=== PATIENT | male | born 1945 | race Caucasian/White ===

== ENCOUNTER 2017-01-01 11:44 | Day surgery (SDC) | payer MEDICARE, BC ==
[2016-12-31 14:51] VITALS: BMI 31.8
[2017-01-01] MEDS ORDERED: Propofol 200 MG/20 ML VIAL ONE (14:12)
[2017-01-01] MEDS ORDERED: Lidocaine 1% PF 5 ML VIAL ONE (14:12)
[2017-01-01] MEDS ORDERED: PHENYLEPHRINE-NS 100 MCG/ML 10 ML SYRINGE ONE (14:12)
--- NOTE | 2017-01-01 15:39 | OP ---
PREOPERATIVE DIAGNOSES: 1. Cirrhosis, rule out varices. 2. Chronic diarrhea. 3. History of colon polyps. PROCEDURE IN DETAIL: After informed consent was obtained, the patient was placed in the left latera l decubitus position. Anesthesia was administered per the Anesthesia Department. Forward-viewing e ndoscope was inserted into the esophagus under direct visualization with ease and passed to the seco nd portion of the duodenum where the second portion of the duodenum was normal. Random biopsies wer e taken to rule out celiac or other causes of diarrhea. The small bowel was normal. The duodenal b ulb was normal. The pylorus, antrum, body, fundus, and cardia were normal except for some atrophic gastritis. Retroflexion in the stomach was normal. No varices were seen in either stomach or esoph velma. ASSESSMENT: 1. Atrophic gastritis. 2. Otherwise normal esophagogastroduodenoscopy - no varices; status post biopsies of the second por tion of the duodenum to rule out sprue. RECOMMENDATIONS: 1. Await histopathology. 2. Proceed with colonoscopy. DESCRIPTION OF THE PROCEDURE: After informed consent was obtained, the patient placed in the left l ateral decubitus position. Anesthesia was administered per the Anesthesia Department. Forward-view ing endoscope was inserted into the rectum and passed to the cecum with ease. The cecum, ileocecal valve, and appendiceal orifice were normal. The terminal ileum was normal. The prep was good. The ascending was normal. The transverse was normal. Descending and sigmoid were normal. Four small polyps were removed from the transverse and sigmoid colon and these were all removed with cold snare . Random biopsies were taken from the left and right colon to rule out microscopic colitis. Left-s ided diverticulosis was noted as well. ASSESSMENT: 1. Four small colon polyps - status post cold snare polypectomy. 2. Left-sided diverticulosis coli. 3. Otherwise normal colonoscopy. RECOMMENDATIONS: 1. Await histopathology. 2. Follow up in my office in 2 weeks.
== END 2017-01-03 15:40 | disposition home or self-care (01) ==
LOC: SDC 11:44
PROVIDERS: ATTEND Internal Medicine Gastroenterology
PROC: 0DBL8ZX Excision of Transverse Colon, Via Natural or Artificial Opening Endoscopic, Diagnostic (ICD-10-PCS; principal; 2017-01-01)
PROC: 0DBN8ZX Excision of Sigmoid Colon, Via Natural or Artificial Opening Endoscopic, Diagnostic (ICD-10-PCS; 2017-01-01)
PROC: 0DJ08ZZ Inspection of Upper Intestinal Tract, Via Natural or Artificial Opening Endoscopic (ICD-10-PCS; 2017-01-01)
DX: D12.3 Benign neoplasm of transverse colon (principal); K63.5 Polyp of colon; K57.30 Diverticulosis of large intestine without perforation or abscess without bleeding; K29.40 Chronic atrophic gastritis without bleeding; K74.60 Unspecified cirrhosis of liver; I11.0 Hypertensive heart disease with heart failure; I50.32 Chronic diastolic (congestive) heart failure; I47.2 Ventricular tachycardia; I25.10 Atherosclerotic heart disease of native coronary artery without angina pectoris; E11.9 Type 2 diabetes mellitus without complications; E78.5 Hyperlipidemia, unspecified; Z88.1 Allergy status to other antibiotic agents; Z79.899 Other long term (current) drug therapy; Z79.82 Long term (current) use of aspirin; Z98.1 Arthrodesis status; Z98.890 Other specified postprocedural states; Z95.5 Presence of coronary angioplasty implant and graft; Z87.891 Personal history of nicotine dependence
CPT/HCPCS: 36416; 88305; J2001; J2704

== ENCOUNTER 2017-03-15 09:02 | Emergency (ER) | payer MEDICARE, BC ==
[2017-03-15] MEDS ORDERED: Morphine 4 MG/ML VIAL ONE (09:27)
[2017-03-15 09:43] LABS: #Eosinphils 0.4 thou/uL (0.0-0.7); #Lymphocytes 1.2 thou/uL (1.20-3.40); #Monocytes 0.6 thou/uL (0.11-0.59); #Neutrophils 4.9 thou/uL (1.40-6.50); %Basophils 0.3 % (0.0-1.0); %Eosinophils 5.5 % (0.0-10.0); %Lymphocytes 16.7 % (21.0-51.0); %Monocytes 7.8 % (0.0-10.0); Hematocrit 48.5 % (42.0-52.0); Mean Platelet Volume 7.5 fL (7.4-10.4); Red Blood Cell (RBC) Count 4.85 mill/uL (4.70-6.10)
[2017-03-15 09:46] LABS: PTT 29.5 SEC (22.9-36.1); Prothrombin Time 14.1 SEC (12.0-14.7)
[2017-03-15 10:03] LABS: ALT (SGPT) 63 U/L (8-55); AST (SGOT) 63 U/L (5-34); Alkaline Phosphatase 98 U/L (40-150); Anion Gap 14 mmol/L (10-20); BUN (Urea Nitrogen) 24 mg/dL (8.4-25.7); Bilirubin, Total 0.8 mg/dL (0.2-1.2); Calc. Creatinine Clearance 0 mL/min (70-130); Calcium 9.3 mg/dL (7.8-10.44); Carbon Dioxide 22 mmol/L (23-31); Chloride 104 mmol/L (98-107); Estimated GFR-MDRD 62; Globulin 3.4 g/dL (2.4-3.5); Lipase 48 U/L (8-78)
--- NOTE | 2017-03-15 11:57 | CT ---
HEAD CT WIHTOUT CONTRAST: DATE: 03/15/17. COMPARISON: 09/19/16. HISTORY: Fell out of bed, hit head on nightstand, trauma, pain. TECHNIQUE: Serial axial CT imaging obtained at 5 mm intervals from the vertex through the skull base without con trast. FINDINGS: The imaged paranasal sinuses and mastoid air cells are well aerated. There is atherosclerotic calcif ication of the cavernous carotid arteries. There is no displaced calvarial fracture, intracranial hemorrhage, midline shift, or mass effect. Th ere is atherosclerotic calcification of the distal vertebral artery. IMPRESSION: No intracranial hemorrhage or displaced calvarial fracture. POS: [facility]
--- NOTE | 2017-03-15 12:36 | CT ---
CERVICAL SPINE CT WITHOUT CONTRAST: DATE: 03/15/17. COMPARISON: 09/19/16. HISTORY: Fell out of bed, right-sided pain, trauma. TECHNIQUE: Serial axial CT imaging at 2.5 mm intervals obtained from the skull base through the lung apices with out contrast. Coronal and sagittal reformatted imaging obtained. FINDINGS: The C1 ring is intact. Moderate degenerative change present at atlantoaxial interspace. Craniocervical junction and cervico thoracic junction are intact and unchanged. There is no significant anterolisthesis or retrolisthesis seen within the cervical spine. Anterior d iskectomy and fusion hardware is present at C5-6/C6-7. There is extensive atherosclerotic calcification f the distal CCA extending into the proximal ICA and ECA bilaterally. Incompletely imaged transvenous pacing leads present. There is atherosclerotic calcification of the imaged great vessels at the level of the thoracic inlet. There is multilevel facet hypertrophic change on the left, most significant at C3-4 and C4-5 and on t he right, most prominent at C4-5, C5-6, and C6-7. There is a disk bulge with central canal stenosis at C3-4, with a probable superimposed central disk herniation, stable. Prominent facet and uncovertebral osteophyte formation on the left at C4-5 cause s neural foraminal stenosis. Posterior osteophyte and bilateral uncovertebral osteophyte formation n oted at C5-6 and C6-7. No displaced fracture or evidence of dislocation is seen. The occipital cond yles, dens, and C1-2 articulation appear within normal limits. IMPRESSION: Significant multilevel postoperative and degenerative change seen within the cervical spine, not sign ificantly changed when compared to the prior exam. No acute osseous abnormality is seen. POS: [facility]
--- NOTE | 2017-03-15 13:24 | CT ---
CT THORAX WITH IV CONTRAST CT ABDOMEN AND PELVIS WITH IV CONTRAST CT THORACIC AND LUMBAR SPINE: DATE: 03/15/17. HISTORY: Back and right shoulder pain and right rib pain after falling out of bed. COMPARISON: 09/19/16. FINDINGS: CT THORAX: A dual-lead left subclavian AICD device remains in place. Prominent atherosclerotic vascular calcifi cations are seen in the coronary arteries as well as involving the thoracic aorta. Postsurgical bradley ges related to CABG are noted. There are no findings to suggest an aortic injury. Mediastinal structures otherwise have a normal CT appearance. There is dependent bibasilar atelectasis with mild emphysematous changes seen within the right upper lobe. There is no pneumothorax or pleural effusion identified. CT ABDOMEN AND PELVIS: Again noted is lobulated contour of the liver suggesting cirrhosis. There are stable subcentimeter low-density foci seen within the left kidney which is too small to fur ther characterize. There is a lobulated appearance of the left kidney, some of which is likely relat ed to cortical scarring. The spleen, pancreas, bilateral adrenal glands, and urinary bladder demonstrate a normal CT appearanc e. Again noted is an infrarenal abdominal aortic aneurysm measuring 5.1 cm in maximal AP dimensions. Th ere is atherosclerotic plaque with an area of contrast seen in this region which could be related to small penetrating atheromatous ulcer. Dense vascular calcifications are seen throughout the abdomina l aorta and involving the iliac arteries similar to prior exam. There are no findings to suggest an acute aortic injury. There is colonic diverticulosis. No free fluid or free intraperitoneal gas is seen in the abdomen or pelvis. There has been no interv al change from the prior exam. LIMITED CT SCAN OF THORACIC AND LUMBAR SPINE: There is partial visualization of postsurgical change relating to anterior cervical fusion of the C5- 6 and C6-7 levels. Multilevel degenerative changes are seen in the thoracic as well as the lumbar spine. Again noted ar e postsurgical changes of the lumbar spine related to posterior fusion with bipedicular screws and po sterior rods transfixing the L3-4 and L4-5 levels. There is a subtle lucency surrounding the right-s ided pedicular screw in L5 suggesting hardware loosening. Vertebral body heights are within normal limits. No fracture or subluxation is visualized. IMPRESSION: 1. No acute findings are seen in the chest, abdomen, or pelvis. 2. Nodular contour of the liver which may be attributable to cirrhosis. 3. Infrarenal abdominal aortic aneurysm similar in diameter compared to the prior exam with a questi on of associated penetrating atheromatous ulcer versus eccentric atherosclerotic plaque. 4. Colonic diverticulosis. 5. Postsurgical changes of the lower cervical spine as well as involving the lower lumbar spine. No fracture or subluxation is seen involving the thoracic or lumbar spine. 6. Postsurgical changes left sacroiliac joint also seen on prior study. 7. Colonic diverticulosis. 8. The remainder of the findings are as described above. POS: [facility]
[2017-03-15] MEDS ORDERED: ISOVUE-370 76%-LOCM 1 ML ONE (17:08)
== END 2017-03-15 12:10 | disposition home or self-care (01) ==
LOC: ERS 09:02
DX: S00.83XA Contusion of other part of head, initial encounter (principal); S20.211A Contusion of right front wall of thorax, initial encounter; I25.10 Atherosclerotic heart disease of native coronary artery without angina pectoris; I11.0 Hypertensive heart disease with heart failure; I50.9 Heart failure, unspecified; E11.9 Type 2 diabetes mellitus without complications; E78.5 Hyperlipidemia, unspecified; Z79.899 Other long term (current) drug therapy; Z79.4 Long term (current) use of insulin; Z79.82 Long term (current) use of aspirin; W06.XXXA Fall from bed, initial encounter
CPT/HCPCS: 36415; 70450; 71260; 72125; 74177; 80053; 83690; 85025; 85610; 85730; 86850; 86900; 86901; 96374; J2270

== ENCOUNTER 2017-07-04 16:58 | Inpatient (IN) | payer MEDICARE, BC ==
[~2017-07-04 16:58] MED LIST: ISOVUE-370 76%-LOCM 1 ML ONE
[2017-07-04 17:49] LABS: #Basophils 0.1 thou/uL (0.0-0.2); #Eosinphils 0.4 thou/uL (0.0-0.7); #Lymphocytes 1.3 thou/uL (1.20-3.40); #Monocytes 0.8 thou/uL (0.11-0.59); #Neutrophils 4.1 thou/uL (1.40-6.50); %Basophils 0.8 % (0.0-1.0); %Eosinophils 5.4 % (0.0-10.0); %Lymphocytes 19.3 % (21.0-51.0); %Neutrophils 62.4 % (42.0-75.0); Hemoglobin 15.3 g/dL (14.0-18.0); Mean Corpuscular HGB CONC 32.9 g/dL (32.0-36.0); Mean Corpuscular Hemoglobin 32.2 pg (27.0-31.0); Mean Corpuscular Volume 97.8 fl (80.0-94.0); Mean Platelet Volume 7.7 fL (7.4-10.4); Platelet Count 164 thou/uL (130-400); RBC Distribution Width 13.7 % (11.5-14.5); Red Blood Cell (RBC) Count 4.74 mill/uL (4.70-6.10); White Blood Cell (WBC) Count 6.5 thou/uL (4.8-10.8)
[2017-07-04] MEDS ORDERED: Morphine 4 MG/ML VIAL ONE (18:00)
[2017-07-04 18:14] LABS: ALT (SGPT) 56 U/L (8-55); AST (SGOT) 70 U/L (5-34); Albumin 3.4 g/dL (3.4-4.8); Alkaline Phosphatase 103 U/L (40-150); Anion Gap 14 mmol/L (10-20); BUN (Urea Nitrogen) 19 mg/dL (8.4-25.7); Bilirubin, Total 0.8 mg/dL (0.2-1.2); CK (CPK) 64 U/L (30-200); Calc. Creatinine Clearance 0 mL/min (70-130); Calcium 9.1 mg/dL (7.8-10.44); Carbon Dioxide 23 mmol/L (23-31); Chloride 104 mmol/L (98-107); Estimated GFR-MDRD 52; Globulin 3.5 g/dL (2.4-3.5); Glucose 248 mg/dL (80-115); Potassium 4.7 mmol/L (3.5-5.1); Protein, Total 6.9 g/dL (5.8-8.1); Sodium 136 mmol/L (136-145)
[2017-07-04 18:16] LABS: Bilirubin Small (Negative); Blood, Urine Negative (Negative); Clarity CLEAR (Clear); Glucose, Urine (Dipstick) 500 mg/dL (Negative); Leukocyte Negative (Negative); Nitrite Negative (Negative); Protein, Urine (Dipstick) Negative (Neg-Trace); Specific Gravity, Urine 1.023 (1.002-1.036); pH, Urine 5.5 (5.0-9.0)
[2017-07-04 18:17] LABS: CKMB 1.8 ng/mL (0-6.6); Troponin I 0.059 ng/mL (< 0.028)
--- NOTE | 2017-07-04 19:55 | CT ---
CT HEAD NONCONTRAST: 07/04/17 INDICATION: Posttraumatic head injury, pain. FINDINGS: Reference made to 03/15/17. There is no intracranial hemorrhage, mass effect, midline shift or ventriculomegaly. Stable ossificat ion projects at the inner table left frontal bone. There is minimal chronic microvascular ischemic di sease. No acute fluid level of the imaged paranasal sinuses. IMPRESSION: No acute intracranial hemorrhage or mass effect. POS: [facility]
--- NOTE | 2017-07-04 19:57 | CT ---
CERVICAL SPINE CT NONCONTRAST: 07/04/17 INDICATION: Posttraumatic neck injury, pain. FINDINGS: Reference made to 03/15/17 exam. There is evidence of multiple anterior fusion spanning C5 through C7. No obvious acute fracture or murphy bluxation. No acute facet malalignment or significant retropulsion of bone into the vertebral canal. The craniocervical junction is intact. IMPRESSION: No obvious acute fracture of the postoperative cervical spine. POS: [facility]
--- NOTE | 2017-07-04 20:08 | CT ---
CHEST AND ABDOMEN AND PELVIS CT WITH CONTRAST CT THORACIC SPINE WITH CONTRAST AND REFORMATTED IMAGING CT LUMBAR SPINE WITH CONTRAST AND REFORMATTED IMAGING 07/04/17 CLINICAL HISTORY: Fall with injury and weakness. FINDINGS: Reference made to 03/15/17 CT exam. There are scattered patchy opacities of the lungs bilaterally, predominance of which is subpleural, a nd is similar appearing. This could be on the basis of interstitial/fibrotic lung disease. There is n o pleural effusion or pneumothorax. Scattered vascular disease is present. There is no periaortic hem atoma. There is aneurysmal dilatation of the abdominal aorta, infrarenal, measuring approximately 5.4 cm in an oblique orientation, grossly stable to prior exam. There is a cirrhotic morphology of the l iver. No definite acute posttraumatic swelling of the solid abdominal organs. Spleen is borderline in size, stable appearing. No pneumoperitoneum or significant ascites. Bowel is incompletely evaluated without enteric contrast. Patulous fat containing bilateral inguinal rings are present. Multilevel me tallic fusion involves the mid to lower lumbar spine as well as the left hemipelvis. Prior sternotomy . Left sided cardiac pacing device is present. No evidence of acute compression fracture, subluxation of the thoracolumbar spine. IMPRESSION: No definite acute posttraumatic sequela. Additional details are described above. POS: [facility]
[2017-07-04 21:03] LABS: Troponin I 0.069 ng/mL (< 0.028)
[2017-07-04] MEDS ORDERED: Methocarbamol 500 MG TAB PO SCH (22:00)
[2017-07-04] MEDS ORDERED: Aspirin 325 MG TAB ONE (22:37)
[2017-07-04] MEDS ORDERED: Enoxaparin Sodium 100 MG/ML SYRINGE ONE (23:34)
[2017-07-05 00:16] LABS: Troponin I 0.052 ng/mL (< 0.028)
[2017-07-05] MEDS ORDERED: Ondansetron HCl/PF 4 MG/2 ML Vial IVP PRN (00:48)
[2017-07-05] MEDS ORDERED: Ondansetron ODT 4 MG TAB SL PRN (00:48)
[2017-07-05] MEDS ORDERED: Acetaminophen 325 MG TAB PO PRN (00:48)
[2017-07-05] MEDS ORDERED: traMADol HCl 50 MG TAB PO PRN (01:32)
[2017-07-05 01:56] VITALS: BMI 37.3
[2017-07-05 03:27] LABS: Troponin I 0.049 ng/mL (< 0.028)
[2017-07-05] MEDS: Levothyroxine Sodium 88 MCG TAB PO SCH (05:06)
[2017-07-05] MEDS ORDERED: Methocarbamol 500 MG TAB PO SCH (09:00)
[2017-07-05] MEDS ORDERED: ZANTAC PO SCH ×2 (09:00→10:15)
[2017-07-05] MEDS ORDERED: INSULIN DEGLUDEC 35 UNIT SC SCH ×2 (09:00→10:15)
--- NOTE | 2017-07-05 09:36 | HP ---
CHIEF COMPLAINT: Status post fall, shortness of breath. HISTORY OF PRESENT ILLNESS: A 72-year-old male with a known history of coronary artery disease with prior EF calculated at less than 30%, who presents after falling and hitting his head on a truck. Th ere does not appear to be any loss of consciousness and there was no bruising or laceration noted sta tus post fall. It appears that he was previously lying down, trying to work on the vehicle, stood up and then fell after standing up. The patient also endorses having had progressive shortness of breath, particularly with exertion over the last 2 weeks. The patient states that he has been having this progressive shortness of breath m ultiple times before, particularly more frequent in the last year. At the time of my evaluation, the patient is currently at rest and states he does not have any overt shortness of breath. Denies any headache, changes in vision or dizziness. The patient denies ever h aving a prior fall similar to the one described. Patient denies any dizziness when changing position s from supine to sitting versus sitting to standing at baseline. REVIEW OF SYSTEMS: GENERAL: As per HPI. CONSTITUTIONAL: No recent fevers or chills. No significa nt weight changes in the last month that he is aware of. HEENT: No regular dizziness, no new headac hes, no new vision changes as per above. CARDIOVASCULAR: No chest pain. No chest pressure or short ness of breath with exertion as above, but none at rest. The patient does endorse some lower extremi ty swelling that has also been progressive in the last 2 weeks and this has been on and off for the l ast year. RESPIRATORY: As above, shortness of breath with exertion. Denies any cough. No postnasa l drip. No ear pain. GASTROINTESTINAL: Denies any nausea, vomiting, abdominal pain, diarrhea or co nstipation. GENITOURINARY: No issues with dysuria, change in urinary frequency, quality or quantity . MUSCULOSKELETAL: No new myalgias or arthralgias. Remainder of the review of systems otherwise negative. PAST MEDICAL HISTORY: Significant for, 1. Coronary artery disease with prior stenting and an EF as noted above. The patient denies any CAB G. 2. History of congestive heart failure. 3. JORDAN with CPAP. 4. Hypertension. 5. Hyperlipidemia. 6. Atrial fibrillation. 7. Status post ablation. 8. Status post CABG x4 vessels. 9. Status post back surgery. HOME MEDICATIONS: Please see the EMR for full details. The patient denies any changes in his home m edication in the last 2 weeks. 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 No new over the counter medications, supplements or vitamins. ALLERGIES: Includes CIPROFLOXACIN, which causes anaphylaxis. FAMILY HISTORY: The patient denies any known family history of heart failure or primary lung disease or anybody else in his family that has required a cardiac bypass surgery. SOCIAL HISTORY: The patient denies any alcohol, tobacco or drug use. Patient lives at home with his . His advanced care planning was discussed and patient wishes to be FULL CODE at this point in time. He does not meet his as his medical decision maker if he is unable to make his own medica l decisions. PHYSICAL EXAMINATION: VITAL SIGNS: Temperature 98.4, pulse of 62, respirations 20, satting 96% on 2 liters nasal cannula, blood pressure 123/92. GENERAL: The patient is awake, alert, appropriate seated in the emergency room stretcher in no acute distress, conversant, oriented x3. HEENT: Equal ocular motions are intact. Normocephalic, atraumatic. Moist mucous membranes. CARDIOVASCULAR: S1 and S2. A 2/5 systolic heart murmur best heard over the left sternal border. Pu lses 2+ in bilateral upper extremities, 2-3+ pitting pedal edema. Soft heart tones noted. RESPIRATORY: No wheezes, rales or rhonchi. Marginal air movement. Grossly clear to auscultation. ABDOMEN: Distended, but soft, positive bowel sounds. Nontender to palpation. MUSCULOSKELETAL: Able to move all 4 extremities independently. SIGNIFICANT LABORATORY DATA AND IMAGING DATA: WBC 6.5, hemoglobin 15.3, hematocrit 46.4, and platele ts 162. D-dimer 1.29, sodium 136, potassium 4.7, chloride 104, bicarbonate 23, BUN 18, creatinine 1. 35, glucose 248, total bilirubin 0.8, AST 17, ALT 56, alkaline phosphatase 103, creatinine kinase 64, troponin 0.059 followed by 0.052. UA significant for 500 of glucose and small bilirubin. On 07/04/2017, CT of the brain without contrast. Impression: No acute intracranial hemorrhage or ma ss effect. On 07/04/2017, CT of the chest, abdomen, and pelvis. Impression: No definite acute posttraumatic se quela. Additional details are described above, notable for scattered patchy opacities of the lung bi laterally, scattered vascular disease is present. There is aneurysmal dilatation of the abdominal ao rta infrarenal measuring approximately 5.4 cm in an oblique orientation grossly stable to prior exami nation. There is a cirrhotic morphology of the liver. No definite acute posttraumatic swelling of t he solid abdominal organs. ASSESSMENT AND PLAN: A 72-year-old male presenting with a chief complaint of shortness of breath and a fall after standing up. 1. Fall after standing up. 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 Check orthos tatic vital signs. Closely monitor the patient's blood pressure. Obtain echocardiogram as the patie nt has known cardiovascular disease. Could also consider carotid ultrasound as well given the patien t's history and chronology of events and negative CT noncontrast of the brain, primary stroke etiolog y is significantly less likely. 2. Shortness of breath, dyspnea with exertion. The patient has a known history of congestive heart failure with ejection fraction of less than 30% and follows Cardiology on an outpatient basis. Suspe ct that the patient's constellations of clinical symptoms are consistent with congestive heart failur e. Closely monitor the patient's diuresis as the patient is at risk for developing orthostatic hypot ension due to his episode at home. I suspect that the elevated troponins are secondary to an acute c ongestive heart failure exacerbation. Cautious inpatient IV diuresis with close monitoring of electr olytes and renal function. Consult Cardiology. Repeat echocardiogram. Trend troponins x3. Recheck EKG. 3. Elevated D-dimer in the setting of dyspnea with exertion and shortness of breath. Patient is manoj ble to undergo a repeat CTA due to having received a CT with IV contrast in the emergency department. We will check a ventilation perfusion scan for the patient as well. 4. History of abdominal aortic aneurysm. Currently, appears to be stable. Close blood pressure mon itoring. 5. Elevated creatinine. Continue to monitor closely in the setting of diuresis. 6. Hyperglycemia. Continue on home regimen. Closely monitor secondary to potentials for acute kidn ey injury as there might be decreased exogenous anti-hyperglycemic medication clearance. 7. History of cirrhosis. It is also possible that patient is having increased extravascular fluid i ncluding abdominal distention that is secondary to his cirrhotic pathology. Diuresis as per above. 8. Elevated troponin as noted above. 9. Diet: Cardiac, diabetic, hepatic. 10. Activity: Out of bed as tolerated, with physical therapy, walking program, I would also recomme nd outpatient cardiac rehabilitation at discharge. 11. Deep venous thrombosis prophylaxis. Thank you for asking me to care for your patient. If any questions or concerns, contact me at [facility].
[2017-07-05] MEDS ORDERED: Insulin Regular 300 UNITS/3 ML VIAL SC PRN (09:42)
[2017-07-05] MEDS ORDERED: Dextrose 50% Abboject 50 ML SYRINGE IVP PRN (09:42)
[2017-07-05] MEDS ORDERED: Dextrose 5% in Water 1,000 ML IV PRN (09:42)
[2017-07-05] MEDS: Ferrous Sulfate 325 MG TAB PO SCH (09:52)
[2017-07-05] MEDS: Allopurinol 100 MG TAB PO SCH (09:53)
[2017-07-05] MEDS: Potassium Chloride 20 MEQ TAB PO SCH (09:53)
[2017-07-05] MEDS: Amiodarone 200 MG TAB PO SCH (09:53)
[2017-07-05] MEDS: Furosemide 40 MG TAB PO SCH ×2 (09:54→14:40)
[2017-07-05] MEDS: Gabapentin 300 MG CAP PO SCH ×3 (09:54→21:26)
[2017-07-05] MEDS: FLUoxetine HCl 20 MG CAP PO SCH ×2 (09:54→21:26)
[2017-07-05] MEDS: Loratadine 10 MG TAB PO SCH (09:55)
[2017-07-05] MEDS: Metoprolol Tartrate 25 MG TAB PO SCH ×2 (09:55→21:25)
--- NOTE | 2017-07-05 10:21 | RAD ---
CHEST PA AND LATERAL: HISTORY: A 72-year-old male with shortness of breath. Followup fall and weakness. COMPARISON: Chest CT scan 07/04/17. FINDINGS: Left ICD. Monitor leads overlie the chest. Cardiomegaly. Mild increased markings bilaterally consi stent with some chronic change. Postop midline sternotomy. IMPRESSION: Postop midline sternotomy and implantable cardioverter defibrillator. Minimal cardiomegaly and mild chronic changes. No confluent pneumonia, overt edema, or significant pleural effusion. POS: [facility]
--- NOTE | 2017-07-05 10:38 | NM ---
VENTILATION PERFUSION LUNG SCAN: HISTORY: Elevated D-dimer. Chest injury following a fall. Shortness of breath. FINDINGS: The patient inhaled approximately 13 mCi Xenon 133 gas. Ventilation was unremarkable. Perfusion lung scan. The patient was injected with 6.6 mCi Technetium 99m MAA intravenously. No candis dence for segmental or large areas of absolute perfusion defect. Tracer distribution is slightly pat coral. Pacemaker defect is seen over the left anterior chest. IMPRESSION: Findings consistent with a very low probability of acute PE. POS: [facility]
[2017-07-05] MEDS: Methocarbamol 500 MG TAB PO SCH ×2 (14:40→21:25)
[2017-07-05] MEDS ORDERED: Sodium Chloride 0.9% 10 ML ONE (20:27)
[2017-07-05] MEDS: Aspirin 81 mg Enteric Coated Tablet PO SCH (21:26)
[2017-07-05] MEDS: Atorvastatin Calcium 40 MG TAB PO SCH (21:26)
[2017-07-05] MEDS: INSULIN DEGLUDEC 35 UNIT SC SCH (21:28)
--- NOTE | 2017-07-05 22:11 | CON ---
DATE OF CONSULTATION: 07/05/2017 HISTORY: The patient is a pleasant 72-year-old white male with longstanding history of coronary artery disease. He has undergone previous bypass surgery as well as stent placement in the LAD distal to the WHYTE insertion. He has had atrial flutter ablation, paroxysmal atrial fibrillation. He has had gastrointestinal bleeding with anticoagulation. He underwent atrial fibrillation ablation in [place] and an attempt was made to place a Watchman, but apparently his left atrium or the left atrial appendage was too small for the Watchman and it was never delivered. Also, in 08/2015, he had nonsustained ventricular tachycardia, underwent electrophysiology study, and had inducible ventricular tachycardia. His ejection fraction at that time was 50%-55%. He also underwent cardiac catheterization during that admission and his grafts were patent. He had underwent placement of a dual chamber Medtronic ICD. He has continued to have problems with diastolic heart failure. He states he has been having problems with exertional shortness of breath as well as increased peripheral edema. Yesterday, he was helping a friend work under his truck and he was on the ground. He states that he crawled out from underneath the truck and tried to get up, but was unable to. After sitting on the ground for 20 minutes, he was able to get up and walk to his truck and then he fell, striking his face on the truck. He remembers falling, remembers hitting his head, and it does not sound as if he had true syncope. He therefore was brought to the emergency room. He denies any chest discomfort, but does have some epigastric discomfort at times that radiates around both sides of his abdomen. PAST MEDICAL HISTORY: Chronic diastolic heart failure; coronary artery disease ; diabetes; atrial fibrillation, status post ablation; obesity; history of ventricular tachycardia; hyperlipidemia; obstructive sleep apnea; hypertension; mild aortic stenosis. OPERATIONS: CABG, back surgery, ICD placement. MEDICATIONS: Allopurinol 100 q.a.m., amiodarone 100 daily, aspirin 81 daily, atorvastatin 40 at bedtime, iron 65 mg daily, Prozac 40 mg b.i.d., furosemide 40 b.i.d., gabapentin 600 t.i.d., insulin, levothyroxine 88 mcg daily, metoprolol 12.5 b.i.d., potassium 20 mEq q.a.m., Zantac 75 daily. ALLERGIES: CIPRO. SOCIAL HISTORY: He does not smoke or drink. REVIEW OF SYSTEMS: Ten-point review of systems is otherwise unremarkable. PHYSICAL EXAMINATION: VITAL SIGNS: Blood pressure 109/58, pulse 61. HEENT: PERRL. NECK: Supple. CHEST: Reveals crackles at both bases. CARDIAC: S1, S2 are normal without any S3 or S4. There is a 2/6 systolic murmur in the aortic area. Carotid upstrokes are normal without bruits. ABDOMEN: Obese. Normal bowel sounds. No tenderness. EXTREMITIES: Revealed 2+ pretibial edema to the thigh. NEUROLOGIC: Grossly intact. SKIN: Warm and dry. LABORATORY DATA: EKG reveals atrial pacing with diffuse T-wave inversion. Chest x-ray revealed minimal cardiomegaly with ICD in place. Chest, abdominal, and pelvis CT revealed no definite posttraumatic sequelae. Brain CT was unremarkable. He also underwent V/Q scan, which was consistent with low probability of pulmonary embolism. Hemoglobin 15.3, hematocrit 46.4, white count 6500, platelets 164,000. Troponin I is 0.069. Sodium 136, potassium 4.7 , chloride 104, carbon dioxide 23, BUN 19, creatinine 1.35, glucose 248, AST 78 , ALT 56. IMPRESSION: 1. Fall without loss of consciousness. This may have been related to orthostatic hypotension. His blood pressure had been somewhat low here. He is only on very low dose metoprolol. 2. Acute on chronic diastolic heart failure, last ejection fraction of 50%-55% . He has rales on examination as well as significant peripheral edema. He has elevated liver function test, which may be due to hepatic congestion. 3. Status post coronary artery bypass grafting x4 as well as stent placement in the LAD distal to the left internal mammary artery. 4. History of atrial flutter ablation. 5. History of atrial fibrillation ablation. 6. Unable to place Watchman. 7. Hypertension. 8. Diabetes. 9. Hyperlipidemia. 10. Obesity. 11. Obstructive sleep apnea. 12. Hypothyroidism. PLAN: Echocardiogram will be performed to reassess left ventricular function. His ICD will be interrogated to evaluate his volume status as well as if he had any type of arrhythmia that could have precipitated this fall. He does not appear to be diuresing well with the p.o. Lasix and I feel we should switch this to IV for better diuresis. Also, his blood pressure needed to be watched closely and consideration may need to be given to further reduction or discontinuation of his metoprolol. MTDD
[2017-07-06] MEDS: Methocarbamol 500 MG TAB PO SCH ×3 (06:23→21:44)
[2017-07-06] MEDS: Levothyroxine Sodium 88 MCG TAB PO SCH (06:24)
[2017-07-06] MEDS: INSULIN DEGLUDEC 35 UNIT SC SCH ×2 (08:43→21:53)
[2017-07-06] MEDS: Gabapentin 300 MG CAP PO SCH ×3 (08:44→21:43)
[2017-07-06] MEDS: Furosemide 40 MG TAB PO SCH (08:44)
[2017-07-06] MEDS: Allopurinol 100 MG TAB PO SCH (08:44)
[2017-07-06] MEDS: FLUoxetine HCl 20 MG CAP PO SCH ×2 (08:44→21:43)
[2017-07-06] MEDS: Amiodarone 200 MG TAB PO SCH (08:45)
[2017-07-06] MEDS: Metoprolol Tartrate 25 MG TAB PO SCH ×2 (08:45→21:43)
[2017-07-06] MEDS: Loratadine 10 MG TAB PO SCH (08:45)
[2017-07-06] MEDS: Ferrous Sulfate 325 MG TAB PO SCH (08:45)
[2017-07-06] MEDS: Potassium Chloride 20 MEQ TAB PO SCH (08:45)
[2017-07-06] MEDS: ZANTAC PO SCH (08:46)
--- NOTE | 2017-07-06 10:37 | PDOC.PN ---
- Subjective Encounter Start Date: 07/06/17 Encounter Start Time: 10:44 Subjective: No new complaints. -: No acute events overnight. - Objective MAR Reviewed: Yes Vital Signs & Weight: Vital Signs (12 hours) Temp Pulse Resp BP BP Pulse Ox 07/06/17 08:38 98.6 F 61 136/60 97 07/06/17 04:00 98.1 F 60 12 119/61 93 L 07/05/17 23:36 97.8 F 62 13 125/63 94 L Weight Weight 282 lb 1.6 oz I&O: 07/05/17 07/06/17 07/07/17 06:59 06:59 06:59 Intake Total 120 1000 Output Total 175 1775 Balance -55 -775 Result Diagrams: 07/04/17 17:36 07/04/17 17:36 Additional Labs: Accuchecks 07/06/17 07/05/17 07/05/17 06:19 21:10 16:54 POC Glucose 189 H 150 H 165 H 07/05/17 10:47 POC Glucose 115 H Phys Exam - Physical Examination Constitutional: NAD HEENT: PERRLA, moist MMs, sclera anicteric Neck: no JVD, supple, full ROM + bibasilar crackles. Otherwise clear breath sounds. Cardiovascular: RRR, no significant murmur, no rub Gastrointestinal: soft, non-tender, no distention, positive bowel sounds Musculoskeletal: edema present (b/l lower extremities. ) Neurological: non-focal, moves all 4 limbs Psychiatric: normal affect, A&O x 3 Skin: no rash, normal turgor Dx/Plan (1) Acute CHF Code(s): I50.9 - HEART FAILURE, UNSPECIFIED Status: Acute Qualifiers: Heart failure type: diastolic Comment: Has been switched to IV diuresis w Lasix. Will monitor I/O, weights and continue home medications. ECHO pending. Cardiology on board. Recs appreciated. (2) Elevated d-dimer Code(s): R79.89 - OTHER SPECIFIED ABNORMAL FINDINGS OF BLOOD CHEMISTRY Status : Acute Comment: Suspicion for PE but VQ scan w low probability for PE. (3) Elevated serum creatinine Code(s): R79.89 - OTHER SPECIFIED ABNORMAL FINDINGS OF BLOOD CHEMISTRY Status : Acute Comment: Monitor. Likely cardiorenal 2/2 Acute CHF. (4) Elevated troponin Code(s): R74.8 - ABNORMAL LEVELS OF OTHER SERUM ENZYMES Status: Acute Comment: Most likely type 2 NSTEMI from demand ischemia due to acute heart failure (5) Hypothyroidism Code(s): E03.9 - HYPOTHYROIDISM, UNSPECIFIED Status: Acute Qualifiers: Hypothyroidism type: unspecified Qualified Code(s): E03.9 - Hypothyroidism , unspecified Comment: Continue Levothyroxine. (6) Fall Code(s): W19.XXXA - UNSPECIFIED FALL, INITIAL ENCOUNTER Status: Acute Qualifiers: Encounter type: subsequent encounter Qualified Code(s): W19.XXXD - Unspecified fall, subsequent encounter Comment: Orthostatic hypotension versus arrhythmia. Device will be interrogated. Monitor on tele meanwhile. (7) CAD (coronary artery disease) Code(s): I25.10 - ATHSCL HEART DISEASE OF [place] CORONARY ARTERY W/O ANG PCTRS Status: Chronic Comment: EKG and troponins negative. Nuclear stress test shows no reversible ischemia. (8) DM2 (diabetes mellitus, type 2) Status: Chronic (9) HLD (hyperlipidemia) Code(s): E78.5 - HYPERLIPIDEMIA, UNSPECIFIED Status: Chronic (10) HTN (hypertension) Code(s): I10 - ESSENTIAL (PRIMARY) HYPERTENSION Status: Chronic (11) Paroxysmal atrial fibrillation Code(s): I48.0 - PAROXYSMAL ATRIAL FIBRILLATION Status: Chronic Comment: Rate controlled. Continue ASA, metoprolol, amiodarone. (12) Cirrhosis Code(s): K74.60 - UNSPECIFIED CIRRHOSIS OF LIVER Status: Acute Plan: Monitor - Plan cont current plan of care, out of bed/ambulate, DVT proph w/SCDs f/u cardiology recs -: Continue IV diuresis -: Monitor creatinine. * .
[2017-07-06] MEDS: Furosemide 40 MG/4 ML VIAL SLOW IVP SCH (13:17)
[2017-07-06] MEDS: Aspirin 81 mg Enteric Coated Tablet PO SCH (21:43)
[2017-07-06] MEDS: Atorvastatin Calcium 40 MG TAB PO SCH (21:43)
[2017-07-07] MEDS: Furosemide 40 MG/4 ML VIAL SLOW IVP SCH (05:45)
[2017-07-07] MEDS: Methocarbamol 500 MG TAB PO SCH ×3 (05:46→21:52)
[2017-07-07] MEDS: Levothyroxine Sodium 88 MCG TAB PO SCH (05:46)
[2017-07-07 05:48] LABS: #Eosinphils 0.5 thou/uL (0.0-0.7); #Lymphocytes 1.5 thou/uL (1.20-3.40); #Monocytes 0.7 thou/uL (0.11-0.59); #Neutrophils 2.9 thou/uL (1.40-6.50); %Basophils 0.5 % (0.0-1.0); %Eosinophils 8.5 % (0.0-10.0); %Lymphocytes 26.2 % (21.0-51.0); %Monocytes 12.7 % (0.0-10.0); %Neutrophils 52.2 % (42.0-75.0); Hemoglobin 15.1 g/dL (14.0-18.0); Mean Corpuscular HGB CONC 33.4 g/dL (32.0-36.0); Mean Corpuscular Hemoglobin 33.4 pg (27.0-31.0); Mean Corpuscular Volume 99.8 fl (80.0-94.0); Mean Platelet Volume 8.4 fL (7.4-10.4); Platelet Count 165 thou/uL (130-400); RBC Distribution Width 13.6 % (11.5-14.5); Red Blood Cell (RBC) Count 4.53 mill/uL (4.70-6.10); White Blood Cell (WBC) Count 5.6 thou/uL (4.8-10.8)
[2017-07-07 06:02] LABS: Anion Gap 15 mmol/L (10-20); BUN (Urea Nitrogen) 24 mg/dL (8.4-25.7); Calc. Creatinine Clearance 106 mL/min (70-130); Calcium 8.9 mg/dL (7.8-10.44); Carbon Dioxide 21 mmol/L (23-31); Chloride 105 mmol/L (98-107); Estimated GFR-MDRD 62; Glucose 115 mg/dL (80-115); Potassium 3.9 mmol/L (3.5-5.1); Sodium 137 mmol/L (136-145)
[2017-07-07] MEDS: FLUoxetine HCl 20 MG CAP PO SCH ×2 (11:14→21:51)
[2017-07-07] MEDS: Allopurinol 100 MG TAB PO SCH (11:14)
[2017-07-07] MEDS: Metoprolol Tartrate 25 MG TAB PO SCH (11:15)
[2017-07-07] MEDS: Gabapentin 300 MG CAP PO SCH ×3 (11:15→21:51)
[2017-07-07] MEDS: Amiodarone 200 MG TAB PO SCH (11:18)
[2017-07-07] MEDS: Loratadine 10 MG TAB PO SCH (11:19)
[2017-07-07] MEDS: Potassium Chloride 20 MEQ TAB PO SCH (11:20)
[2017-07-07] MEDS: Ferrous Sulfate 325 MG TAB PO SCH (11:20)
[2017-07-07] MEDS: ZANTAC PO SCH (11:21)
[2017-07-07] MEDS: INSULIN DEGLUDEC 35 UNIT SC SCH ×2 (11:26→21:50)
--- NOTE | 2017-07-07 12:21 | PDOC.PN ---
- Subjective Encounter Start Date: 07/07/17 Encounter Start Time: 12:26 Subjective: No complaints. Reports doing well. -: No acute events overngight. - Objective MAR Reviewed: Yes Vital Signs & Weight: Vital Signs (12 hours) Temp Pulse Resp BP Pulse Ox 07/07/17 08:20 97.6 F 60 16 131/64 92 L 07/07/17 05:42 97.8 F 60 13 114/55 L 94 L Weight Weight 280 lb 6.4 oz I&O: 07/06/17 07/07/17 07/08/17 06:59 06:59 06:59 Intake Total 1000 1680 500 Output Total 1775 2555 1400 Balance -479 -025 -116 Result Diagrams: 07/07/17 04:49 07/07/17 04:49 Additional Labs: Accuchecks 07/07/17 07/07/17 07/06/17 11:26 05:28 20:31 POC Glucose 123 H 127 H 187 H 07/06/17 16:36 POC Glucose 147 H Phys Exam - Physical Examination Constitutional: NAD HEENT: PERRLA, moist MMs, sclera anicteric Neck: no JVD, supple, full ROM Respiratory: no wheezing, no rales, no rhonchi, clear to auscultation bilateral Cardiovascular: RRR, no rub systolic murmur Gastrointestinal: soft, non-tender, no distention, positive bowel sounds Musculoskeletal: pulses present, edema present Neurological: non-focal, moves all 4 limbs Psychiatric: normal affect, A&O x 3 Skin: no rash, normal turgor Dx/Plan (1) Acute CHF Code(s): I50.9 - HEART FAILURE, UNSPECIFIED Status: Acute Qualifiers: Heart failure type: diastolic Comment: Improving. Currently on IV diuresis w Lasix. Will monitor I/O, weights and continue home medications. ECHO pending. Cardiology on board. Recs appreciated. (2) Elevated d-dimer Code(s): R79.89 - OTHER SPECIFIED ABNORMAL FINDINGS OF BLOOD CHEMISTRY Status : Acute Comment: Suspicion for PE but VQ scan w low probability for PE. (3) Elevated serum creatinine Code(s): R79.89 - OTHER SPECIFIED ABNORMAL FINDINGS OF BLOOD CHEMISTRY Status : Resolved Comment: Resolved. Likely cardiorenal 2/2 Acute CHF. (4) Elevated troponin Code(s): R74.8 - ABNORMAL LEVELS OF OTHER SERUM ENZYMES Status: Acute Comment: Chest pain free. Most likely type 2 NSTEMI from demand ischemia due to acute heart failure (5) Hypothyroidism Code(s): E03.9 - HYPOTHYROIDISM, UNSPECIFIED Status: Acute Qualifiers: Hypothyroidism type: unspecified Qualified Code(s): E03.9 - Hypothyroidism , unspecified Comment: Continue Levothyroxine. (6) Fall Code(s): W19.XXXA - UNSPECIFIED FALL, INITIAL ENCOUNTER Status: Acute Qualifiers: Encounter type: subsequent encounter Qualified Code(s): W19.XXXD - Unspecified fall, subsequent encounter Comment: Orthostatic hypotension versus arrhythmia. Device to be interrogated. Monitor on tele. (7) CAD (coronary artery disease) Code(s): I25.10 - ATHSCL HEART DISEASE OF [place] CORONARY ARTERY W/O ANG PCTRS Status: Chronic Comment: Chest pain free. Continue home medications. (8) DM2 (diabetes mellitus, type 2) Status: Chronic Qualifiers: Diabetes mellitus complication status: without complication Comment: At goal. Continue current regimen. (9) HLD (hyperlipidemia) Code(s): E78.5 - HYPERLIPIDEMIA, UNSPECIFIED Status: Chronic Qualifiers: Hyperlipidemia type: unspecified Qualified Code(s): E78.5 - Hyperlipidemia , unspecified Comment: Continue Statins (10) HTN (hypertension) Code(s): I10 - ESSENTIAL (PRIMARY) HYPERTENSION Status: Chronic (11) Paroxysmal atrial fibrillation Code(s): I48.0 - PAROXYSMAL ATRIAL FIBRILLATION Status: Chronic Comment: Rate controlled. Continue ASA, metoprolol, amiodarone. (12) Cirrhosis Code(s): K74.60 - UNSPECIFIED CIRRHOSIS OF LIVER Status: Acute Qualifiers: Hepatic cirrhosis type: unspecified hepatic cirrhosis Ascites presence: without ascites Qualified Code(s): K74.60 - Unspecified cirrhosis of liver - Plan cont current plan of care, DVT proph w/SCDs * . Review of Systems - Medications/Allergies Allergies/Adverse Reactions: Allergies Allergy/AdvReac Type Severity Reaction Status Date / Time ciprofloxacin [From Cipro] Allergy Severe Anaphylaxis Verified 07/05/17 01:21 ciprofloxacin HCl Allergy Unknown Verified 07/05/17 01:21 [From Cipro] Medications: Current Medications [facility] [place] [facility] Admin: 03/19/18 11:14 Dose: 100 mg Amiodarone HCl (Cordarone) 100 mg PO QAM [facility] Last Admin: 07/07/17 11:18 Dose: 100 mg Aspirin (Ecotrin) 81 mg PO QPM [facility] Last Admin: 07/06/17 21:43 Dose: 81 mg Atorvastatin Calcium (Lipitor) 40 mg PO HS [facility] Last Admin: 07/06/17 21:43 Dose: 40 mg Dextrose/Water (Dextrose 50%) 25 gm IVP PRN PRN PRN Reason: HYPOGLYCEMIA PROTOCOL Ferrous Sulfate (Feosol) 325 mg PO QAM-WM [facility] Last Admin: 07/07/17 11:20 Dose: 325 mg Fluoxetine HCl (Prozac) 40 mg PO BID [facility] Last Admin: 07/07/17 11:14 Dose: 40 mg Gabapentin (Neurontin) 600 mg PO TID [facility] Last Admin: 07/07/17 11:15 Dose: 600 mg Glucagon (Glucagon) 1 mg IM PRN PRN PRN Reason: HYPOGLYCEMIA PROTOCOL Dextrose/Water (D5w) 1,000 mls @ 0 mls/hr IV INF PRN; As Directed PRN Reason: HYPOGLYCEMIA PROTOCOL Insulin Human Regular (Humulin R) 0 units SC .MILD SLIDING PRN; Protocol PRN Reason: MILD SLIDING SCALE Levothyroxine Sodium (Synthroid) 88 mcg PO 0600 [facility] Last Admin: 07/07/17 05:46 Dose: 88 mcg Loratadine (Claritin) 10 mg PO DAILY [facility] Last Admin: 07/07/17 11:19 Dose: 10 mg Methocarbamol (Robaxin) 750 mg PO Q8HR [facility] Last Admin: 07/07/17 05:46 Dose: 750 mg (Insulin Degludec [ Tresiba Flextouch U- 200] 35 Units) 35 each SC BID [facility] Last Admin: 07/07/17 11:26 Dose: 35 each Zantac (Ranitidine) (75 Mg Tab) 1 each PO QAM [facility] Last Admin: 07/07/17 11:21 Dose: 1 each Potassium Chloride (K-Dur) 20 meq PO QAM-WM [facility] Last Admin: 07/07/17 11:20 Dose: 20 meq Tramadol HCl (Ultram) 50 mg PO Q4H PRN PRN Reason: Moderate Pain (4-6) Last Admin: 07/05/17 05:06 Dose: 50 mg
[2017-07-07] MEDS: Atorvastatin Calcium 40 MG TAB PO SCH (21:51)
[2017-07-07] MEDS: Aspirin 81 mg Enteric Coated Tablet PO SCH (21:51)
[2017-07-08] MEDS: Levothyroxine Sodium 88 MCG TAB PO SCH (05:26)
[2017-07-08] MEDS: Methocarbamol 500 MG TAB PO SCH ×3 (05:26→21:11)
[2017-07-08 05:35] LABS: #Basophils 0.1 thou/uL (0.0-0.2); #Eosinphils 0.5 thou/uL (0.0-0.7); #Lymphocytes 1.3 thou/uL (1.20-3.40); #Monocytes 0.7 thou/uL (0.11-0.59); #Neutrophils 3.2 thou/uL (1.40-6.50); %Basophils 1.3 % (0.0-1.0); %Eosinophils 9.2 % (0.0-10.0); %Lymphocytes 22.6 % (21.0-51.0); %Monocytes 12.4 % (0.0-10.0); %Neutrophils 54.5 % (42.0-75.0); Mean Corpuscular HGB CONC 33.4 g/dL (32.0-36.0); Mean Corpuscular Hemoglobin 32.6 pg (27.0-31.0); Mean Corpuscular Volume 97.6 fl (80.0-94.0); Mean Platelet Volume 7.2 fL (7.4-10.4); Platelet Count 167 thou/uL (130-400); RBC Distribution Width 13.4 % (11.5-14.5)
[2017-07-08 05:55] LABS: Anion Gap 13 mmol/L (10-20); BUN (Urea Nitrogen) 25 mg/dL (8.4-25.7); Calc. Creatinine Clearance 115 mL/min (70-130); Calcium 9.2 mg/dL (7.8-10.44); Carbon Dioxide 23 mmol/L (23-31); Chloride 104 mmol/L (98-107); Estimated GFR-MDRD 68; Glucose 96 mg/dL (80-115); Potassium 3.8 mmol/L (3.5-5.1); Sodium 136 mmol/L (136-145)
[2017-07-08] MEDS: Ferrous Sulfate 325 MG TAB PO SCH (09:55)
[2017-07-08] MEDS: Loratadine 10 MG TAB PO SCH (09:56)
[2017-07-08] MEDS: Gabapentin 300 MG CAP PO SCH ×3 (09:56→21:11)
[2017-07-08] MEDS: Amiodarone 200 MG TAB PO SCH (09:56)
[2017-07-08] MEDS: ZANTAC PO SCH (09:56)
[2017-07-08] MEDS: Potassium Chloride 20 MEQ TAB PO SCH (09:56)
[2017-07-08] MEDS: FLUoxetine HCl 20 MG CAP PO SCH ×2 (09:56→21:10)
[2017-07-08] MEDS: Allopurinol 100 MG TAB PO SCH (09:57)
[2017-07-08] MEDS: INSULIN DEGLUDEC 35 UNIT SC SCH ×2 (10:05→21:55)
--- NOTE | 2017-07-08 11:28 | PDOC.PN ---
- Subjective Encounter Start Date: 07/08/17 Encounter Start Time: 11:30 Subjective: No complaints today. Chest pain free, ambulating well. -: No acute events overnight. - Objective MAR Reviewed: Yes Vital Signs & Weight: Vital Signs (12 hours) Temp Pulse Resp BP Pulse Ox 07/08/17 08:10 98.0 F 60 16 120/58 L 94 L 07/08/17 03:15 97.9 F 62 16 114/62 93 L Weight Weight 281 lb 8 oz I&O: 07/07/17 07/08/17 07/09/17 06:59 06:59 06:59 Intake Total 1680 1420 Output Total 2555 2900 Balance -875 -1480 Result Diagrams: 07/08/17 05:05 07/08/17 05:05 Additional Labs: Accuchecks 07/08/17 07/08/17 07/07/17 11:05 05:37 20:15 POC Glucose 152 H 88 124 H 07/07/17 07/07/17 16:27 11:26 POC Glucose 150 H 123 H Phys Exam - Physical Examination Constitutional: NAD HEENT: PERRLA, moist MMs, sclera anicteric Neck: no JVD Respiratory: no wheezing, clear to auscultation bilateral Cardiovascular: RRR, no significant murmur, no rub Gastrointestinal: soft, non-tender, no distention, positive bowel sounds Musculoskeletal: pulses present, edema present (1+ b/l lower extremities. ) Neurological: non-focal, moves all 4 limbs Dx/Plan (1) Acute CHF Code(s): I50.9 - HEART FAILURE, UNSPECIFIED Status: Acute Qualifiers: Heart failure type: diastolic Comment: Improving. Currently on IV diuresis w Lasix. Will monitor I/O, weights and continue home medications. ECHO done, formal report pending. Cardiology on board. Recs appreciated. (2) Elevated serum creatinine Code(s): R79.89 - OTHER SPECIFIED ABNORMAL FINDINGS OF BLOOD CHEMISTRY Status : Resolved Comment: Resolved. Likely cardiorenal 2/2 Acute CHF. (3) Elevated troponin Code(s): R74.8 - ABNORMAL LEVELS OF OTHER SERUM ENZYMES Status: Acute Comment: Chest pain free. Most likely type 2 NSTEMI from demand ischemia due to acute heart failure (4) Hypothyroidism Code(s): E03.9 - HYPOTHYROIDISM, UNSPECIFIED Status: Acute Qualifiers: Hypothyroidism type: unspecified Qualified Code(s): E03.9 - Hypothyroidism , unspecified Comment: Continue Levothyroxine. (5) Fall Code(s): W19.XXXA - UNSPECIFIED FALL, INITIAL ENCOUNTER Status: Resolved Qualifiers: Encounter type: subsequent encounter Qualified Code(s): W19.XXXD - Unspecified fall, subsequent encounter Comment: Most likely 2/2 orthostatic hypotension. Resolved. Device interrogated. Monitor on tele. (6) CAD (coronary artery disease) Code(s): I25.10 - ATHSCL HEART DISEASE OF [place] CORONARY ARTERY W/O ANG PCTRS Status: Chronic Qualifiers: Coronary Disease-Associated Artery/Lesion type: bypass graft [place] vs. transplanted heart: [place] heart Associated angina: without angina Qualified Code(s): I25.810 - Atherosclerosis of coronary artery bypass graft(s) without angina pectoris Comment: Chest pain free. Continue home medications. (7) DM2 (diabetes mellitus, type 2) Status: Chronic Qualifiers: Diabetes mellitus complication status: without complication Comment: At goal. Continue current regimen. (8) HLD (hyperlipidemia) Code(s): E78.5 - HYPERLIPIDEMIA, UNSPECIFIED Status: Chronic Qualifiers: Hyperlipidemia type: unspecified Qualified Code(s): E78.5 - Hyperlipidemia , unspecified Comment: Continue Statins (9) HTN (hypertension) Code(s): I10 - ESSENTIAL (PRIMARY) HYPERTENSION Status: Chronic Qualifiers: Hypertension type: essential hypertension Qualified Code(s): I10 - Essential (primary) hypertension Comment: Controlled. Continue metoprolol (10) Paroxysmal atrial fibrillation Code(s): I48.0 - PAROXYSMAL ATRIAL FIBRILLATION Status: Chronic Comment: Rate controlled. Continue ASA, metoprolol, amiodarone. (11) Cirrhosis Code(s): K74.60 - UNSPECIFIED CIRRHOSIS OF LIVER Status: Acute Qualifiers: Hepatic cirrhosis type: unspecified hepatic cirrhosis Ascites presence: without ascites Qualified Code(s): K74.60 - Unspecified cirrhosis of liver (12) Elevated d-dimer Code(s): R79.89 - OTHER SPECIFIED ABNORMAL FINDINGS OF BLOOD CHEMISTRY Status : Acute Comment: Suspicion for PE but VQ scan w low probability for PE. - Plan cont current plan of care * . Review of Systems - Medications/Allergies Allergies/Adverse Reactions: Allergies Allergy/AdvReac Type Severity Reaction Status Date / Time ciprofloxacin [From Cipro] Allergy Severe Anaphylaxis Verified 07/05/17 01:21 ciprofloxacin HCl Allergy Unknown Verified 07/05/17 01:21 [From Cipro] Medications: Current Medications Allopurinol (Zyloprim) 100 mg PO QAM [facility] Last Admin: 07/08/17 09:57 Dose: 100 mg Amiodarone HCl (Cordarone) 100 mg PO QAM [facility] Last Admin: 07/08/17 09:56 Dose: 100 mg Aspirin (Ecotrin) 81 mg PO QPM [facility] Last Admin: 07/07/17 21:51 Dose: 81 mg Atorvastatin Calcium (Lipitor) 40 mg PO HS [facility] Last Admin: 07/07/17 21:51 Dose: 40 mg Dextrose/Water (Dextrose 50%) 25 gm IVP PRN PRN PRN Reason: HYPOGLYCEMIA PROTOCOL Ferrous Sulfate (Feosol) 325 mg PO QAM-WM [facility] Last Admin: 07/08/17 09:55 Dose: 325 mg Fluoxetine HCl (Prozac) 40 mg PO BID [facility] Last Admin: 07/08/17 09:56 Dose: 40 mg Gabapentin (Neurontin) 600 mg PO TID [facility] Last Admin: 07/08/17 09:56 Dose: 600 mg Glucagon (Glucagon) 1 mg IM PRN PRN PRN Reason: HYPOGLYCEMIA PROTOCOL Dextrose/Water (D5w) 1,000 mls @ 0 mls/hr IV INF PRN; As Directed PRN Reason: HYPOGLYCEMIA PROTOCOL Insulin Human Regular (Humulin R) 0 units SC .MILD SLIDING PRN; Protocol PRN Reason: MILD SLIDING SCALE Levothyroxine Sodium (Synthroid) 88 mcg PO 0600 [facility] Last Admin: 07/08/17 05:26 Dose: 88 mcg Loratadine (Claritin) 10 mg PO DAILY [facility] Last Admin: 07/08/17 09:56 Dose: 10 mg Methocarbamol (Robaxin) 750 mg PO Q8HR [facility] Last Admin: 07/08/17 05:26 Dose: 750 mg (Insulin Degludec [ Tresiba Flextouch U- 200] 35 Units) 35 each SC BID [facility] Last Admin: 07/08/17 10:05 Dose: 35 each Zantac (Ranitidine) (75 Mg Tab) 1 each PO QAM [facility] Last Admin: 07/08/17 09:56 Dose: 1 each Potassium Chloride (K-Dur) 20 meq PO QAM-WM [facility] Last Admin: 07/08/17 09:56 Dose: 20 meq Tramadol HCl (Ultram) 50 mg PO Q4H PRN PRN Reason: Moderate Pain (4-6) Last Admin: 07/05/17 05:06 Dose: 50 mg
[2017-07-08] MEDS ORDERED: Furosemide 40 MG/4 ML VIAL SLOW IVP SCH (11:30)
[2017-07-08] MEDS: Furosemide 40 MG/4 ML VIAL SLOW IVP SCH (15:31)
--- NOTE | 2017-07-08 19:32 | PRG ---
DATE OF SERVICE: 07/08/2017 SUBJECTIVE: Mr. Subramanian is feeling better. He is not short of breath. He still has some edema. No chest pain. OBJECTIVE: VITAL SIGNS: Blood pressure 120/56, pulse 60 is regular. LUNGS: Clear. CARDIAC: Normal S1 and normal S2. ABDOMEN: Soft, nontender. EXTREMITIES: Still mild to moderate edema. ASSESSMENT: 1. Congestive heart failure, diastolic. Ejection fraction is normal on echocardiogram. 2. Coronary artery disease graft patent at most recent catheterization. 3. Episode of near syncope, probably orthostatic hypotension. 4. Previous defibrillator implantation. PLAN: 1. Continue intravenous diuretics. 2. Probably go home tomorrow if he stable.
[2017-07-08] MEDS: Atorvastatin Calcium 40 MG TAB PO SCH (21:10)
[2017-07-08] MEDS: Aspirin 81 mg Enteric Coated Tablet PO SCH (21:10)
[2017-07-09 05:00] LABS: #Eosinphils 0.5 thou/uL (0.0-0.7); #Lymphocytes 1.1 thou/uL (1.20-3.40); #Monocytes 0.7 thou/uL (0.11-0.59); #Neutrophils 3.9 thou/uL (1.40-6.50); %Basophils 0.3 % (0.0-1.0); %Lymphocytes 17.8 % (21.0-51.0); %Monocytes 10.8 % (0.0-10.0); %Neutrophils 63.1 % (42.0-75.0); Hemoglobin 16.7 g/dL (14.0-18.0); Mean Corpuscular HGB CONC 32.7 g/dL (32.0-36.0); Mean Corpuscular Volume 98.1 fl (80.0-94.0); Mean Platelet Volume 7.3 fL (7.4-10.4); Platelet Count 182 thou/uL (130-400); RBC Distribution Width 13.5 % (11.5-14.5); White Blood Cell (WBC) Count 6.2 thou/uL (4.8-10.8)
[2017-07-09 05:15] LABS: Anion Gap 14 mmol/L (10-20); BUN (Urea Nitrogen) 22 mg/dL (8.4-25.7); Calc. Creatinine Clearance 103 mL/min (70-130); Calcium 9.5 mg/dL (7.8-10.44); Carbon Dioxide 27 mmol/L (23-31); Chloride 101 mmol/L (98-107); Estimated GFR-MDRD 60; Glucose 118 mg/dL (80-115); Potassium 3.8 mmol/L (3.5-5.1); Sodium 138 mmol/L (136-145)
[2017-07-09] MEDS: Levothyroxine Sodium 88 MCG TAB PO SCH (06:24)
[2017-07-09] MEDS: Furosemide 40 MG/4 ML VIAL SLOW IVP SCH (06:24)
[2017-07-09] MEDS: Methocarbamol 500 MG TAB PO SCH (06:24)
[2017-07-09] MEDS: ZANTAC PO SCH (09:22)
[2017-07-09] MEDS: INSULIN DEGLUDEC 35 UNIT SC SCH (09:22)
[2017-07-09] MEDS: FLUoxetine HCl 20 MG CAP PO SCH (09:23)
[2017-07-09] MEDS: Allopurinol 100 MG TAB PO SCH (09:24)
[2017-07-09] MEDS: Potassium Chloride 20 MEQ TAB PO SCH (09:24)
[2017-07-09] MEDS: Ferrous Sulfate 325 MG TAB PO SCH (09:24)
[2017-07-09] MEDS: Loratadine 10 MG TAB PO SCH (09:24)
[2017-07-09] MEDS: Amiodarone 200 MG TAB PO SCH (09:24)
[2017-07-09] MEDS: Gabapentin 300 MG CAP PO SCH (09:24)
--- NOTE | 2017-07-09 10:59 | HP ---
DATE OF SERVICE: 07/09/2017 SUBJECTIVE: Mr. Subramanian is doing well, awake and alert today. No chest pain and the edema is better as well. OBJECTIVE: VITAL SIGNS: Blood pressure 118/61 and pulse 70 and regular. LUNGS: Clear. CARDIAC: Normal S1 and S2. ABDOMEN: Soft and nontender. EXTREMITIES: Only mild edema. LABORATORY AND X-RAY FINDINGS: Hemoglobin is 16.7. The potassium 3.8, creatinine 1.2. The last TSH as seen in the computer is 3.89. I am going to go ahead and order a TSH prior to being discharged. ASSESSMENT: 1. Diastolic heart failure, improved. 2. Coronary artery disease, stable. 3. Recent fall, probably related to orthostatic hypotension. 4. Previous defibrillator, normal function, no arrhythmias. PLAN: 1. He is currently on furosemide 40 mg twice a day orally, dose to be increased if needed. 2. Atorvastatin 40 mg daily. 3. Aspirin 81 mg daily. 4. Amiodarone 100 mg a day.
[2017-07-09 12:49] VITALS: BP 133/75; TEMP 97.9
--- NOTE | 2017-07-09 15:24 | DIS ---
DATE OF ADMISSION: 07/04/2017 DATE OF DISCHARGE: 07/09/2017 DISCHARGE DIAGNOSES: 1. Acute on chronic congestive heart failure. 2. Elevated serum creatinine. 3. Elevated troponin due to type 2 [id number]-[id number] elevation myocardial infarction. 4. Hypothyroidism. 5. Status post fall. 6. Coronary artery disease. 7. Type 2 diabetes mellitus. 8. Hyperlipidemia. 9. Hypertension. 10. Paroxysmal atrial fibrillation. 11. Liver cirrhosis. 12. Elevated D-dimer HISTORY OF PRESENT ILLNESS/HOSPITAL COURSE: A 72-year-old with a history of CAD with EF less than 30 %, who presented to the emergency room after falling and hitting his head on the truck. There was no loss of consciousness and there was no bruising or laceration and no chest pain status post his fall . He was previously lying down, trying to work on the vehicle, stood up and then fell after he stood up from a lying position. He also complains of progressively shortness of breath, particularly with exertion over the last 2 weeks before he presented. He has been having these symptoms multiple time s before, particularly more frequently in the last year. At time of evaluation he was at rest and di d not have any shortness of breath. Denies any headache, changes in vision. He denies previous fall episodes, dizziness. Physical examination showed marked bilateral lower extremity edema. LABORATORY: Showed D-dimer of 1.29, creatinine of 1.35, glucose 248, and troponin 0.059, which trend ed down and elevated BNP. He had a CT scan of the brain without contrast which showed no acute patho logy. He also had imaging for ruling out PE which was negative as well. He was admitted for CHF exa cerbation and started on IV diuretics with good response. He had an echocardiogram done and it showe d an ejection fraction of 55-60% with EF for reversal noted suggestive of diastolic dysfunction. He also had aortic valve that was sclerotic, but no significant stenosis. He had trace aortic insuffici ency. He was also reviewed by Cardiology who continued him on the medications. DISCHARGE MEDICATIONS: Include allopurinol 100 mg daily, amiodarone 100 mg p.o. q.a.m., aspirin 81 m g daily, atorvastatin 40 mg at bedtime, iron sulfate 325 mg tablet, Prozac 40 mg b.i.d., furosemide 4 0 mg b.i.d., gabapentin 600 mg t.i.d., insulin degludec 35 units subcu b.i.d., levocetirizine 5 mg da rohan, levothyroxine 88 mcg daily, metoprolol 12.5 mg b.i.d., potassium chloride 20 mEq q.a.m., tramado l 50-100 mg, Zantac 75 mg q.a.m. PHYSICAL EXAMINATION: He was examined on the day of discharge. VITAL SIGNS: Temperature 97.6 degree Fahrenheit, pulse rate 71, respiratory rate 16, oxygen saturati on 96% on room air, blood pressure 118/61. GENERAL: Not in acute distress, sitting comfortably in bed. HEENT: PERRLA, EOMI. Moist mucous membranes. Sclerae are anicteric. NECK: No JVD. RESPIRATORY: Vesicular breath sounds bilaterally. No wheezes, rales or rhonchi. CARDIOVASCULAR: Regular rate and rhythm, S1 and S2 only with diastolic murmur. No rubs or gallops. GASTROINTESTINAL: Soft, nontender, nondistended, positive bowel sounds. MUSCULOSKELETAL: Pulses present. Minimal bilateral lower extremity edema. NEUROLOGIC: Nonfocal, moves all limbs. PSYCHIATRIC: Alert and well oriented to time, place and person. Normal mood and affect. LABORATORY: Hemoglobin 16.7, WBC 6.2, platelet count is 182. Sodium 138, potassium 3.8, chloride 10 1, bicarbonate 27, anion gap 14, BUN 22, creatinine 1.2, glucose 118, calcium 9.5. IMAGING: VQ scan as reported in HPI, negative for PE. Chest x-ray did show postop midline sternotom y, simple cardioverter defibrillator, minimal cardiomegaly and mild chronic changes, no confluent pn eumonia or overt edema or significant pleural effusion. Brain CT as reported in HPI. Abdomen/pelvis /chest CT showed no definite acute post-traumatic sequela. Cervical spine CT showed no obvious fract ure of the postoperative cervical spine. PROCEDURES: None. CONSULTS: Cardiology CONDITION AT DISCHARGE: Stable and improved. DIET: Diabetic, heart healthy, low sodium. ACTIVITY: To resume as tolerated. Care goals to follow up with his primary care physician within 1 week of discharge for discharge lab s and post-admission checkup. Discharge time 55 minutes including chart review and documentation.
== END 2017-07-09 14:43 | disposition home or self-care (01) | DRG 282 ==
LOC: ERS 16:58 → 2NO 22:25
PROVIDERS: ADMIT Internal Medicine; ATTEND Internal Medicine
DX: I11.0 Hypertensive heart disease with heart failure (principal); I21.A1 Myocardial infarction type 2; E11.65 Type 2 diabetes mellitus with hyperglycemia; K74.60 Unspecified cirrhosis of liver; I50.33 Acute on chronic diastolic (congestive) heart failure; Z95.1 Presence of aortocoronary bypass graft; G47.33 Obstructive sleep apnea (adult) (pediatric); I25.10 Atherosclerotic heart disease of native coronary artery without angina pectoris; Z91.81 History of falling; I95.1 Orthostatic hypotension; Z95.810 Presence of automatic (implantable) cardiac defibrillator; Z95.5 Presence of coronary angioplasty implant and graft; E78.5 Hyperlipidemia, unspecified; Z88.1 Allergy status to other antibiotic agents; E03.9 Hypothyroidism, unspecified; I48.0 Paroxysmal atrial fibrillation; Z79.82 Long term (current) use of aspirin; Z79.4 Long term (current) use of insulin; E66.9 Obesity, unspecified; Z68.36 Body mass index [BMI] 36.0-36.9, adult; I35.0 Nonrheumatic aortic (valve) stenosis; R79.89 Other specified abnormal findings of blood chemistry; W18.39XA Other fall on same level, initial encounter
CPT/HCPCS: 36415; 36416; 70450; 71046; 71260; 72125; 74177; 78582; 80048; 80053; 81003; 82553; 84443; 84484; 85025; 85379; 87086; 93005; 93306; 93798; 94640; 96372; 96374; A4216; A9540; A9558; J1650; J1940; J2270; J7620

== ENCOUNTER 2017-09-04 17:34 | Inpatient (IN) | payer MEDICARE, BC ==
[2017-09-04 18:02] LABS: Bilirubin Negative (Negative); Blood, Urine Negative (Negative); Clarity CLEAR (Clear); Glucose, Urine (Dipstick) Negative (Negative); Leukocyte Negative (Negative); Nitrite Negative (Negative); Protein, Urine (Dipstick) Negative (Neg-Trace); Specific Gravity, Urine 1.018 (1.002-1.036); pH, Urine 6.5 (5.0-9.0)
--- NOTE | 2017-09-04 18:11 | RAD ---
CHEST TWO VIEW: 09/04/17 HISTORY: Syncope. COMPARISON: Chest radiograph 07/05/17. FINDINGS: The lungs are clear. No pneumothorax or effusion. The cardiac silhouette and mediastinal contours are within normal limits. No acute osseous abnormality. Dense calcifications transverse aorta. IMPRESSION: No acute intrathoracic abnormality. Mild cardiomegaly. POS: [facility]
--- NOTE | 2017-09-04 18:15 | CT ---
CT BRAIN WITHOUT CONTRAST: 09/04/17 HISTORY: Syncope. COMPARISON: CT brain 07/04/17. FINDINGS: No acute territorial infarct or hemorrhage. No midline shift or mass effect. Ventricular size and ext ra-axial CSF spaces are normal. Left lacunar hypodensities, similar. Mild microvascular ischemic changes. IMPRESSION: No acute intracranial abnormality. POS: [facility]
[2017-09-04 18:42] LABS: #Eosinphils 0.1 thou/uL (0.0-0.7); #Lymphocytes 1.1 thou/uL (1.20-3.40); #Monocytes 0.9 thou/uL (0.11-0.59); #Neutrophils 6.9 thou/uL (1.40-6.50); %Basophils 0.3 % (0.0-1.0); %Eosinophils 1.4 % (0.0-10.0); %Lymphocytes 11.8 % (21.0-51.0); %Monocytes 9.9 % (0.0-10.0); %Neutrophils 76.5 % (42.0-75.0); Hemoglobin 14.5 g/dL (14.0-18.0); Mean Corpuscular HGB CONC 33.2 g/dL (32.0-36.0); Mean Corpuscular Hemoglobin 31.9 pg (27.0-31.0); Mean Corpuscular Volume 95.8 fl (80.0-94.0); Mean Platelet Volume 7.3 fL (7.4-10.4); Platelet Count 202 thou/uL (130-400); RBC Distribution Width 13.5 % (11.5-14.5); Red Blood Cell (RBC) Count 4.55 mill/uL (4.70-6.10)
[2017-09-04 19:10] LABS: CKMB 1.1 ng/mL (0-6.6); Troponin I 0.093 ng/mL (< 0.028)
[2017-09-04 19:11] LABS: ALT (SGPT) 37 U/L (8-55); AST (SGOT) 36 U/L (5-34); Albumin 2.9 g/dL (3.4-4.8); Alkaline Phosphatase 136 U/L (40-150); Anion Gap 11 mmol/L (10-20); BUN (Urea Nitrogen) 18 mg/dL (8.4-25.7); Bilirubin, Total 1.3 mg/dL (0.2-1.2); CK (CPK) 30 U/L (30-200); Calc. Creatinine Clearance 0 mL/min (70-130); Calcium 8.8 mg/dL (7.8-10.44); Carbon Dioxide 26 mmol/L (23-31); Chloride 102 mmol/L (98-107); Estimated GFR-MDRD 83; Globulin 3.5 g/dL (2.4-3.5); Glucose 135 mg/dL (80-115); Lipase 138 U/L (8-78); Potassium 4.3 mmol/L (3.5-5.1); Protein, Total 6.4 g/dL (5.8-8.1); Sodium 135 mmol/L (136-145)
--- NOTE | 2017-09-04 19:18 | ULT ---
ULTRASOUND CAROTID DOPPLER STANDARD 09/04/17 HISTORY: Syncope. COMPARISON: None. FINDINGS: Real time boggs scale and color spectral analysis of the extracranial carotid and vertebral arteries. Moderate atherosclerotic plaque both carotid bulbs. Antegrade flow both vertebral arteries. No elevat ed peak systolic velocity to suggest a hemodynamically significant stenosis. Right ICA/CCA ratio is 1 .66. Left ICA/CCA ratio is 1. IMPRESSION: No hemodynamically significant stenosis. POS: [facility]
[2017-09-04] MEDS ORDERED: Ondansetron ODT 4 MG TAB ONE (21:07)
[2017-09-04] MEDS ORDERED: Fentanyl 100 MCG/2 ML VIAL ONE (21:07)
[2017-09-04 22:06] LABS: Troponin I 0.112 ng/mL (< 0.028)
[2017-09-04] MEDS ORDERED: Aspirin 325 MG TAB ONE (22:14)
[2017-09-05] MEDS ORDERED: Ondansetron HCl/PF 4 MG/2 ML Vial IVP PRN ×2 (00:40→01:08)
[2017-09-05] MEDS ORDERED: Ondansetron ODT 4 MG TAB SL PRN (00:40)
[2017-09-05] MEDS ORDERED: HumaLOG 300 UNITS/3 ML VIAL SC PRN (01:08)
[2017-09-05] MEDS ORDERED: Dextrose 50% Abboject 50 ML SYRINGE SLOW IVP PRN (01:08)
[2017-09-05] MEDS ORDERED: Dextrose 5% in Water 1,000 ML IV PRN (01:08)
[2017-09-05] MEDS ORDERED: Ondansetron ODT 4 MG TAB PO PRN (01:08)
[2017-09-05] MEDS ORDERED: hydrALAZINE 20 MG/ML VIAL SLOW IVP PRN (01:08)
[2017-09-05] MEDS ORDERED: cloNIDine 0.1 MG TAB PO PRN (01:08)
[2017-09-05 01:11] VITALS: BMI 35.3
[2017-09-05 05:23] LABS: Hemoglobin A1c 6.5 % (4.0-6.0)
[2017-09-05 05:29] LABS: ALT (SGPT) 33 U/L (8-55); AST (SGOT) 34 U/L (5-34); Albumin 2.7 g/dL (3.4-4.8); Alkaline Phosphatase 119 U/L (40-150); Anion Gap 10 mmol/L (10-20); BUN (Urea Nitrogen) 18 mg/dL (8.4-25.7); Bilirubin, Total 1.1 mg/dL (0.2-1.2); Calc. Creatinine Clearance 142 mL/min (70-130); Calcium 8.6 mg/dL (7.8-10.44); Carbon Dioxide 24 mmol/L (23-31); Chloride 105 mmol/L (98-107); Estimated GFR-MDRD Greater than 90; Globulin 3.3 g/dL (2.4-3.5); Glucose 108 mg/dL (80-115); Lipase 69 U/L (8-78); Magnesium 1.9 mg/dL (1.6-2.6); Sodium 135 mmol/L (136-145)
[2017-09-05] MEDS: Acetaminophen 500 MG TAB PO PRN ×3 (06:06→20:22)
[2017-09-05 06:11] LABS: Hemoglobin 13.7 g/dL (14.0-18.0); Mean Corpuscular HGB CONC 33.6 g/dL (32.0-36.0); Mean Corpuscular Hemoglobin 32.3 pg (27.0-31.0); Mean Corpuscular Volume 96.1 fl (80.0-94.0); Mean Platelet Volume 7.5 fL (7.4-10.4); Platelet Count 179 thou/uL (130-400); RBC Distribution Width 13.5 % (11.5-14.5); Red Blood Cell (RBC) Count 4.24 mill/uL (4.70-6.10); White Blood Cell (WBC) Count 9.1 thou/uL (4.8-10.8)
[2017-09-05 06:12] LABS: Band 4 % (5-11); Lymphocytes 12 % (21-51); MDiff Complete? YES; Macrocytosis SLIGHT = 6-15 cells (100X) (0-5/hpf); Monocytes 6 % (0-10); Neutrophil 77 % (42-75); PLT Morphology Comment Appears Adequate
[2017-09-05] MEDS: Famotidine 20 MG TAB PO SCH ×2 (08:31→20:22)
[2017-09-05] MEDS ORDERED: INSULIN DEGLUDEC 35 UNIT SC SCH (09:00)
[2017-09-05] MEDS ORDERED: Levothyroxine Sodium 88 MCG TAB PO SCH (09:00)
[2017-09-05] MEDS ORDERED: Furosemide 40 MG TAB PO SCH ×2 (09:00→10:21)
[2017-09-05] MEDS ORDERED: Non-Formulary Item 1 EACH (Zantac 75 MG) PO SCH (09:00)
--- NOTE | 2017-09-05 09:02 | HP ---
DATE OF ADMISSION: 09/05/2017 PRIMARY CARE PROVIDER: Dr. Moncho Rivera. CHIEF COMPLAINT: General weakness. HISTORY OF PRESENT ILLNESS: This is a 72-year-old male who presents to [facility] Emergency Department complaining of increasing generalized weakness over the last several days prior to admission. The patient states he had an apparent syncopal episode at home approximately 72 hours prior to this evaluation; however, he does state he did not actually black out completely and lose consciousness. The patient states he had a general sense of confusion after using the restroom. The patient states he had some dizziness in his neck and head and felt a sensation of being out of his body. The patient states he had a similar episode occurred when he was fixing a gate on his property in the last several days. The patient denied any tamiko loss of consciousness, chest pain, unilateral weakness, visual disturbance or direct trauma. The patient has multitude of complaints from headaches, malaise , lack of energy, depressed mood, abdominal discomfort, episodes of emesis and nausea and neck pain. The patient denies any specific change to his chronic medication regimen, recent travel history, documented fever. Family members with similar symptoms or recent surgical intervention. The patient states he has been compliant with his chronic medication regimen, but did not take any other specific home remedies for symptoms. The patient states he normally ambulates with the use of a rolling walker, but most mornings does not feel enough energy to get out of bed and perform regular activities at his home. The patient does states that he was recently treated for bronchitis over the last 10-14 days with oral antibiotics; however, is unsure of the name of the specific medication. In the emergency room, the patient underwent general evaluation including therapy with aspirin 325 mg, Zofran and fentanyl 50 mcg x1 dose. The patient was transferred to the observation unit for evaluation. PAST MEDICAL HISTORY: 1. Obstructive sleep apnea on nocturnal CPAP. 2. Chronic back pain. 3. Coronary artery disease. 4. Diastolic dysfunction with ejection fraction of 55%-60%. 5. Chronic elevated troponin I. 6. Hypothyroidism. 7. History of falls. 8. Deconditioning. 9. Diabetes mellitus type 2. 10. Hyperlipidemia. 11. Hypertension. 12. Paroxysmal atrial fibrillation. 13. Hepatic cirrhosis. 14. Polypharmacy. 15. Depression. PAST SURGICAL HISTORY: 1. Status post coronary artery bypass grafting x4 vessels. 2. Status post cardiac ablation. 3. Status post back surgery. 4. Status post right inguinal hernia repair. 5. Status post colonoscopy. 6. Status post abdominal aortic aneurysm repair. CURRENT MEDICATIONS: 1. Allopurinol 100 mg p.o. daily. 2. Amiodarone 100 mg p.o. q.a.m. 3. Enteric-coated aspirin 81 mg p.o. daily. 4. Lipitor 40 mg p.o. at bedtime. 5. Bupropion XL 150 mg p.o. daily. 6. Vitamin D3 2000 units p.o. daily. 7. Vitamin B12 2000 mcg p.o. daily. 8. Ferrous sulfate 65 mg p.o. daily. 9. Prozac 40 mg p.o. b.i.d. 10. Lasix 40 mg p.o. b.i.d. 11. Gabapentin 300 mg p.o. t.i.d. 12. Tresiba FlexTouch 35 units subcutaneously q.a.m. and 30 units subcutaneously at bedtime. 13. Levothyroxine 100 mcg p.o. daily. 14. Methocarbamol 750 mg p.o. b.i.d. 15. Metoprolol tartrate 12.5 mg p.o. b.i.d. 16. Potassium chloride 20 mEq p.o. q.a.m. 17. Tramadol 50 mg p.o. q.4 hours p.r.n. 18. Zantac 75 mg p.o. q.a.m. ALLERGIES: CIPROFLOXACIN. FAMILY HISTORY: Positive for coronary artery disease and diabetes. SOCIAL HISTORY: Quit tobacco use in 1997. No alcohol or illicit drug use. Retired truck terminal manager. Resides in [place], [place], with his . Ambulates with use of a rolling walker. REVIEW OF SYSTEMS: The following complete review of systems was negative, unless otherwise mentioned in the HPI or below: Constitutional: Weight loss or gain, ability to conduct usual activities. Skin: Rash, itching. Eyes: Double vision, pain. ENT/Mouth: Nose bleeding, neck stiffness, pain, tenderness. Cardiovascular: Palpitations, dyspnea on exertion, orthopnea. Respiratory: Shortness of breath, wheezing, cough, hemoptysis, fever or night sweats. Gastrointestinal: Poor appetite, abdominal pain, heartburn, nausea, vomiting, constipation, or diarrhea. Genitourinary: Urgency, frequency, dysuria, nocturia. Musculoskeletal: Pain, swelling. Neurologic/Psychiatric: Anxiety, depression. Allergy/Immunologic: Skin rash, bleeding tendency. Otherwise negative except as stated per HPI. PHYSICAL EXAMINATION: VITAL SIGNS: On admission, blood pressure 115/57, pulse 66, respiratory rate 18 , temperature 98.5 degrees Fahrenheit, O2 saturation 94% on room air. GENERAL APPEARANCE: This is a 72-year-old male, alert and oriented x3 in mild distress. HEENT: Pupils are equal, round, and reactive to light and accommodation. Extraocular muscles are intact. No scleral icterus. Mild conjunctival injection. Nares patent. OP is clear. Teeth in good repair. NECK: Supple, no cervical adenopathy, no thyromegaly, no carotid bruits, no JVD appreciated. Cervical spine with limited active and passive range of motion in terminal degrees of flexion and rotation. No meningeal signs. CHEST: Lungs are clear to auscultation bilaterally. CARDIOVASCULAR: S1, S2 with 1-2/6 systolic ejection murmur in the right upper sternal border. ABDOMEN: Obese, soft, nontender and nondistended. Bowel sounds are positive in all four quadrants. There is no hepatosplenomegaly, no abdominal bruits, no rebound or guarding appreciated. EXTREMITIES: Warm and dry with fair turgor. Mild edema to the mid shins bilaterally. Pulses palpable distally at the dorsalis pedis, posterior tibial, and popliteal arteries bilaterally. Capillary refill less than 2 seconds. NEUROLOGIC: Cranial nerves II-XII are grossly intact. No focal or lateralizing signs appreciated. The patient not observed ambulatory during this exam. PERTINENT LABORATORY DATA AND X-RAY FINDINGS: Sodium 135, potassium 4.3, chloride 102, CO2 26, BUN 18, creatinine 0.90, estimated GFR of 83, glucose 135 , calcium 8.8, total bilirubin 1.3, AST 36, ALT 37, alkaline phosphatase 136, total CK of 30. Troponin I ranged between 0.093-0.112. BNP 954 previously noted 1254 on 07/14/2016. Lipase 138. CBC showed white blood cell count of 9.0 , hemoglobin 14.5, hematocrit 44, MCV 96, platelet count 202 with 77% neutrophils. Urinalysis negative. Portable chest x-ray dated 09/04/2017 showed no acute cardiopulmonary process. CT of the brain without contrast dated 09/04/2016 showed no acute intracranial process. Carotid Doppler study dated 09/04/2017 showed no hemodynamically significant stenosis. EKG dated by my interpretation shows sinus mechanism with heart rates in the 70s. PVCs noted. Left axis deviation. No acute ST-T wave changes noted. ASSESSMENT AND PLAN: 1. Near syncope. The patient will be placed in observation status. We will continue telemetry monitoring. Carotid Doppler study unremarkable. Recent 2D transthoracic echocardiogram on 07/04/2017 showed preserved ejection fraction of 55%-60%. Diastolic dysfunction noted. We will check orthostatic vital signs q.4 hours x2. Continue serial glucose monitoring. Suspect multifactorial including component of polypharmacy. 2. Generalized weakness, multifactorial. Suspect component of polypharmacy. PT evaluation for functional assessment. General fall risk precautions. 3. Elevated lipase. Questionable subacute pancreatitis. Repeat lipase in the a.m. 4. Elevated troponin I. Suspect chronic demand ischemia. No current evidence to suggest acute coronary syndrome. Continue serial monitoring. Resume aspirin 81 mg daily. 5. Diabetes mellitus type 2, insulin requiring. ADA diet. Serial Accu-Cheks before meals and at bedtime. Check A1c level in the a.m. Continue Tresiba FlexTouch 35 units subcutaneously q.a.m. and 30 units subcutaneously at bedtime. 6. Hypertension. Resume home antihypertensive regimen and monitor clinical response. 7. Hypothyroidism. Continue levothyroxine 100 mcg p.o. q.a.m. Check TSH level in the a.m. 8. Prophylaxis. Sequential compression devices while in bed. Pepcid 20 mg p.o. b.i.d. PT evaluation for functional assessment. 9. Code status is FULL. Surrogate medical decision maker is patient's spouse. MTDD
[2017-09-05] MEDS: Amiodarone 200 MG TAB PO SCH (10:39)
[2017-09-05] MEDS: Allopurinol 100 MG TAB PO SCH (10:52)
[2017-09-05] MEDS: Ferrous Sulfate 325 MG TAB PO SCH (10:52)
[2017-09-05] MEDS: Cyanocobalamin (Vitamin B-12) 1,000 MCG TAB PO SCH (10:52)
[2017-09-05] MEDS: Bupropion 150 MG XL TAB PO SCH (10:52)
[2017-09-05] MEDS: FLUoxetine HCl 20 MG CAP PO SCH ×2 (10:53→20:20)
[2017-09-05] MEDS: Gabapentin 300 MG CAP PO SCH ×3 (10:53→20:22)
[2017-09-05] MEDS: Potassium Chloride 20 MEQ TAB PO SCH (10:54)
--- NOTE | 2017-09-05 13:26 | PDOC.EVN ---
Event Note - Event Note Event Note: Pt seen and examined.Chart and labs, meds reviewed. He had near syncopal event.no actual syncope.had episode of bronchitis and started on ABx by PCP ,now diarrhea,poor po intake and nausea. Looks pale and tired. CTA B?L. RRR. NSR ,atrial paced on tele. +ve for mild orthostatic changes but hypotensive in general. will hold lasix this am. Even though BNP high,appears euvolemic. carotid doppler WNL AICD interrogated-2 episodes of Vtach.first 09/01 lasting 25 seconds and then 2 second on 09/02. will get cardiology consulted. may need EP consult again.H/o a-fib,s/p ablation last year 07/05 in [place] and was taken off of eliquis cont amiodarone for now. recent ECHO last month has improved from last year w EF of 55%. check stool studies
--- NOTE | 2017-09-05 19:09 | CON ---
DATE OF CONSULTATION: 09/05/2017 DATE OF ADMISSION: 09/04/2017 INDICATION FOR CONSULTATION: A 72-year-old patient with a history of coronary disease, status post b ypass surgery, history of atrial fibrillation and AICD implant with episodes of nonsustained ventricu lar tachycardia, one episode of ventricular tachycardia which required pace termination. This is a v frantz unfortunate 72-year-old gentleman who has been followed by Dr. Bright for quite some time. He de leon s a long history of coronary artery disease and bypass surgery. He has had stent placements to the l eft anterior descending artery after bypass surgery and the stent was placed distal to the WHYTE inser tion to the left anterior descending artery. He has had ablations for atrial fibrillation. He has h ad problems with GI bleeding and he had an attempt at placement of a Watchman device which was unsucc essful apparently due to small size of the left atrial appendage. He has had episodes of nonsustaine d ventricular tachycardia and underwent AICD implant. He has a recent cardiac catheterization. I wilian rob in 2015 showed his saphenous vein grafts were patent and ejection fraction was 50%-55%. At kasey t time, he underwent the AICD implant. He does also have history of diastolic dysfunction. For the last several days or week, he has not been feeling well. He has been more weak. He thought he had s ome bronchitis. He was given antibiotics by the primary care physician and since that time, he has n ot felt much better, but continued to have fatigue and weakness. He presented to the hospital and th en was admitted. In the interrogation of his AICD, it did show one episode on 09/01/2017 where he de leon d an episode of ventricular tachycardia which was pace terminated. He has also had several small epi sodes of nonsustained ventricular tachycardia which were self-limiting. PAST MEDICAL HISTORY: Some of the coronary artery disease, diastolic heart failure, history of atria l fibrillation, status post ablation, history of diabetes, obesity. He has had hyperlipidemia. He h as obstructive sleep apnea, hypertension, and mild aortic valve stenosis and history of ventricular t achycardia. He has had back surgery. He underwent bypass surgery, he has had stent placement after bypass surgery. He has had an AICD implant. MEDICATIONS: At this time include; allopurinol, amiodarone, aspirin, atorvastatin, Wellbutrin, vitam ins, Pepcid. He is on Feosol 325 mg a day. He is on Prozac, furosemide 40 mg b.i.d., Neurontin, pot assium, Tylenol as needed. He is on insulin, hydralazine p.r.n., Zofran. SOCIAL HISTORY: The patient resides with family. No alcohol or tobacco abuse at this time. ALLERGIES: He is allergic to CIPRO. FAMILY HISTORY: Noncontributory. REVIEW OF SYSTEMS: He mainly complained of being weak recently. He had some nausea, did not have an y significant vomiting. He has not any other complaints, except he says there is some dark urine. O therwise, the 12-point review of systems is unremarkable except what was noted in history of present illness. PHYSICAL EXAMINATION: GENERAL: Reveals an elderly gentleman who is in no acute distress at this time. He says that he is fatigued. He does not appear to be uncomfortable. He has no shortness of breath or dyspnea. He den ies any chest pain at the present time. VITAL SIGNS: Blood pressure 122/57, heart rate in the 60s and shows a sinus rhythm. He is afebrile, respiratory rate 16. HEENT: Shows the head to be normocephalic and atraumatic. Carotid pulses are present. I did not he ar any significant bruits. CHEST: Clear to auscultation without rales, rhonchi or wheezing. He does have decreased inspiratory effort. CARDIOVASCULAR: Reveals a regular rate and rhythm at this time. He has a normal S1, S2. I cannot h ear an S3 nor an S4. He has a well healed surgical incision underneath the left infraclavicular area after an AICD implant. He has well-healed midline surgical incision after median sternotomy for his bypass surgery. ABDOMEN: Shows morbid obesity with positive bowel sounds. No significant masses or tenderness are n oted. EXTREMITIES: Showed no clubbing. He does have some mild mottling of the lower extremities. I canno t palpate pedal pulses. NEUROLOGIC: The patient does appear to be fatigued, but I cannot elicit any gross focal motor defici ts. SKIN: Warm and dry except his lower extremities appear to be slightly cool. LABORATORY AND X-RAY FINDINGS: Shows hemoglobin 13.7, his creatinine is 0.83. Hemoglobin A1c was 6. 5, blood sugar was 117. Cardiac enzymes: Troponin I is indeterminate at 0.039, increased up to 0.11 2 and then back down to 0.2-0.11. BNP is elevated at 953. IMPRESSION: 1. Congestive heart failure exacerbation. He has history of diastolic dysfunction. We will reasses s his medications and adjust as needed. 2. History of coronary artery disease. This appears to be relatively stable at this time. 3. History of AICD implant with a nonsustained ventricular tachycardia. He has had one episode that was pace terminated. 4. History of paroxysmal atrial fibrillation. He remains in sinus rhythm at this time. 5. History of anemia which is very stable. 6. History of diabetes, will be dealt by the primary care service. 7. Hypertension. This is stable at this time. If there has not been a recent echocardiogram performed, we will obtain an echocardiogram for better evaluation. It appears that now he has had some improvement after he has been given some rehydration . He appears to have been over diuresed. He was not eating and drinking, but was taking his Lasix o n a daily or twice daily basis. We would be more than happy to continue to follow the patient with frantz tidwell throughout his hospital stay.
[2017-09-05] MEDS: Atorvastatin Calcium 40 MG TAB PO SCH (20:22)
[2017-09-05] MEDS: Aspirin 81 mg Enteric Coated Tablet PO SCH (20:22)
[2017-09-05] MEDS ORDERED: Non-Formulary Item 1 EACH (Insulin Degludec [Tresiba Flextouch U-100] 30 UNIT) SQ SCH (21:00)
[2017-09-06] MEDS: Levothyroxine Sodium 100 MCG TAB PO SCH (06:06)
[2017-09-06] MEDS: FLUoxetine HCl 20 MG CAP PO SCH ×2 (08:37→21:00)
[2017-09-06] MEDS: Furosemide 40 MG TAB PO SCH ×2 (08:37→14:07)
[2017-09-06] MEDS: Potassium Chloride 20 MEQ TAB PO SCH (08:38)
[2017-09-06] MEDS: Gabapentin 300 MG CAP PO SCH ×3 (08:38→21:00)
[2017-09-06] MEDS: Ferrous Sulfate 325 MG TAB PO SCH (08:38)
[2017-09-06] MEDS: Amiodarone 200 MG TAB PO SCH (08:38)
[2017-09-06] MEDS: Bupropion 150 MG XL TAB PO SCH (08:39)
[2017-09-06] MEDS: Famotidine 20 MG TAB PO SCH ×2 (08:39→20:59)
[2017-09-06] MEDS: Cyanocobalamin (Vitamin B-12) 1,000 MCG TAB PO SCH (08:39)
[2017-09-06] MEDS: Allopurinol 100 MG TAB PO SCH (08:39)
--- NOTE | 2017-09-06 09:28 | PDOC.CTH ---
<Isa Ness - Last Filed: 09/06/17 09:26> Cardiology Progress Note - Subjective The pt seen and examined. No overnight events. No cardiac complains. He stated he feels better today. He walked to bathroom this AM with a walker without any difficulties. - Objective Vital Signs Temp Pulse Resp BP BP BP BP 09/06/17 07:43 98.2 F 68 20 114/59 L 09/06/17 07:24 98.1 F 72 20 09/06/17 06:42 110/58 L 117/58 L 114/56 L 09/06/17 05:50 98.1 F 72 20 117/58 L 09/05/17 23:35 98.4 F 67 20 109/57 L Pulse Ox 09/06/17 07:43 94 L 09/06/17 07:24 09/06/17 06:42 09/06/17 05:50 92 L 09/05/17 23:35 92 L Weight 268 lb 4.8 oz 09/05/17 09/06/17 09/07/17 06:59 06:59 06:59 Intake Total 1100 Output Total 1990 Balance -890 - Physical Examination General/Neuro: alert & oriented x3 Neck: no JVD present Lungs: CTA (diminished at bases) Heart: RRR Abdomen: soft Extremities: other: (No edema) - Telemetry Telemetry Rhythm: SR - Labs Result Diagrams: 09/05/17 04:37 09/05/17 04:37 Troponin/CKMB CK-MB (CK-2) 1.1 ng/mL (0-6.6) 09/04/17 18:34 Troponin I 0.110 ng/mL (< 0.028) H 09/05/17 00:27 - Assessment/Plan 1. Acute on Chronic diastolic HF - Stable with Lasix PO 40mg BID; resume Bblocker from this AM. Not on BRANDEN at this moment for hypotensive possible due to dehydration 2. AICD placement with hx of V tach x2 with paced terminated on 09/01/17 - cont. to monitor on tele 3. Afib with hx of ablation - remains in SR with Amiodarone and ASA 81mg daily. Cont. to montior 4. CAD with Hx of PCI in 2016 - stable with ASA 81mg daily and Statin; resume Metoprolol 25mg 1/2 tab BID; Not on BRANDEN at this moment for hypotensive possible due to dehydration 5. DM type 2 - managed by PCP 6. Hyperlipidemia - on Statin 7. HTN - stable 8. JORDAN - managed by PCP 9. Anemia - on Iron supplement; 10. Hypothyroidism - Managed by PCP 11. Obese - MAR reviewed Review of Systems - Review of Systems Constitutional: reports: no symptoms reported EENTM: reports: no symptoms reported Respiratory: reports: no symptoms reported Cardiac (ROS): reports: no symptoms reported ABD/GI: reports: no symptoms reported <Steve Garcia - Last Filed: 09/06/17 09:54> Cardiology Progress Note - Objective Vital Signs Temp Pulse Resp BP BP BP BP 09/06/17 07:43 98.2 F 68 20 114/59 L 09/06/17 07:24 98.1 F 72 20 09/06/17 06:42 110/58 L 117/58 L 114/56 L 09/06/17 05:50 98.1 F 72 20 117/58 L 09/05/17 23:35 98.4 F 67 20 109/57 L Pulse Ox 09/06/17 07:43 94 L 09/06/17 07:24 09/06/17 06:42 09/06/17 05:50 92 L 09/05/17 23:35 92 L Weight 268 lb 4.8 oz 09/05/17 09/06/17 09/07/17 06:59 06:59 06:59 Intake Total 1100 Output Total 1989 Balance -890 - Labs Result Diagrams: 09/05/17 04:37 09/05/17 04:37 Troponin/CKMB CK-MB (CK-2) 1.1 ng/mL (0-6.6) 09/04/17 18:34 Troponin I 0.110 ng/mL (< 0.028) H 09/05/17 00:27 - Assessment/Plan Pt. seen and eval. by me. He feels better but is still weak. He fell yesterday from the sofa while getting up to get his walker. He says thathe is unsteady and lost his balance. I agree with the A/P by the DISHING MACHINE OPERATOR.
[2017-09-06] MEDS ORDERED: Metoprolol Tartrate 25 MG TAB PO SCH (10:00)
[2017-09-06] MEDS: HumaLOG 300 UNITS/3 ML VIAL SC PRN ×2 (11:49→17:30)
--- NOTE | 2017-09-06 14:05 | PDOC.PN ---
- Subjective Encounter Start Date: 09/06/17 Encounter Start Time: 08:00 Subjective: no chest pain or palp -: feels better, still weak - Objective MAR Reviewed: Yes Vital Signs & Weight: Vital Signs (12 hours) Temp Pulse Resp BP BP BP Pulse Ox 09/06/17 11:24 98.0 F 69 16 103/58 L 92 L 09/06/17 07:43 98.2 F 68 20 114/59 L 94 L 09/06/17 07:24 98.1 F 72 20 09/06/17 06:42 110/58 L 117/58 L 114/56 L 09/06/17 05:50 98.1 F 72 20 117/58 L 92 L Weight Weight 268 lb 4.8 oz I&O: 09/05/17 09/06/17 09/07/17 06:59 06:59 06:59 Intake Total 1100 Output Total 1989 Balance -890 Result Diagrams: 09/05/17 04:37 09/05/17 04:37 Additional Labs: Accuchecks 09/06/17 09/06/17 09/05/17 11:29 06:07 20:32 POC Glucose 175 H 118 H 202 H 09/05/17 16:38 POC Glucose 143 H Phys Exam - Physical Examination HEENT: PERRLA, moist MMs Neck: no JVD, supple Respiratory: no wheezing, no rales Cardiovascular: RRR, no significant murmur Gastrointestinal: soft, non-tender, positive bowel sounds Musculoskeletal: no edema, pulses present Neurological: non-focal, moves all 4 limbs Psychiatric: normal affect, A&O x 3 Dx/Plan (1) Ventricular tachycardia, non-sustained Code(s): I47.2 - VENTRICULAR TACHYCARDIA Status: Acute (2) Near syncope Status: Acute (3) JORDAN (obstructive sleep apnea) Code(s): G47.33 - OBSTRUCTIVE SLEEP APNEA (ADULT) (PEDIATRIC) Status: Chronic (4) Hypothyroidism Code(s): E03.9 - HYPOTHYROIDISM, UNSPECIFIED Status: Chronic Qualifiers: Hypothyroidism type: unspecified Qualified Code(s): E03.9 - Hypothyroidism , unspecified (5) H/O cirrhosis Code(s): Z87.19 - PERSONAL HISTORY OF OTHER DISEASES OF THE DIGESTIVE SYSTEM Status: Chronic (6) CAD (coronary artery disease) Code(s): I25.10 - ATHSCL HEART DISEASE OF [place] CORONARY ARTERY W/O ANG PCTRS Status: Chronic Qualifiers: Coronary Disease-Associated Artery/Lesion type: bypass graft [place] vs. transplanted heart: [place] heart Associated angina: without angina Qualified Code(s): I25.810 - Atherosclerosis of coronary artery bypass graft(s) without angina pectoris (7) DM2 (diabetes mellitus, type 2) Status: Chronic Qualifiers: Diabetes mellitus mcfp insulin use: without mcfp use Diabetes mellitus complication status: with unspecified complications Qualified Code(s) : E11.8 - Type 2 diabetes mellitus with unspecified complications (8) HLD (hyperlipidemia) Code(s): E78.5 - HYPERLIPIDEMIA, UNSPECIFIED Status: Chronic Qualifiers: Hyperlipidemia type: unspecified Comment: Continue Statins (9) HTN (hypertension) Code(s): I10 - ESSENTIAL (PRIMARY) HYPERTENSION Status: Chronic Qualifiers: Hypertension type: essential hypertension (10) Paroxysmal atrial fibrillation Code(s): I48.0 - PAROXYSMAL ATRIAL FIBRILLATION Status: Chronic (11) Physical deconditioning Code(s): R53.81 - OTHER MALAISE Status: Acute - Plan is on amiodarone, asp, lipitor -: lasix 40mg bid -: BP around 90/60 -: low alb 2.7 likely due to liver disease -: PT eval, ?rehab/swing bed is unsteady on feet * . Review of Systems - Medications/Allergies Allergies/Adverse Reactions: Allergies Allergy/AdvReac Type Severity Reaction Status Date / Time ciprofloxacin [From Cipro] Allergy Severe Anaphylaxis Verified 09/05/17 00:54 ciprofloxacin HCl Allergy Unknown Verified 09/05/17 00:54 [From Cipro] Medications: Current Medications Acetaminophen (Tylenol) 1,000 mg PO Q6H PRN PRN Reason: Headache/Fever or Mild Pain Last Admin: 09/05/17 20:22 Dose: 1,000 mg Allopurinol (Zyloprim) 100 mg PO QAM [facility] Last Admin: 09/06/17 08:39 Dose: 100 mg Amiodarone HCl (Cordarone) 100 mg PO QAM [facility] Last Admin: 09/06/17 08:38 Dose: 100 mg Aspirin (Ecotrin) 81 mg PO QPM [facility] Last Admin: 09/05/17 20:22 Dose: 81 mg Atorvastatin Calcium (Lipitor) 40 mg PO HS [facility] Last Admin: 05/18/18 20:22 Dose: 40 mg Bupropion HCl (Wellbutrin Xl) 150 mg PO DAILY [facility] Last Admin: 09/06/17 08:39 Dose: 150 mg Cholecalciferol (Vitamin D3) 2,000 units PO DAILY [facility] Last Admin: 09/06/17 08:39 Dose: 2,000 units Clonidine (Catapres) 0.1 mg PO Q4H PRN PRN Reason: Systolic BP > 180 Cyanocobalamin (Vitamin B-12) 2,000 mcg PO DAILY [facility] Last Admin: 09/06/17 08:39 Dose: 2,000 mcg Dextrose/Water (Dextrose 50%) 25 gm SLOW IVP PRN PRN PRN Reason: Hypoglycemia Famotidine (Pepcid) 20 mg PO BID [facility] Last Admin: 09/06/17 08:39 Dose: 20 mg Ferrous Sulfate (Feosol) 325 mg PO DAILY [facility] Last Admin: 09/06/17 08:38 Dose: 325 mg Fluoxetine HCl (Prozac) 40 mg PO BID [facility] Last Admin: 09/06/17 08:37 Dose: 40 mg Furosemide (Lasix) 40 mg PO 0900,1400 [facility] Last Admin: 09/06/17 08:37 Dose: 40 mg Gabapentin (Neurontin) 300 mg PO TID [facility] Last Admin: 09/06/17 08:38 Dose: 300 mg Glucagon (Glucagon) 1 mg IM PRN PRN PRN Reason: Hypoglycemia Hydralazine HCl (Apresoline) 10 mg SLOW IVP Q4H PRN PRN Reason: Systolic BP > 180 Dextrose/Water (D5w) 1,000 mls @ 0 mls/hr IV .Q0M PRN; As Directed PRN Reason: Hypoglycemia Insulin Human Lispro (Humalog) 0 units SC .MODERATE SLIDING SC PRN PRN Reason: Moderate Correctional Scale Last Admin: 09/06/17 11:49 Dose: 2 units Insulin Human Lispro (Humalog) 0 units SC .BEDTIME SLIDING SC PRN PRN Reason: Bedtime Correctional Scale Levothyroxine Sodium (Synthroid) 100 mcg PO 0600 [facility] Last Admin: 09/06/17 06:06 Dose: 100 mcg Metoprolol Tartrate (Lopressor) 12.5 mg PO BID [facility] Ondansetron HCl (Zofran Odt) 4 mg PO Q6H PRN PRN Reason: Nausea/Vomiting Ondansetron HCl (Zofran) 4 mg IVP Q6H PRN PRN Reason: Nausea/Vomiting Non-Formulary Item 1 Each (Zantac 75 Mg ) 0 each PO QAM [facility] Potassium Chloride (K-Dur) 20 meq PO QAM [facility] Last Admin: 09/06/17 08:38 Dose: 20 meq
[2017-09-06] MEDS: Acetaminophen 500 MG TAB PO PRN (15:25)
[2017-09-06] MEDS: Metoprolol Tartrate 25 MG TAB PO SCH (21:00)
[2017-09-06] MEDS: Aspirin 81 mg Enteric Coated Tablet PO SCH (21:00)
[2017-09-06] MEDS: Atorvastatin Calcium 40 MG TAB PO SCH (21:00)
[2017-09-07] MEDS: Levothyroxine Sodium 100 MCG TAB PO SCH (05:28)
[2017-09-07 08:21] LABS: Anion Gap 8 mmol/L (10-20); BUN (Urea Nitrogen) 15 mg/dL (8.4-25.7); Calc. Creatinine Clearance 142 mL/min (70-130); Calcium 8.4 mg/dL (7.8-10.44); Carbon Dioxide 25 mmol/L (23-31); Chloride 105 mmol/L (98-107); Estimated GFR-MDRD 90; Glucose 143 mg/dL (80-115); Potassium 4.2 mmol/L (3.5-5.1); Sodium 134 mmol/L (136-145)
[2017-09-07] MEDS: Bupropion 150 MG XL TAB PO SCH (09:07)
[2017-09-07] MEDS: Allopurinol 100 MG TAB PO SCH (09:07)
[2017-09-07] MEDS: Cyanocobalamin (Vitamin B-12) 1,000 MCG TAB PO SCH (09:08)
[2017-09-07] MEDS: FLUoxetine HCl 20 MG CAP PO SCH ×2 (09:08→21:39)
[2017-09-07] MEDS: Metoprolol Tartrate 25 MG TAB PO SCH ×2 (09:08→21:39)
[2017-09-07] MEDS: Furosemide 40 MG TAB PO SCH (09:09)
[2017-09-07] MEDS: Potassium Chloride 20 MEQ TAB PO SCH (09:09)
[2017-09-07] MEDS: Amiodarone 200 MG TAB PO SCH (09:09)
[2017-09-07] MEDS: Ferrous Sulfate 325 MG TAB PO SCH (09:09)
[2017-09-07] MEDS: Famotidine 20 MG TAB PO SCH ×2 (09:09→21:39)
[2017-09-07] MEDS: Gabapentin 300 MG CAP PO SCH ×3 (09:09→21:39)
--- NOTE | 2017-09-07 10:48 | PDOC.PN ---
- Subjective Encounter Start Date: 09/07/17 Encounter Start Time: 09:00 Subjective: c/o feeling weak, no sob or chest pain -: has 1 loose stool this am - Objective MAR Reviewed: Yes Vital Signs & Weight: Vital Signs (12 hours) Temp Pulse Resp BP Pulse Ox 09/07/17 04:00 99.3 F 66 18 120/79 93 L Weight Weight 271 lb 6.4 oz I&O: 09/06/17 09/07/17 09/08/17 06:59 06:59 06:59 Intake Total 1100 680 Output Total 1989 800 Balance -890 -120 Result Diagrams: 09/05/17 04:37 09/07/17 07:38 Additional Labs: Accuchecks 09/06/17 09/06/17 09/06/17 20:15 16:49 11:29 POC Glucose 186 H 190 H 175 H Phys Exam - Physical Examination HEENT: PERRLA, moist MMs Neck: no JVD, supple Respiratory: no wheezing, no rales Cardiovascular: RRR, no significant murmur Gastrointestinal: soft, non-tender, positive bowel sounds Musculoskeletal: no edema, pulses present Neurological: non-focal, moves all 4 limbs Psychiatric: A&O x 3 Dx/Plan (1) Ventricular tachycardia, non-sustained Code(s): I47.2 - VENTRICULAR TACHYCARDIA Status: Acute (2) Near syncope Status: Resolved (3) JORDAN (obstructive sleep apnea) Code(s): G47.33 - OBSTRUCTIVE SLEEP APNEA (ADULT) (PEDIATRIC) Status: Chronic (4) Hypothyroidism Code(s): E03.9 - HYPOTHYROIDISM, UNSPECIFIED Status: Chronic Qualifiers: Hypothyroidism type: unspecified Qualified Code(s): E03.9 - Hypothyroidism , unspecified (5) H/O cirrhosis Code(s): Z87.19 - PERSONAL HISTORY OF OTHER DISEASES OF THE DIGESTIVE SYSTEM Status: Chronic (6) CAD (coronary artery disease) Code(s): I25.10 - ATHSCL HEART DISEASE OF [place] CORONARY ARTERY W/O ANG PCTRS Status: Chronic Qualifiers: Coronary Disease-Associated Artery/Lesion type: bypass graft [place] vs. transplanted heart: [place] heart Associated angina: without angina Qualified Code(s): I25.810 - Atherosclerosis of coronary artery bypass graft(s) without angina pectoris (7) DM2 (diabetes mellitus, type 2) Status: Chronic Qualifiers: Diabetes mellitus alf insulin use: without superintendent container terminal use Diabetes mellitus complication status: with unspecified complications Qualified Code(s) : E11.8 - Type 2 diabetes mellitus with unspecified complications (8) HLD (hyperlipidemia) Code(s): E78.5 - HYPERLIPIDEMIA, UNSPECIFIED Status: Chronic Qualifiers: Hyperlipidemia type: unspecified Comment: Continue Statins (9) HTN (hypertension) Code(s): I10 - ESSENTIAL (PRIMARY) HYPERTENSION Status: Chronic Qualifiers: Hypertension type: essential hypertension (10) Paroxysmal atrial fibrillation Code(s): I48.0 - PAROXYSMAL ATRIAL FIBRILLATION Status: Chronic (11) Physical deconditioning Code(s): R53.81 - OTHER MALAISE Status: Acute - Plan d/w , no further w/u for nonsustained vtach -: is deconditioned, needs rehab/swing bed -: PT/OT to amb as tolerated -: on amiodarone, asp, lipitor. -: change lasix to daily * . Review of Systems - Medications/Allergies Allergies/Adverse Reactions: Allergies Allergy/AdvReac Type Severity Reaction Status Date / Time ciprofloxacin [From Cipro] Allergy Severe Anaphylaxis Verified 09/05/17 00:54 ciprofloxacin HCl Allergy Unknown Verified 09/05/17 00:54 [From Cipro] Medications: Current Medications Acetaminophen (Tylenol) 1,000 mg PO Q6H PRN PRN Reason: Headache/Fever or Mild Pain Last Admin: 09/06/17 15:25 Dose: 1,000 mg Allopurinol (Zyloprim) 100 mg PO QAM [facility] Last Admin: 09/07/17 09:07 Dose: 100 mg Amiodarone HCl (Cordarone) 100 mg PO QAM [facility] Last Admin: 09/07/17 09:09 Dose: 100 mg Aspirin (Ecotrin) 81 mg PO QPM [facility] Last Admin: 09/06/17 21:00 Dose: 81 mg Atorvastatin Calcium (Lipitor) 40 mg PO HS [facility] Last Admin: 09/06/17 21:00 Dose: 40 mg Bupropion HCl (Wellbutrin Xl) 150 mg PO DAILY [facility] Last Admin: 09/07/17 09:07 Dose: 150 mg Cholecalciferol (Vitamin D3) 2,000 units PO DAILY [facility] Last Admin: 09/07/17 09:08 Dose: 2,000 units Clonidine (Catapres) 0.1 mg PO Q4H PRN PRN Reason: Systolic BP > 180 Cyanocobalamin (Vitamin B-12) 2,000 mcg PO DAILY [facility] Last Admin: 09/07/17 09:08 Dose: 2,000 mcg Dextrose/Water (Dextrose 50%) 25 gm SLOW IVP PRN PRN PRN Reason: Hypoglycemia Famotidine (Pepcid) 20 mg PO BID [facility] Last Admin: 09/07/17 09:09 Dose: 20 mg Ferrous Sulfate (Feosol) 325 mg PO DAILY [facility] Last Admin: 09/07/17 09:09 Dose: 325 mg Fluoxetine HCl (Prozac) 40 mg PO BID [facility] Last Admin: 09/07/17 09:08 Dose: 40 mg Furosemide (Lasix) 40 mg PO 0900,1400 [facility] Last Admin: 09/07/17 09:09 Dose: 40 mg Gabapentin (Neurontin) 300 mg PO TID [facility] Last Admin: 09/07/17 09:09 Dose: 300 mg Glucagon (Glucagon) 1 mg IM PRN PRN PRN Reason: Hypoglycemia Hydralazine HCl (Apresoline) 10 mg SLOW IVP Q4H PRN PRN Reason: Systolic BP > 180 Dextrose/Water (D5w) 1,000 mls @ 0 mls/hr IV .Q0M PRN; As Directed PRN Reason: Hypoglycemia Insulin Human Lispro (Humalog) 0 units SC .MODERATE SLIDING SC PRN PRN Reason: Moderate Correctional Scale Last Admin: 09/06/17 17:30 Dose: 2 units Insulin Human Lispro (Humalog) 0 units SC .BEDTIME SLIDING SC PRN PRN Reason: Bedtime Correctional Scale Levothyroxine Sodium (Synthroid) 100 mcg PO 0600 [facility] Last Admin: 09/06/17 06:06 Dose: 100 mcg Metoprolol Tartrate (Lopressor) 12.5 mg PO BID [facility] Last Admin: 09/07/17 09:08 Dose: 12.5 mg Ondansetron HCl (Zofran Odt) 4 mg PO Q6H PRN PRN Reason: Nausea/Vomiting Ondansetron HCl (Zofran) 4 mg IVP Q6H PRN PRN Reason: Nausea/Vomiting Non-Formulary Item 1 Each (Zantac 75 Mg ) 0 each PO QAM [facility] Potassium Chloride (K-Dur) 20 meq PO QAM [facility] Last Admin: 09/07/17 09:09 Dose: 20 meq
--- NOTE | 2017-09-07 13:21 | PDOC.CTH ---
<Isa Ness - Last Filed: 09/07/17 13:19> Cardiology Progress Note - Subjective The pt seen and examined. No overnight events. No cardiac complaints. He complains of weakness today. Hx of fall on 09/05/17 due to lost his balance when he got up from sofa to get his walker. - Objective Vital Signs Temp Pulse Resp BP Pulse Ox 09/07/17 07:55 99.0 F 66 15 97 09/07/17 04:00 99.3 F 66 18 120/79 93 L Weight 271 lb 6.4 oz 09/06/17 09/07/17 09/08/17 06:59 06:59 06:59 Intake Total 1100 680 Output Total 1989 800 Balance -890 -120 - Physical Examination General/Neuro: alert & oriented x3 Neck: no JVD present Lungs: CTA Heart: RRR Abdomen: soft Extremities: other: (No edema) - Telemetry Telemetry Rhythm: SR 63 - Labs Result Diagrams: 09/05/17 04:37 09/07/17 07:38 Troponin/CKMB CK-MB (CK-2) 1.1 ng/mL (0-6.6) 09/04/17 18:34 Troponin I 0.110 ng/mL (< 0.028) H 09/05/17 00:27 - Assessment/Plan 1. Acute on Chronic diastolic HF - Stable with Lasix PO 40mg dialy and Bblocker. Not on BRANDEN at this moment for hypotensive. His orthstatic BP is stable. 2. AICD placement with hx of V tach x2 with paced terminated on 09/01/17 - cont. to monitor on tele 3. Afib with hx of ablation - remains in SR with Amiodarone and ASA 81mg daily. Cont. to montior 4. CAD with Hx of PCI in 2016 - stable with ASA 81mg daily, Statin, and Metoprolol 25mg 1/2 tab BID; Not on BRANDEN at this moment for hypotensive possible due to dehydration 5. DM type 2 - managed by PCP 6. Hyperlipidemia - on Statin 7. HTN - stable 8. JORDAN - managed by PCP 9. Anemia - on Iron supplement; 10. Hypothyroidism - Managed by PCP 11. Obese - MAR reviewed Review of Systems - Review of Systems Constitutional: reports: see HPI EENTM: reports: no symptoms reported Respiratory: reports: no symptoms reported Cardiac (ROS): reports: no symptoms reported ABD/GI: reports: no symptoms reported : reports: no symptoms reported Musculoskeletal: reports: no symptoms reported <Steve Garcia - Last Filed: 09/07/17 21:55> Cardiology Progress Note - Objective Vital Signs Temp Pulse Pulse Resp BP BP BP 09/07/17 19:15 98.5 F 67 16 117/56 L 09/07/17 15:44 98.9 F 65 17 128/61 09/07/17 14:46 67 130/58 L 09/07/17 12:15 98.0 F 64 18 130/68 BP BP Pulse Ox 09/07/17 19:15 94 L 09/07/17 15:44 104/56 L 132/59 L 94 L 09/07/17 14:46 09/07/17 12:15 93 L Weight 271 lb 6.4 oz 09/06/17 09/07/17 09/08/17 06:59 06:59 06:59 Intake Total 1100 680 480 Output Total 1990 800 450 Balance -890 -120 30 - Labs Result Diagrams: 09/05/17 04:37 09/07/17 07:38 Troponin/CKMB CK-MB (CK-2) 1.1 ng/mL (0-6.6) 09/04/17 18:34 Troponin I 0.110 ng/mL (< 0.028) H 09/05/17 00:27 - Assessment/Plan Pt. seen and eval. by me. I agree with the A/P by the PRENATAL NURSE. We have discussed the plan.
[2017-09-07] MEDS: Acetaminophen 500 MG TAB PO PRN ×2 (15:52→21:40)
[2017-09-07] MEDS: Aspirin 81 mg Enteric Coated Tablet PO SCH (21:39)
[2017-09-07] MEDS: Atorvastatin Calcium 40 MG TAB PO SCH (21:39)
[2017-09-08] MEDS: Levothyroxine Sodium 100 MCG TAB PO SCH (05:45)
[2017-09-08 05:54] LABS: Anion Gap 10 mmol/L (10-20); BUN (Urea Nitrogen) 15 mg/dL (8.4-25.7); Calc. Creatinine Clearance 139 mL/min (70-130); Calcium 8.5 mg/dL (7.8-10.44); Carbon Dioxide 25 mmol/L (23-31); Chloride 104 mmol/L (98-107); Estimated GFR-MDRD 88; Glucose 162 mg/dL (80-115); Sodium 135 mmol/L (136-145)
[2017-09-08] MEDS ORDERED: Furosemide 40 MG TAB PO SCH (07:30)
--- NOTE | 2017-09-08 07:51 | PRG ---
DATE OF SERVICE: 09/08/2017 Mr. Subramanian feels weak and fatigued today. PHYSICAL EXAMINATION: VITAL SIGNS: His blood pressure supine was 100 systolic, it dropped when he stood up. LUNGS: Clear. CARDIAC: Normal S1 and S2. ABDOMEN: Soft, nontender. EXTREMITIES: No edema. ASSESSMENT: 1. History of diastolic congestive heart failure with normal ejection fraction. Echocardiogram show ed normal left ventricular function on this occasion with diastolic dysfunction. 2. Orthostatic hypotension. PLAN: 1. Stop furosemide for now. 2. Stop metoprolol. 3. Continue amiodarone, maintaining sinus rhythm. 4. Hopefully the patient can be released home soon. If necessary, the patient could be moved to a n on-monitored bed.
[2017-09-08] MEDS: Amiodarone 200 MG TAB PO SCH (09:19)
[2017-09-08] MEDS: Allopurinol 100 MG TAB PO SCH (09:19)
[2017-09-08] MEDS: Bupropion 150 MG XL TAB PO SCH (09:20)
[2017-09-08] MEDS: Cyanocobalamin (Vitamin B-12) 1,000 MCG TAB PO SCH (09:21)
[2017-09-08] MEDS: FLUoxetine HCl 20 MG CAP PO SCH ×2 (09:22→21:06)
[2017-09-08] MEDS: Famotidine 20 MG TAB PO SCH ×2 (09:22→21:06)
[2017-09-08] MEDS: Ferrous Sulfate 325 MG TAB PO SCH (09:22)
[2017-09-08] MEDS: Gabapentin 300 MG CAP PO SCH ×3 (09:23→21:06)
[2017-09-08] MEDS: Potassium Chloride 20 MEQ TAB PO SCH (09:23)
[2017-09-08] MEDS: Acetaminophen 500 MG TAB PO PRN ×2 (11:17→18:15)
[2017-09-08] MEDS: HumaLOG 300 UNITS/3 ML VIAL SC PRN (13:20)
--- NOTE | 2017-09-08 13:58 | PDOC.PN ---
- Subjective Encounter Start Date: 09/08/17 Encounter Start Time: 07:30 -: old records requested/rev Patient seen and examined for chf exacerbation. No new complaints. No overnight events - Objective MAR Reviewed: Yes Vital Signs & Weight: Vital Signs (12 hours) Temp Pulse Pulse Pulse Pulse Pulse Resp 09/08/17 11:15 98.6 F 70 18 09/08/17 08:08 65 68 72 67 09/08/17 07:31 98.9 F 67 17 09/08/17 05:45 97.9 F 66 17 BP BP BP BP BP BP BP 09/08/17 11:15 105/51 L 09/08/17 08:08 130/58 L 121/67 100/61 135/61 09/08/17 07:31 117/56 L 83/50 L 09/08/17 05:45 127/67 BP Pulse Ox Pulse Ox 09/08/17 11:15 93 L 09/08/17 08:08 92 L 09/08/17 07:31 105/53 L 93 L 09/08/17 05:45 96 Weight Weight 271 lb 3.2 oz I&O: 09/07/17 09/08/17 09/09/17 06:59 06:59 06:59 Intake Total 680 1000 Output Total 800 850 Balance -120 150 Result Diagrams: 09/05/17 04:37 09/08/17 04:34 Additional Labs: Accuchecks 09/08/17 09/08/17 09/07/17 11:53 06:27 21:34 POC Glucose 213 H 153 H 177 H 09/07/17 16:32 POC Glucose 154 H EKG Reviewed by me: Yes Phys Exam - Physical Examination Constitutional: NAD HEENT: PERRLA, moist MMs, sclera anicteric Neck: no JVD, supple Respiratory: no wheezing, no rales, no rhonchi Cardiovascular: RRR, no significant murmur, no rub Gastrointestinal: soft, non-tender, no distention, positive bowel sounds Musculoskeletal: no edema, pulses present Neurological: non-focal, normal sensation, moves all 4 limbs Psychiatric: normal affect, A&O x 3 Skin: no rash, normal turgor Dx/Plan (1) Acute on chronic diastolic (congestive) heart failure Code(s): I50.33 - ACUTE ON CHRONIC DIASTOLIC (CONGESTIVE) HEART FAILURE Status : Resolved (2) Physical deconditioning Code(s): R53.81 - OTHER MALAISE Status: Acute (3) Ventricular tachycardia, non-sustained Code(s): I47.2 - VENTRICULAR TACHYCARDIA Status: Acute (4) Anemia, iron deficiency Code(s): D50.9 - IRON DEFICIENCY ANEMIA, UNSPECIFIED Status: Chronic (5) CAD (coronary artery disease) Code(s): I25.10 - ATHSCL HEART DISEASE OF [place] CORONARY ARTERY W/O ANG PCTRS Status: Chronic Qualifiers: Coronary Disease-Associated Artery/Lesion type: bypass graft [place] vs. transplanted heart: [place] heart Associated angina: without angina Qualified Code(s): I25.810 - Atherosclerosis of coronary artery bypass graft(s) without angina pectoris (6) DM2 (diabetes mellitus, type 2) Status: Chronic Qualifiers: Diabetes mellitus skilled nursing insulin use: without buttermilk drier operator use Diabetes mellitus complication status: with unspecified complications Qualified Code(s) : E11.8 - Type 2 diabetes mellitus with unspecified complications (7) H/O cirrhosis Code(s): Z87.19 - PERSONAL HISTORY OF OTHER DISEASES OF THE DIGESTIVE SYSTEM Status: Chronic (8) HLD (hyperlipidemia) Code(s): E78.5 - HYPERLIPIDEMIA, UNSPECIFIED Status: Chronic Qualifiers: Hyperlipidemia type: unspecified Comment: Continue Statins (9) HTN (hypertension) Code(s): I10 - ESSENTIAL (PRIMARY) HYPERTENSION Status: Chronic Qualifiers: Hypertension type: essential hypertension (10) Hypothyroidism Code(s): E03.9 - HYPOTHYROIDISM, UNSPECIFIED Status: Chronic Qualifiers: Hypothyroidism type: unspecified Qualified Code(s): E03.9 - Hypothyroidism , unspecified (11) JORDAN (obstructive sleep apnea) Code(s): G47.33 - OBSTRUCTIVE SLEEP APNEA (ADULT) (PEDIATRIC) Status: Chronic (12) Paroxysmal atrial fibrillation Code(s): I48.0 - PAROXYSMAL ATRIAL FIBRILLATION Status: Chronic (13) Near syncope Status: Resolved (14) Orthostatic hypotension Code(s): I95.1 - ORTHOSTATIC HYPOTENSION Status: Acute - Plan cont current plan of care * agree with dc lasix and metoprolol * today will observe on tele floor * expecting discharge tomorrow * medication reviewed as below * symptomatic treatment. Review of Systems - Review of Systems Constitutional: weakness. negative: fever, chills, sweats, malaise, other ENT: negative: Ear Pain, Ear Discharge, Nose Pain, Nose Discharge, Nose Congestion, Mouth Pain, Mouth Swelling, Throat Pain, Throat Swelling, Other Respiratory: negative: Cough, Dry, Shortness of Breath, Hemoptysis, SOB with Excertion, Pleuritic Pain, Sputum, Wheezing Cardiovascular: light headedness. negative: chest pain, palpitations, orthopnea , paroxysmal nocturnal dyspnea, edema, other Gastrointestinal: negative: Nausea, Vomiting, Abdominal Pain, Diarrhea, Constipation, Melena, Hematochezia, Other Genitourinary: negative: Dysuria, Frequency, Incontinence, Hematuria, Retention , Other Musculoskeletal: negative: Neck Pain, Shoulder Pain, Arm Pain, Back Pain, Hand Pain, Leg Pain, Foot Pain, Other Skin: negative: Rash, Lesions, Homar, Bruising, Other - Medications/Allergies Allergies/Adverse Reactions: Allergies Allergy/AdvReac Type Severity Reaction Status Date / Time ciprofloxacin [From Cipro] Allergy Severe Anaphylaxis Verified 09/05/17 00:54 ciprofloxacin HCl Allergy Unknown Verified 09/05/17 00:54 [From Cipro] Medications: Current Medications Acetaminophen (Tylenol) 1,000 mg PO Q6H PRN PRN Reason: Headache/Fever or Mild Pain Last Admin: 09/08/17 11:17 Dose: 1,000 mg Allopurinol (Zyloprim) 100 mg PO QAM [facility] Last Admin: 09/08/17 09:19 Dose: 100 mg Amiodarone HCl (Cordarone) 100 mg PO QAM [facility] Last Admin: 09/08/17 09:19 Dose: 100 mg Aspirin (Ecotrin) 81 mg PO QPM [facility] Last Admin: 09/07/17 21:39 Dose: 81 mg Atorvastatin Calcium (Lipitor) 40 mg PO HS [facility] Last Admin: 09/07/17 21:39 Dose: 40 mg Bupropion HCl (Wellbutrin Xl) 150 mg PO DAILY [facility] Last Admin: 09/08/17 09:20 Dose: 150 mg Cholecalciferol (Vitamin D3) 2,000 units PO DAILY [facility] Last Admin: 09/08/17 09:21 Dose: 2,000 units Clonidine (Catapres) 0.1 mg PO Q4H PRN PRN Reason: Systolic BP > 180 Cyanocobalamin (Vitamin B-12) 2,000 mcg PO DAILY [facility] Last Admin: 09/08/17 09:21 Dose: 2,000 mcg Dextrose/Water (Dextrose 50%) 25 gm SLOW IVP PRN PRN PRN Reason: Hypoglycemia Famotidine (Pepcid) 20 mg PO BID [facility] Last Admin: 09/08/17 09:22 Dose: 20 mg Ferrous Sulfate (Feosol) 325 mg PO DAILY [facility] Last Admin: 09/08/17 09:22 Dose: 325 mg Fluoxetine HCl (Prozac) 40 mg PO BID [facility] Last Admin: 09/08/17 09:22 Dose: 40 mg Gabapentin (Neurontin) 300 mg PO TID [facility] Last Admin: 09/08/17 09:23 Dose: 300 mg Glucagon (Glucagon) 1 mg IM PRN PRN PRN Reason: Hypoglycemia Hydralazine HCl (Apresoline) 10 mg SLOW IVP Q4H PRN PRN Reason: Systolic BP > 180 Dextrose/Water (D5w) 1,000 mls @ 0 mls/hr IV .Q0M PRN; As Directed PRN Reason: Hypoglycemia Insulin Human Lispro (Humalog) 0 units SC .MODERATE SLIDING SC PRN PRN Reason: Moderate Correctional Scale Last Admin: 09/08/17 13:20 Dose: 4 units Insulin Human Lispro (Humalog) 0 units SC .BEDTIME SLIDING SC PRN PRN Reason: Bedtime Correctional Scale Levothyroxine Sodium (Synthroid) 100 mcg PO 0600 [facility] Last Admin: 09/08/17 05:45 Dose: 100 mcg Ondansetron HCl (Zofran Odt) 4 mg PO Q6H PRN PRN Reason: Nausea/Vomiting Ondansetron HCl (Zofran) 4 mg IVP Q6H PRN PRN Reason: Nausea/Vomiting Potassium Chloride (K-Dur) 20 meq PO QAM [facility] Last Admin: 09/08/17 09:23 Dose: 20 meq
[2017-09-08] MEDS: Atorvastatin Calcium 40 MG TAB PO SCH (21:06)
[2017-09-08] MEDS: Aspirin 81 mg Enteric Coated Tablet PO SCH (21:06)
[2017-09-09] MEDS: Levothyroxine Sodium 100 MCG TAB PO SCH (05:42)
[2017-09-09] MEDS: FLUoxetine HCl 20 MG CAP PO SCH ×2 (08:09→20:55)
[2017-09-09] MEDS: Potassium Chloride 20 MEQ TAB PO SCH (08:09)
[2017-09-09] MEDS: Cyanocobalamin (Vitamin B-12) 1,000 MCG TAB PO SCH (08:10)
[2017-09-09] MEDS: Amiodarone 200 MG TAB PO SCH (08:10)
[2017-09-09] MEDS: Bupropion 150 MG XL TAB PO SCH (08:10)
[2017-09-09] MEDS: Allopurinol 100 MG TAB PO SCH (08:10)
[2017-09-09] MEDS: Acetaminophen 500 MG TAB PO PRN ×3 (08:10→20:54)
[2017-09-09] MEDS: Ferrous Sulfate 325 MG TAB PO SCH (08:11)
[2017-09-09] MEDS: Gabapentin 300 MG CAP PO SCH ×3 (08:11→20:56)
[2017-09-09] MEDS: Famotidine 20 MG TAB PO SCH ×2 (08:11→20:55)
--- NOTE | 2017-09-09 10:07 | PDOC.PN ---
- Subjective Encounter Start Date: 09/09/17 Encounter Start Time: 07:00 Patient seen and examined for syncope, VT. He feels weak, he has difficulty performing routine activity. He wants to go to rehab. No overnight events - Objective MAR Reviewed: Yes Vital Signs & Weight: Vital Signs (12 hours) Temp Pulse Resp BP Pulse Ox 09/09/17 04:00 98.4 F 76 20 102/55 L 92 L Weight Weight 272 lb 3.2 oz I&O: 09/08/17 09/09/17 09/10/17 06:59 06:59 06:59 Intake Total 1000 910 Output Total 850 700 Balance 150 210 Result Diagrams: 09/05/17 04:37 09/08/17 04:34 Additional Labs: Accuchecks 09/09/17 09/08/17 09/08/17 06:06 20:31 17:02 POC Glucose 137 H 140 H 141 H 09/08/17 11:53 POC Glucose 213 H EKG Reviewed by me: Yes (nsr) Phys Exam - Physical Examination Constitutional: NAD HEENT: PERRLA, moist MMs, sclera anicteric Neck: no JVD, supple Respiratory: no wheezing, no rales, no rhonchi Cardiovascular: RRR, no significant murmur, no rub Gastrointestinal: soft, non-tender, no distention, positive bowel sounds Musculoskeletal: no edema, pulses present Neurological: non-focal, normal sensation, moves all 4 limbs Lymphatic: no nodes Psychiatric: normal affect, A&O x 3 Skin: no rash, normal turgor Dx/Plan (1) Acute on chronic diastolic (congestive) heart failure Code(s): I50.33 - ACUTE ON CHRONIC DIASTOLIC (CONGESTIVE) HEART FAILURE Status : Resolved (2) Physical deconditioning Code(s): R53.81 - OTHER MALAISE Status: Acute (3) Ventricular tachycardia, non-sustained Code(s): I47.2 - VENTRICULAR TACHYCARDIA Status: Acute (4) Anemia, iron deficiency Code(s): D50.9 - IRON DEFICIENCY ANEMIA, UNSPECIFIED Status: Chronic (5) CAD (coronary artery disease) Code(s): I25.10 - ATHSCL HEART DISEASE OF [place] CORONARY ARTERY W/O ANG PCTRS Status: Chronic Qualifiers: Coronary Disease-Associated Artery/Lesion type: bypass graft [place] vs. transplanted heart: [place] heart Associated angina: without angina Qualified Code(s): I25.810 - Atherosclerosis of coronary artery bypass graft(s) without angina pectoris (6) DM2 (diabetes mellitus, type 2) Status: Chronic Qualifiers: Diabetes mellitus [place] insulin use: without mcc use Diabetes mellitus complication status: with unspecified complications Qualified Code(s) : E11.8 - Type 2 diabetes mellitus with unspecified complications (7) H/O cirrhosis Code(s): Z87.19 - PERSONAL HISTORY OF OTHER DISEASES OF THE DIGESTIVE SYSTEM Status: Chronic (8) HLD (hyperlipidemia) Code(s): E78.5 - HYPERLIPIDEMIA, UNSPECIFIED Status: Chronic Qualifiers: Hyperlipidemia type: unspecified Comment: Continue Statins (9) HTN (hypertension) Code(s): I10 - ESSENTIAL (PRIMARY) HYPERTENSION Status: Chronic Qualifiers: Hypertension type: essential hypertension (10) Hypothyroidism Code(s): E03.9 - HYPOTHYROIDISM, UNSPECIFIED Status: Chronic Qualifiers: Hypothyroidism type: unspecified Qualified Code(s): E03.9 - Hypothyroidism , unspecified (11) JORDAN (obstructive sleep apnea) Code(s): G47.33 - OBSTRUCTIVE SLEEP APNEA (ADULT) (PEDIATRIC) Status: Chronic (12) Paroxysmal atrial fibrillation Code(s): I48.0 - PAROXYSMAL ATRIAL FIBRILLATION Status: Chronic (13) Near syncope Status: Resolved - Plan cont current plan of care, plan discussed w/ family, PT/OT, school social worker * will consult bottle caser for SNU placement * overall stable, Tele- NSR * BP is improved * I spoke with his who prefers [facility] on discharge * medication reviewed as below * symptomatic treatment. Review of Systems - Review of Systems Constitutional: weakness. negative: fever, chills, sweats, malaise, other Eyes: negative: Pain, Vision Change, Conjunctivae Inflammation, Eyelid Inflammation, Redness, Other ENT: negative: Ear Pain, Ear Discharge, Nose Pain, Nose Discharge, Nose Congestion, Mouth Pain, Mouth Swelling, Throat Pain, Throat Swelling, Other Respiratory: negative: Cough, Dry, Shortness of Breath, Hemoptysis, SOB with Excertion, Pleuritic Pain, Sputum, Wheezing Cardiovascular: negative: chest pain, palpitations, orthopnea, paroxysmal nocturnal dyspnea, edema, light headedness, other Gastrointestinal: negative: Nausea, Vomiting, Abdominal Pain, Diarrhea, Constipation, Melena, Hematochezia, Other Genitourinary: negative: Dysuria, Frequency, Incontinence, Hematuria, Retention , Other Musculoskeletal: negative: Neck Pain, Shoulder Pain, Arm Pain, Back Pain, Hand Pain, Leg Pain, Foot Pain, Other Skin: negative: Rash, Lesions, Homar, Bruising, Other - Medications/Allergies Allergies/Adverse Reactions: Allergies Allergy/AdvReac Type Severity Reaction Status Date / Time ciprofloxacin [From Cipro] Allergy Severe Anaphylaxis Verified 09/05/17 00:54 ciprofloxacin HCl Allergy Unknown Verified 09/05/17 00:54 [From Cipro] Medications: Current Medications Acetaminophen (Tylenol) 1,000 mg PO Q6H PRN PRN Reason: Headache/Fever or Mild Pain Last Admin: 09/09/17 08:10 Dose: 1,000 mg Allopurinol (Zyloprim) 100 mg PO QAM [facility] Last Admin: 09/09/17 08:10 Dose: 100 mg [facility]iodar[facility] ([facility]) [facility] Last Admin: 09/09/17 08:10 Dose: 100 mg Aspirin (Ecotrin) 81 mg PO QPM [facility] Last Admin: 09/08/17 21:06 Dose: 81 mg Atorvastatin Calcium (Lipitor) 40 mg PO HS [facility] Last Admin: 09/08/17 21:06 Dose: 40 mg Bupropion HCl (Wellbutrin Xl) 150 mg PO DAILY [facility] Last Admin: 09/09/17 08:10 Dose: 150 mg Cholecalciferol (Vitamin D3) 2,000 units PO DAILY [facility] Last Admin: 09/09/17 08:10 Dose: 2,000 units Clonidine (Catapres) 0.1 mg PO Q4H PRN PRN Reason: Systolic BP > 180 Cyanocobalamin (Vitamin B-12) 2,000 mcg PO DAILY [facility] Last Admin: 09/09/17 08:10 Dose: 2,000 mcg Dextrose/Water (Dextrose 50%) 25 gm SLOW IVP PRN PRN PRN Reason: Hypoglycemia Famotidine (Pepcid) 20 mg PO BID [facility] Last Admin: 09/09/17 08:11 Dose: 20 mg Ferrous Sulfate (Feosol) 325 mg PO DAILY [facility] Last Admin: 09/09/17 08:11 Dose: 325 mg Fluoxetine HCl (Prozac) 40 mg PO BID [facility] Last Admin: 09/09/17 08:09 Dose: 40 mg Gabapentin (Neurontin) 300 mg PO TID [facility] Last Admin: 09/09/17 08:11 Dose: 300 mg Glucagon (Glucagon) 1 mg IM PRN PRN PRN Reason: Hypoglycemia Hydralazine HCl (Apresoline) 10 mg SLOW IVP Q4H PRN PRN Reason: Systolic BP > 180 Dextrose/Water (D5w) 1,000 mls @ 0 mls/hr IV .Q0M PRN; As Directed PRN Reason: Hypoglycemia Insulin Human Lispro (Humalog) 0 units SC .MODERATE SLIDING SC PRN PRN Reason: Moderate Correctional Scale Last Admin: 09/08/17 13:20 Dose: 4 units Insulin Human Lispro (Humalog) 0 units SC .BEDTIME SLIDING SC PRN PRN Reason: Bedtime Correctional Scale Levothyroxine Sodium (Synthroid) 100 mcg PO 0600 [facility] Last Admin: 09/09/17 05:42 Dose: 100 mcg Ondansetron HCl (Zofran Odt) 4 mg PO Q6H PRN PRN Reason: Nausea/Vomiting Ondansetron HCl (Zofran) 4 mg IVP Q6H PRN PRN Reason: Nausea/Vomiting Potassium Chloride (K-Dur) 20 meq PO QAM [facility] Last Admin: 09/09/17 08:09 Dose: 20 meq
[2017-09-09] MEDS: HumaLOG 300 UNITS/3 ML VIAL SC PRN (11:46)
[2017-09-09] MEDS: Atorvastatin Calcium 40 MG TAB PO SCH (20:55)
[2017-09-09] MEDS: Aspirin 81 mg Enteric Coated Tablet PO SCH (20:55)
[2017-09-10] MEDS: Levothyroxine Sodium 100 MCG TAB PO SCH (05:49)
[2017-09-10 08:38] LABS: #Eosinphils 0.1 thou/uL (0.0-0.7); #Lymphocytes 0.7 thou/uL (1.20-3.40); #Neutrophils 9.5 thou/uL (1.40-6.50); %Basophils 0.3 % (0.0-1.0); %Eosinophils 0.5 % (0.0-10.0); %Lymphocytes 5.9 % (21.0-51.0); %Monocytes 9.1 % (0.0-10.0); %Neutrophils 84.3 % (42.0-75.0); Hemoglobin 13.8 g/dL (14.0-18.0); Mean Corpuscular HGB CONC 33.6 g/dL (32.0-36.0); Mean Corpuscular Hemoglobin 32.4 pg (27.0-31.0); Mean Corpuscular Volume 96.2 fl (80.0-94.0); Mean Platelet Volume 7.2 fL (7.4-10.4); Platelet Count 177 thou/uL (130-400); RBC Distribution Width 13.3 % (11.5-14.5); Red Blood Cell (RBC) Count 4.25 mill/uL (4.70-6.10); White Blood Cell (WBC) Count 11.3 thou/uL (4.8-10.8)
[2017-09-10 08:52] LABS: Anion Gap 12 mmol/L (10-20); BUN (Urea Nitrogen) 14 mg/dL (8.4-25.7); Calc. Creatinine Clearance 143 mL/min (70-130); Calcium 8.5 mg/dL (7.8-10.44); Carbon Dioxide 23 mmol/L (23-31); Chloride 103 mmol/L (98-107); Estimated GFR-MDRD 90; Glucose 165 mg/dL (80-115); Magnesium 1.9 mg/dL (1.6-2.6); Potassium 4.1 mmol/L (3.5-5.1); Sodium 134 mmol/L (136-145)
[2017-09-10] MEDS: Bupropion 150 MG XL TAB PO SCH (09:03)
[2017-09-10] MEDS: Cyanocobalamin (Vitamin B-12) 1,000 MCG TAB PO SCH (09:03)
[2017-09-10] MEDS: Allopurinol 100 MG TAB PO SCH (09:03)
[2017-09-10] MEDS: FLUoxetine HCl 20 MG CAP PO SCH ×2 (09:03→20:54)
[2017-09-10] MEDS: Amiodarone 200 MG TAB PO SCH (09:03)
[2017-09-10] MEDS: Potassium Chloride 20 MEQ TAB PO SCH (09:04)
[2017-09-10] MEDS: Gabapentin 300 MG CAP PO SCH ×3 (09:04→20:55)
[2017-09-10] MEDS: Famotidine 20 MG TAB PO SCH ×2 (09:04→20:54)
[2017-09-10] MEDS: Ferrous Sulfate 325 MG TAB PO SCH (09:05)
--- NOTE | 2017-09-10 10:02 | PDOC.PN ---
- Subjective Encounter Start Date: 09/10/17 Encounter Start Time: 08:20 Patient seen and examined for syncope. No new complaints. No overnight events - Objective MAR Reviewed: Yes Vital Signs & Weight: Vital Signs (12 hours) Temp Pulse Resp BP BP Pulse Ox 09/10/17 07:43 98.1 F 79 18 101/65 90 L 09/10/17 04:32 98.5 F 80 22 H 103/66 91 L 09/10/17 00:00 99.5 F 98 22 H 107/64 91 L Weight Weight 272 lb 3.2 oz I&O: 09/09/17 09/10/17 09/11/17 06:59 06:59 06:59 Intake Total 910 720 Output Total 700 600 Balance 210 120 Result Diagrams: 09/10/17 07:56 09/10/17 07:56 Additional Labs: Accuchecks 09/10/17 09/09/17 09/09/17 04:25 20:31 16:36 POC Glucose 165 H 167 H 180 H 09/09/17 11:44 POC Glucose 166 H Phys Exam - Physical Examination Constitutional: NAD HEENT: PERRLA, moist MMs, sclera anicteric Neck: no JVD, supple Respiratory: no wheezing, no rales, no rhonchi Cardiovascular: RRR, no significant murmur, no rub Gastrointestinal: soft, non-tender, no distention, positive bowel sounds Musculoskeletal: no edema, pulses present Neurological: non-focal, normal sensation, moves all 4 limbs Lymphatic: no nodes Psychiatric: normal affect, A&O x 3 Skin: no rash, normal turgor Dx/Plan (1) Acute on chronic diastolic (congestive) heart failure Code(s): I50.33 - ACUTE ON CHRONIC DIASTOLIC (CONGESTIVE) HEART FAILURE Status : Resolved (2) Physical deconditioning Code(s): R53.81 - OTHER MALAISE Status: Acute (3) Ventricular tachycardia, non-sustained Code(s): I47.2 - VENTRICULAR TACHYCARDIA Status: Acute (4) Anemia, iron deficiency Code(s): D50.9 - IRON DEFICIENCY ANEMIA, UNSPECIFIED Status: Chronic (5) CAD (coronary artery disease) Code(s): I25.10 - ATHSCL HEART DISEASE OF [place] CORONARY ARTERY W/O ANG PCTRS Status: Chronic Qualifiers: Coronary Disease-Associated Artery/Lesion type: bypass graft [place] vs. transplanted heart: [place] heart Associated angina: without angina Qualified Code(s): I25.810 - Atherosclerosis of coronary artery bypass graft(s) without angina pectoris (6) DM2 (diabetes mellitus, type 2) Status: Chronic Qualifiers: Diabetes mellitus usp insulin use: without usp use Diabetes mellitus complication status: with unspecified complications Qualified Code(s) : E11.8 - Type 2 diabetes mellitus with unspecified complications (7) H/O cirrhosis Code(s): Z87.19 - PERSONAL HISTORY OF OTHER DISEASES OF THE DIGESTIVE SYSTEM Status: Chronic (8) HLD (hyperlipidemia) Code(s): E78.5 - HYPERLIPIDEMIA, UNSPECIFIED Status: Chronic Qualifiers: Hyperlipidemia type: unspecified Comment: Continue Statins (9) HTN (hypertension) Code(s): I10 - ESSENTIAL (PRIMARY) HYPERTENSION Status: Chronic Qualifiers: Hypertension type: essential hypertension (10) Hypothyroidism Code(s): E03.9 - HYPOTHYROIDISM, UNSPECIFIED Status: Chronic Qualifiers: Hypothyroidism type: unspecified Qualified Code(s): E03.9 - Hypothyroidism , unspecified (11) JORDAN (obstructive sleep apnea) Code(s): G47.33 - OBSTRUCTIVE SLEEP APNEA (ADULT) (PEDIATRIC) Status: Chronic (12) Paroxysmal atrial fibrillation Code(s): I48.0 - PAROXYSMAL ATRIAL FIBRILLATION Status: Chronic (13) Near syncope Status: Resolved - Plan cont current plan of care, PT/OT, social service assistant * medication reviewed as below * symptomatic treatment * await placement * overall stable, now BP stable. Review of Systems - Review of Systems Eyes: negative: Pain, Vision Change, Conjunctivae Inflammation, Eyelid Inflammation, Redness, Other ENT: negative: Ear Pain, Ear Discharge, Nose Pain, Nose Discharge, Nose Congestion, Mouth Pain, Mouth Swelling, Throat Pain, Throat Swelling, Other Respiratory: negative: Cough, Dry, Shortness of Breath, Hemoptysis, SOB with Excertion, Pleuritic Pain, Sputum, Wheezing Cardiovascular: negative: chest pain, palpitations, orthopnea, paroxysmal nocturnal dyspnea, edema, light headedness, other Gastrointestinal: negative: Nausea, Vomiting, Abdominal Pain, Diarrhea, Constipation, Melena, Hematochezia, Other Genitourinary: negative: Dysuria, Frequency, Incontinence, Hematuria, Retention , Other Musculoskeletal: negative: Neck Pain, Shoulder Pain, Arm Pain, Back Pain, Hand Pain, Leg Pain, Foot Pain, Other Skin: negative: Rash, Lesions, Homar, Bruising, Other - Medications/Allergies Allergies/Adverse Reactions: Allergies Allergy/AdvReac Type Severity Reaction Status Date / Time ciprofloxacin [From Cipro] Allergy Severe Anaphylaxis Verified 09/05/17 00:54 ciprofloxacin HCl Allergy Unknown Verified 09/05/17 00:54 [From Cipro] Medications: Current Medications Acetaminophen (Tylenol) 1,000 mg PO Q6H PRN PRN Reason: Headache/Fever or Mild Pain Last Admin: 09/09/17 15:41 Dose: 1,000 mg Allopurinol (Zyloprim) 100 mg PO QAM [facility] Last Admin: 09/10/17 09:03 Dose: 100 mg Amiodarone HCl (Cordarone) 100 mg PO QAM [facility] Last Admin: 09/10/17 09:03 Dose: 100 mg Aspirin (Ecotrin) 81 mg PO QPM [facility] Last Admin: 09/09/17 20:55 Dose: 81 mg Atorvastatin Calcium (Lipitor) 40 mg PO HS [facility] Last Admin: 09/09/17 20:55 Dose: 40 mg Bupropion HCl (Wellbutrin Xl) 150 mg PO DAILY [facility] Last Admin: 09/10/17 09:03 Dose: 150 mg Cholecalciferol (Vitamin D3) 2,000 units PO DAILY [facility] Last Admin: 09/10/17 09:04 Dose: 2,000 units Clonidine (Catapres) 0.1 mg PO Q4H PRN PRN Reason: Systolic BP > 180 Cyanocobalamin (Vitamin B-12) 2,000 mcg PO DAILY [facility] Last Admin: 09/10/17 09:03 Dose: 2,000 mcg Dextrose/Water (Dextrose 50%) 25 gm SLOW IVP PRN PRN PRN Reason: Hypoglycemia Famotidine (Pepcid) 20 mg PO BID [facility] Last Admin: 09/10/17 09:04 Dose: 20 mg Ferrous Sulfate (Feosol) 325 mg PO DAILY [facility] Last Admin: 09/10/17 09:05 Dose: 325 mg Fluoxetine HCl (Prozac) 40 mg PO BID [facility] Last Admin: 09/10/17 09:03 Dose: 40 mg Gabapentin (Neurontin) 300 mg PO TID [facility] Last Admin: 09/10/17 09:04 Dose: 300 mg Glucagon (Glucagon) 1 mg IM PRN PRN PRN Reason: Hypoglycemia Hydralazine HCl (Apresoline) 10 mg SLOW IVP Q4H PRN PRN Reason: Systolic BP > 180 Dextrose/Water (D5w) 1,000 mls @ 0 mls/hr IV .Q0M PRN; As Directed PRN Reason: Hypoglycemia Insulin Human Lispro (Humalog) 0 units SC .MODERATE SLIDING SC PRN PRN Reason: Moderate Correctional Scale Last Admin: 09/09/17 11:46 Dose: 2 units Insulin Human Lispro (Humalog) 0 units SC .BEDTIME SLIDING SC PRN PRN Reason: Bedtime Correctional Scale Levothyroxine Sodium (Synthroid) 100 mcg PO 0600 [facility] Last Admin: 09/10/17 05:49 Dose: 100 mcg Ondansetron HCl (Zofran Odt) 4 mg PO Q6H PRN PRN Reason: Nausea/Vomiting Last Admin: 09/09/17 20:54 Dose: 4 mg Ondansetron HCl (Zofran) 4 mg IVP Q6H PRN PRN Reason: Nausea/Vomiting Potassium Chloride (K-Dur) 20 meq PO QAM [facility] Last Admin: 09/10/17 09:04 Dose: 20 meq
[2017-09-10] MEDS: HumaLOG 300 UNITS/3 ML VIAL SC PRN (12:22)
[2017-09-10] MEDS ORDERED: Sodium Chloride 0.9% 1,000 ML IV SCH (13:00)
[2017-09-10] MEDS ORDERED: Amoxicillin/Potassium Clav 875 MG TAB PO SCH ×2 (13:30→21:00)
[2017-09-10] MEDS: Aspirin 81 mg Enteric Coated Tablet PO SCH (20:54)
[2017-09-10] MEDS: Atorvastatin Calcium 40 MG TAB PO SCH (20:54)
[2017-09-10] MEDS: Amoxicillin/Potassium Clav 875 MG TAB PO SCH (20:54)
[2017-09-10] MEDS: Acetaminophen 500 MG TAB PO PRN (20:54)
--- NOTE | 2017-09-11 00:40 | PDOC.EVN ---
Event Note - Event Note Event Note: RN called. Patient met criteria for Sepsis. Also requiring 2 liter O2 Will get CXR, Blood culture. 1 dose Ceftriaxone.
[2017-09-11] MEDS ORDERED: cefTRIAXone\\ROCEPHIN 1 GM in Sodium Chloride 0.9% 100 ML IVPB SCH (01:00)
[2017-09-11] MEDS: Levothyroxine Sodium 100 MCG TAB PO SCH (05:43)
[2017-09-11 08:09] LABS: #Eosinphils 0.1 thou/uL (0.0-0.7); #Lymphocytes 0.6 thou/uL (1.20-3.40); #Monocytes 0.8 thou/uL (0.11-0.59); #Neutrophils 7.7 thou/uL (1.40-6.50); %Basophils 0.5 % (0.0-1.0); %Eosinophils 0.9 % (0.0-10.0); %Monocytes 8.8 % (0.0-10.0); %Neutrophils 83.9 % (42.0-75.0); Hemoglobin 13.1 g/dL (14.0-18.0); Mean Corpuscular HGB CONC 33.6 g/dL (32.0-36.0); Mean Corpuscular Hemoglobin 32.7 pg (27.0-31.0); Mean Corpuscular Volume 97.3 fl (80.0-94.0); Mean Platelet Volume 7.5 fL (7.4-10.4); Platelet Count 174 thou/uL (130-400); RBC Distribution Width 13.4 % (11.5-14.5); Red Blood Cell (RBC) Count 4.02 mill/uL (4.70-6.10); White Blood Cell (WBC) Count 9.1 thou/uL (4.8-10.8)
[2017-09-11 08:16] LABS: Lactic Acid 1.3 mmol/L (0.5-2.2)
[2017-09-11 08:20] LABS: Anion Gap 10 mmol/L (10-20); BUN (Urea Nitrogen) 14 mg/dL (8.4-25.7); Calc. Creatinine Clearance 146 mL/min (70-130); Calcium 8.3 mg/dL (7.8-10.44); Carbon Dioxide 24 mmol/L (23-31); Chloride 104 mmol/L (98-107); Estimated GFR-MDRD Greater than 90; Glucose 153 mg/dL (80-115); Potassium 3.9 mmol/L (3.5-5.1); Sodium 134 mmol/L (136-145)
--- NOTE | 2017-09-11 09:08 | RAD ---
AP VIEW CHEST: Date: 09/11/17 INDICATION: Chest pain. COMPARISON: Prior exam dated 09/04/17. FINDINGS: There is cardiomegaly and mild pulmonary vascular congestion. No pleural effusion or pneumothorax is evident. There is dual lead AICD overlying the chest wall. AICD is stable involving the lower cervica l spine. IMPRESSION: Cardiomegaly with mild pulmonary vascular congestion. POS: NESTOR[facility]
[2017-09-11] MEDS: Allopurinol 100 MG TAB PO SCH (10:05)
[2017-09-11] MEDS: Amiodarone 200 MG TAB PO SCH (10:06)
[2017-09-11] MEDS: Amoxicillin/Potassium Clav 875 MG TAB PO SCH (10:07)
[2017-09-11] MEDS: Bupropion 150 MG XL TAB PO SCH (10:07)
[2017-09-11] MEDS: Famotidine 20 MG TAB PO SCH (10:08)
[2017-09-11] MEDS: Cyanocobalamin (Vitamin B-12) 1,000 MCG TAB PO SCH (10:08)
[2017-09-11] MEDS: Gabapentin 300 MG CAP PO SCH ×2 (10:08→14:54)
[2017-09-11] MEDS: Ferrous Sulfate 325 MG TAB PO SCH (10:08)
[2017-09-11] MEDS: FLUoxetine HCl 20 MG CAP PO SCH (10:08)
[2017-09-11] MEDS: Potassium Chloride 20 MEQ TAB PO SCH (10:09)
[2017-09-11] MEDS: Acetaminophen 500 MG TAB PO PRN (10:14)
--- NOTE | 2017-09-11 10:20 | PDOC.PN ---
- Subjective Encounter Start Date: 09/11/17 Encounter Start Time: 08:50 pt does not feel good today, he is weak, has diffuse body pain, feels dizziness , had low BP yesterday and last night, has low grade fever, rocephin was added last night Patient seen and examined for dizziness. - Objective MAR Reviewed: Yes Vital Signs & Weight: Vital Signs (12 hours) Temp Pulse Resp BP Pulse Ox 09/11/17 07:23 98.2 F 82 16 102/61 94 L 09/11/17 04:18 97.7 F 86 24 H 106/68 96 09/11/17 00:00 98.2 F 77 22 H 89/56 L 94 L Weight Weight 272 lb 3.2 oz I&O: 09/10/17 09/11/17 09/12/17 06:59 06:59 06:59 Intake Total 720 1172 Output Total 600 400 Balance 120 772 Result Diagrams: 09/11/17 07:31 09/11/17 07:31 Additional Labs: Accuchecks 09/11/17 09/10/17 09/10/17 04:49 20:46 16:39 POC Glucose 133 H 156 H 135 H 09/10/17 11:28 POC Glucose 181 H Radiology Reviewed by me: Yes (chest xray- no acute) Phys Exam - Physical Examination Constitutional: NAD HEENT: PERRLA, moist MMs, sclera anicteric Neck: no JVD, supple Respiratory: no wheezing, no rales, no rhonchi Cardiovascular: RRR, no significant murmur, no rub Gastrointestinal: soft, non-tender, no distention, positive bowel sounds Musculoskeletal: no edema, pulses present Neurological: non-focal, normal sensation Lymphatic: no nodes Psychiatric: normal affect Skin: no rash, normal turgor Dx/Plan (1) Acute on chronic diastolic (congestive) heart failure Code(s): I50.33 - ACUTE ON CHRONIC DIASTOLIC (CONGESTIVE) HEART FAILURE Status : Resolved Comment: euvolemic (2) Physical deconditioning Code(s): R53.81 - OTHER MALAISE Status: Acute (3) Ventricular tachycardia, non-sustained Code(s): I47.2 - VENTRICULAR TACHYCARDIA Status: Resolved (4) Anemia, iron deficiency Code(s): D50.9 - IRON DEFICIENCY ANEMIA, UNSPECIFIED Status: Chronic (5) CAD (coronary artery disease) Code(s): I25.10 - ATHSCL HEART DISEASE OF [place] CORONARY ARTERY W/O ANG PCTRS Status: Chronic Qualifiers: Coronary Disease-Associated Artery/Lesion type: bypass graft [place] vs. transplanted heart: [place] heart Associated angina: without angina Qualified Code(s): I25.810 - Atherosclerosis of coronary artery bypass graft(s) without angina pectoris (6) DM2 (diabetes mellitus, type 2) Status: Chronic Qualifiers: Diabetes mellitus usp insulin use: without usp use Diabetes mellitus complication status: with unspecified complications Qualified Code(s) : E11.8 - Type 2 diabetes mellitus with unspecified complications (7) H/O cirrhosis Code(s): Z87.19 - PERSONAL HISTORY OF OTHER DISEASES OF THE DIGESTIVE SYSTEM Status: Chronic (8) HLD (hyperlipidemia) Code(s): E78.5 - HYPERLIPIDEMIA, UNSPECIFIED Status: Chronic Qualifiers: Hyperlipidemia type: unspecified Comment: Continue Statins (9) HTN (hypertension) Code(s): I10 - ESSENTIAL (PRIMARY) HYPERTENSION Status: Chronic Qualifiers: Hypertension type: essential hypertension (10) Hypothyroidism Code(s): E03.9 - HYPOTHYROIDISM, UNSPECIFIED Status: Chronic Qualifiers: Hypothyroidism type: unspecified Qualified Code(s): E03.9 - Hypothyroidism , unspecified (11) JORDAN (obstructive sleep apnea) Code(s): G47.33 - OBSTRUCTIVE SLEEP APNEA (ADULT) (PEDIATRIC) Status: Chronic (12) Paroxysmal atrial fibrillation Code(s): I48.0 - PAROXYSMAL ATRIAL FIBRILLATION Status: Chronic (13) Near syncope Status: Resolved - Plan cont current plan of care, continue antibiotics, PT/OT, social worker * now will need to resume lasix at low dose on discharge and also low dose of metoprolol * i have added augmentin yesterday for pseudomonas in stool and rocephin added * his BP also remains on lower side * he is at risk for readmission * medication reviewed as below * symptomatic treatment * will monitor. Review of Systems - Review of Systems Constitutional: weakness, malaise. negative: fever, chills, sweats, other ENT: negative: Ear Pain, Ear Discharge, Nose Pain, Nose Discharge, Nose Congestion, Mouth Pain, Mouth Swelling, Throat Pain, Throat Swelling, Other Respiratory: SOB with Excertion. negative: Cough, Dry, Shortness of Breath, Hemoptysis, Pleuritic Pain, Sputum, Wheezing Cardiovascular: light headedness. negative: chest pain, palpitations, orthopnea , paroxysmal nocturnal dyspnea, edema, other Gastrointestinal: negative: Nausea, Vomiting, Abdominal Pain, Diarrhea, Constipation, Melena, Hematochezia, Other Genitourinary: negative: Dysuria, Frequency, Incontinence, Hematuria, Retention , Other Musculoskeletal: negative: Neck Pain, Shoulder Pain, Arm Pain, Back Pain, Hand Pain, Leg Pain, Foot Pain, Other Skin: negative: Rash, Lesions, Homar, Bruising, Other - Medications/Allergies Allergies/Adverse Reactions: Allergies Allergy/AdvReac Type Severity Reaction Status Date / Time ciprofloxacin [From Cipro] Allergy Severe Anaphylaxis Verified 09/05/17 00:54 ciprofloxacin HCl Allergy Unknown Verified 09/05/17 00:54 [From Cipro] Medications: Current Medications Acetaminophen (Tylenol) 1,000 mg PO Q6H PRN PRN Reason: Headache/Fever or Mild Pain Last Admin: 09/11/17 10:14 Dose: 1,000 mg Allopurinol (Zyloprim) 100 mg PO QAM [facility] Last Admin: 09/11/17 10:05 Dose: 100 mg Amiodarone HCl (Cordarone) 100 mg PO QAM [facility] Last Admin: 09/11/17 10:06 Dose: 100 mg Amoxicillin/Clavulanate Potassium (Augmentin) 875 mg PO Q12HR [facility] Last Admin: 09/11/17 10:07 Dose: 875 mg Aspirin (Ecotrin) 81 mg PO QPM [facility] Last Admin: 09/10/17 20:54 Dose: 81 mg Atorvastatin Calcium (Lipitor) 40 mg PO HS [facility] Last Admin: 09/10/17 20:54 Dose: 40 mg Bupropion HCl (Wellbutrin Xl) 150 mg PO DAILY [facility] Last Admin: 09/11/17 10:07 Dose: 150 mg Cholecalciferol (Vitamin D3) 2,000 units PO DAILY [facility] Last Admin: 09/11/17 10:08 Dose: 2,000 units Clonidine (Catapres) 0.1 mg PO Q4H PRN PRN Reason: Systolic BP > 180 Cyanocobalamin (Vitamin B-12) 2,000 mcg PO DAILY [facility] Last Admin: 09/11/17 10:08 Dose: 2,000 mcg Dextrose/Water (Dextrose 50%) 25 gm SLOW IVP PRN PRN PRN Reason: Hypoglycemia Famotidine (Pepcid) 20 mg PO BID [facility] Last Admin: 09/11/17 10:08 Dose: 20 mg Ferrous Sulfate (Feosol) 325 mg PO DAILY [facility] Last Admin: 09/11/17 10:08 Dose: 325 mg Fluoxetine HCl (Prozac) 40 mg PO BID [facility] Last Admin: 09/11/17 10:08 Dose: 40 mg Gabapentin (Neurontin) 300 mg PO TID [facility] Last Admin: 09/11/17 10:08 Dose: 300 mg Glucagon (Glucagon) 1 mg IM PRN PRN PRN Reason: Hypoglycemia Hydralazine HCl (Apresoline) 10 mg SLOW IVP Q4H PRN PRN Reason: Systolic BP > 180 Dextrose/Water (D5w) 1,000 mls @ 0 mls/hr IV .Q0M PRN; As Directed PRN Reason: Hypoglycemia Ceftriaxone Sodium 1 gm/ (Sodium Chloride) 100 mls @ 200 mls/hr IVPB 0100 [facility] Last Admin: 09/11/17 01:05 Dose: 100 mls Insulin Human Lispro (Humalog) 0 units SC .MODERATE SLIDING SC PRN PRN Reason: Moderate Correctional Scale Last Admin: 09/10/17 12:22 Dose: 2 units Insulin Human Lispro (Humalog) 0 units SC .BEDTIME SLIDING SC PRN PRN Reason: Bedtime Correctional Scale Levothyroxine Sodium (Synthroid) 100 mcg PO 0600 [facility] Last Admin: 09/11/17 05:43 Dose: 100 mcg Ondansetron HCl (Zofran Odt) 4 mg PO Q6H PRN PRN Reason: Nausea/Vomiting Last Admin: 09/09/17 20:54 Dose: 4 mg Ondansetron HCl (Zofran) 4 mg IVP Q6H PRN PRN Reason: Nausea/Vomiting Potassium Chloride (K-Dur) 20 meq PO QAM [facility] Last Admin: 09/11/17 10:09 Dose: 20 meq Sodium Chloride (Flush - Normal Saline) 10 ml IVF Q12HR [facility] Last Admin: 09/11/17 10:09 Dose: Not Given Sodium Chloride (Flush - Normal Saline) 10 ml IVF PRN PRN PRN Reason: Saline Flush
[2017-09-11] MEDS: HumaLOG 300 UNITS/3 ML VIAL SC PRN ×2 (12:22→16:58)
--- NOTE | 2017-09-11 12:34 | DIS ---
DATE OF ADMISSION: 09/05/2017 DATE OF DISCHARGE: 09/11/2017 PRIMARY CARE PHYSICIAN: Moncho Rivera M.D. DISCHARGE DISPOSITION: [facility]. PRIMARY DISCHARGE DIAGNOSES: 1. Near syncope/dizziness due to ventricular tachycardia (nonsustained ventricular tachycardia). 2. Orthostatic hypotension. 3. Physical deconditioning. 4. Pseudomonas diarrhea. 5. Acute on chronic diastolic heart failure exacerbation, resolved. SECONDARY DISCHARGE DIAGNOSES: Chronic diastolic heart failure, paroxysmal atrial fibrillation, obst ructive sleep apnea, hypothyroidism, hypertension, history of cirrhosis, dyslipidemia, diabetes type 2, coronary artery disease, obesity with body mass index 35, chronic iron deficiency anemia. PRIMARY PROCEDURE/OPERATION: Interrogation of his pacemaker. RADIOLOGICAL INVESTIGATION: Chest x-ray on admission showed no acute cardiopulmonary process, cardio megaly. CT brain was negative for any acute intracranial process. Carotid Doppler was negative for any carotid stenosis. Repeat chest x-ray showed mild pulmonary vascular congestion. SIGNIFICANT LABORATORY DATA: WBC 9.1, hemoglobin 13.1, platelet 174, sodium 134, potassium 3.9, BUN 14, creatinine 0.82, calcium 8.3. Lactic acid 1.3. LFT normal. Troponin 0.110. Urinalysis normal. Stool for culture grew Pseudomonas aeruginosa. C. diff negative. DISCHARGE MEDICATIONS: Augmentin 875 mg p.o. b.i.d. for 5 days, Lasix 40 mg p.o. daily (dose reduced ), metoprolol 12.5 mg twice daily, allopurinol 100 mg p.o. daily, amiodarone 100 mg p.o. daily, aspir in 81 mg p.o. daily, Lipitor 40 mg p.o. at bedtime, Wellbutrin XL 150 mg p.o. daily, vitamin D3 of 20 00 units p.o. daily, vitamin B12 of 2000 mcg p.o. daily, ferrous sulfate 325 mg p.o. daily, Prozac 40 mg p.o. b.i.d., gabapentin 300 mg p.o. t.i.d., Tresiba 35 units in the morning and 30 units in eveni ng, Synthroid 100 mcg p.o. daily, methocarbamol 750 mg p.o. b.i.d., potassium chloride 20 mEq p.o. da rohan, tramadol 50 mg q.4 hourly p.r.n., Zantac 75 mg p.o. daily. CONTRAINDICATIONS: None. CODE STATUS: FULL CODE. INPATIENT CONSULTANTS: Dr. Garcia and Dr. Bright was following while in hospital. TEST RESULTS PENDING ON DISCHARGE: None. ALLERGIES: CIPROFLOXACIN. DISCHARGE PLAN: Post hospital, patient is planned for discharge to [facility] in [place]. Patient will follow up with primary care physician in [facility] and Dr. Bright as instructed. HOSPITAL COURSE: A 72-year-old male with above-mentioned medical problem who was admitted on [address] Roach. Please see his H&P for further detail. The patient was having generalized weakness , dizziness and near syncopal episode. During this admission, we interrogated his pacemaker and we f ound that he had nonsustained ventricular tachycardia. Patient was admitted to telemetry floor. Car diology was consulted and Cardiology recommended to continue to monitor while in hospital. He was al so having mild CHF exacerbation that was treated with IV diuretic therapy. After IV diuretic therapy , the patient's blood pressure was running low and that is why we discontinued Lasix as well as we ho ld metoprolol as well because patient was maintaining sinus rhythm even with amiodarone only. Patient had orthostatic hypotension and after discontinuing diuretic therapy and metoprolol, patient' s blood pressure was little bit improved. We transferred him to medical floor. The patient was havi ng a little bit low blood pressure and tachycardia that is why he was given 1 liter of IV fluid overn ight and that made him pulmonary vascular congestion and that is why we started Lasix therapy at redu christian dose upon discharge. We also resumed metoprolol 12.5 mg twice daily. While in hospital, we noted that his blood pressure was chronically low, but he was not having any mo re symptoms associated with that. We recommended intermediate that if blood pressure is running low, then they can hold Lasix as well as metoprolol therapy. Rest of medication will be given as tolerat ed. Patient had pseudomonas positive in stool culture and that is why we started Augmentin. Upon dischar ge, we are prescribing 5 days of therapy for Augmentin at intermediate. This patient has significant physical deconditioning and that is why patient's wanted to let him go to rehab facility in [facility] and with help of assistant case manager, we arranged [facility] for him. The patient is seen and examined at bedside today. Please see my progress note from today for furthe r detail. Paperwork for discharge done. Discharge medication reconciliation done. Total time spent on discharge day 31 minutes. This patient is at high risk for recurrent admission.
[2017-09-11 16:58] VITALS: BP 113/72; TEMP 98.6
== END 2017-09-11 17:06 | DRG 292 ==
LOC: ERS 17:34 → 2SW 22:00 → OBSVTOIN 09-05 15:11 → 2NO 09-06 15:20 → T4-A 09-09 12:44
PROVIDERS: ADMIT Family Medicine; ATTEND Family Medicine
DX: I11.0 Hypertensive heart disease with heart failure (principal); I24.8 Other forms of acute ischemic heart disease; I47.2 Ventricular tachycardia; A09 Infectious gastroenteritis and colitis, unspecified; I50.31 Acute diastolic (congestive) heart failure; I25.10 Atherosclerotic heart disease of native coronary artery without angina pectoris; E11.9 Type 2 diabetes mellitus without complications; Z95.1 Presence of aortocoronary bypass graft; Z95.5 Presence of coronary angioplasty implant and graft; Z95.810 Presence of automatic (implantable) cardiac defibrillator; G47.33 Obstructive sleep apnea (adult) (pediatric); G89.29 Other chronic pain; M54.9 Dorsalgia, unspecified; E03.9 Hypothyroidism, unspecified; Z91.81 History of falling; E78.5 Hyperlipidemia, unspecified; I48.0 Paroxysmal atrial fibrillation; F32.9 Major depressive disorder, single episode, unspecified; Z79.899 Other long term (current) drug therapy; Z88.1 Allergy status to other antibiotic agents; Z87.891 Personal history of nicotine dependence; R55 Syncope and collapse; B96.5 Pseudomonas (aeruginosa) (mallei) (pseudomallei) as the cause of diseases classified elsewhere; D50.8 Other iron deficiency anemias; E66.9 Obesity, unspecified; Z68.35 Body mass index [BMI] 35.0-35.9, adult; I95.2 Hypotension due to drugs; T50.1X5A Adverse effect of loop [high-ceiling] diuretics, initial encounter; R53.81 Other malaise
CPT/HCPCS: 36415; 36416; 70450; 71045; 71046; 80048; 80053; 81003; 82553; 83036; 83605; 83630; 83690; 83735; 83880; 84443; 84484; 85007; 85025; 85027; 87040; 87045; 87046; 87077; 87081; 87149; 87186; 87449; 87899; 93005; 93798; 93880; 96374; A4216; G8978-GP-CK; G8979-GP-CI; G8987-GO-CK; G8988-GO-CI; J0696; J3010; J7050; Q0162

== ENCOUNTER 2017-09-13 09:38 | Inpatient (IN) | payer MEDICARE, BC ==
[2017-09-13 10:15] LABS: #Lymphocytes 0.8 thou/uL (1.20-3.40); %Basophils 0.2 % (0.0-1.0); %Eosinophils 0.4 % (0.0-10.0); %Lymphocytes 6.9 % (21.0-51.0); %Monocytes 8.5 % (0.0-10.0); Hemoglobin 14.1 g/dL (14.0-18.0); Mean Corpuscular HGB CONC 32.6 g/dL (32.0-36.0); Mean Corpuscular Hemoglobin 31.3 pg (27.0-31.0); Mean Corpuscular Volume 96.1 fl (80.0-94.0); Mean Platelet Volume 7.2 fL (7.4-10.4); Platelet Count 188 thou/uL (130-400); RBC Distribution Width 13.5 % (11.5-14.5); Red Blood Cell (RBC) Count 4.51 mill/uL (4.70-6.10); White Blood Cell (WBC) Count 11.9 thou/uL (4.8-10.8)
[2017-09-13] MEDS ORDERED: Ondansetron ODT 4 MG TAB ONE (10:31)
[2017-09-13 10:41] LABS: CKMB 1.7 ng/mL (0-6.6); Troponin I 0.091 ng/mL (< 0.028)
[2017-09-13 10:51] LABS: ALT (SGPT) 35 U/L (8-55); AST (SGOT) 38 U/L (5-34); Albumin 2.6 g/dL (3.4-4.8); Alkaline Phosphatase 134 U/L (40-150); Anion Gap 12 mmol/L (10-20); BUN (Urea Nitrogen) 13 mg/dL (8.4-25.7); Calc. Creatinine Clearance 0 mL/min (70-130); Calcium 8.4 mg/dL (7.8-10.44); Carbon Dioxide 20 mmol/L (23-31); Chloride 106 mmol/L (98-107); Estimated GFR-MDRD Greater than 90; Globulin 3.3 g/dL (2.4-3.5); Glucose 169 mg/dL (80-115); Potassium 4.2 mmol/L (3.5-5.1); Protein, Total 5.9 g/dL (5.8-8.1); Sodium 134 mmol/L (136-145)
--- NOTE | 2017-09-13 11:15 | RAD ---
PORTABLE UPRIGHT FRONTAL CHEST RADIOGRAPH: DATE: 09/13/17. COMPARISON: 07/14/16. HISTORY: Shortness of breath and chest pain. FINDINGS: Midline sternotomy wires, mediastinal clips, transvenous AICD, and cervical spine hardware present an d stable. The cardiac silhouette is enlarged, stable. There is mild pulmonary vascular congestion wi th no pneumothorax, pleural fluid, lobar consolidation, or alveolar edema. IMPRESSION: Chronic findings as described above. No lobar consolidation or alveolar edema. POS: [facility]
[2017-09-13] MEDS ORDERED: ISOVUE-370 76%-LOCM 1 ML ONE (11:36)
[2017-09-13] MEDS ORDERED: Nitroglycerin 0.4 MG TAB (25 Tab Bottle) PO PRN (11:46)
--- NOTE | 2017-09-13 12:34 | HP ---
PRIMARY CARE PROVIDER: Lizzy Carlisle M.D. CHIEF COMPLAINT: Chest pain. HISTORY OF PRESENT ILLNESS: Mr. Subramanain is a pleasant 72-year-old gentleman who was seen at [facility] on 09/13/2017. He was hospitalized at this facility from 09/05/2017-09/11/2017 for near syncope/dizziness due to bharath tricular tachycardia, orthostatic hypotension, physical deconditioning, Pseudomonas diarrhea and acut e on chronic diastolic heart failure exacerbation. He was discharged to [facility]. He reports that over the last 4 days, in fact even prior to his discharge, he was having pains across his chest. He describes that they were not intense prior to his discharge. He describes that they are sharp, across his chest, probably radiating to his neck, accompanied by nausea, diaphoresis, dizz iness and lightheadedness. He reports that the pains are on and off. He cannot recall any aggravati ng factors. He reports that he got some nitroglycerin earlier today with relief of the pain. He den ies any cough, fevers or chills. REVIEW OF SYSTEMS: All other systems reviewed and found to be negative. PAST MEDICAL HISTORY: Obstructive sleep apnea syndrome on nocturnal CPAP, chronic back pain, coronar y artery disease, diastolic dysfunction, chronic elevated troponin I, hypothyroidism, falls, decondit ioning, diabetes mellitus type 2, dyslipidemia, hypertension, paroxysmal atrial fibrillation, liver c irrhosis and depression. PAST SURGICAL HISTORY: Coronary artery bypass graft x4 vessels, cardiac ablation, back surgery, righ t inguinal hernia repair, colonoscopy, abdominal aortic aneurysm repair, cardiac catheterization in 2 016, at which time the grafts were patent. SOCIAL HISTORY: Patient denies tobacco use, alcohol use or recreational drug use. FAMILY HISTORY: Significant for coronary artery disease and diabetes mellitus. CODE STATUS: He is FULL CODE. His is surrogate decision maker. ALLERGIES: CIPROFLOXACIN. CURRENT MEDICATIONS: Allopurinol 100 mg daily, amiodarone 100 mg daily, fluoxetine 40 mg 2 times a d ay, gabapentin 300 mg 3 times a day, iron 65 mg daily, metoprolol tartrate 12.5 mg 2 times a day, pot assium chloride 20 mEq daily, aspirin 81 mg daily, atorvastatin 40 mg daily, methocarbamol 750 mg 2 t imes a day as needed, levothyroxine 100 mcg daily, tramadol 100 mg every 4 hours. PHYSICAL EXAMINATION: GENERAL: On examination, Mr. Subramanian is awake and alert, not in acute distress. He is obese. VITAL SIGNS: Blood pressure is 102/76. Pulse is 110. He is breathing at rate of 18 and saturating 98% on room air. He is afebrile. EYES: No scleral icterus. No conjunctival pallor. ENT: Moist mucosal membranes. No oropharyngeal erythema or exudates. NECK: Supple, nontender, normal range of movement. Trachea is midline. RESPIRATORY: Accessory muscles of breathing are not active. Chest wall movements are symmetric bila terally. LUNGS: Clear to auscultation without wheeze, rhonchi or crepitations. CARDIOVASCULAR: S1 and S2 are heard, tachycardic and regular. Peripheral pulses palpable. No carot id bruit, no pericardial rub. ABDOMEN: Soft and nontender. Bowel sounds are heard, no hepatomegaly, no splenomegaly. NEUROLOGIC: Cranial nerves II-XII intact, deep tendon reflexes are 2+. MUSCULOSKELETAL: Power is 5/5 in all 4 extremities. He has bilateral lower extremity edema. SKIN: No rashes or subcutaneous nodules. LYMPHATIC: No cervical lymphadenopathy. PSYCHIATRIC: Normal mood, normal affect, patient is oriented to person and place, but not to time. IMAGING DATA AND LABORATORY DATA: Mr. Subramanian's labs and investigations were reviewed. I reviewed hi s electrocardiogram, which shows atrial fibrillation with rapid ventricular response, he has T-wave i nversions in the lateral leads and T-wave flattening in the inferior leads. I also reviewed his ches t x-ray, which does not show any pulmonary infiltrates. He has leukocytosis with 11,900 white cells, normal hemoglobin, normal platelet count, neutrophil percentage is 84%, normal potassium, decreased sodium of 134, normal creatinine, elevated AST of 38, normal ALT, normal total bilirubin, normal zack line phosphatase. ASSESSMENT AND PLAN: Mr. Subramanian is a pleasant 72-year-old gentleman who was seen at [facility] on 09/13/2017. His problem list includes: 1. Chest pain: Given his significant cardiac risk factors as well as previous history of coronary a rtery disease, he will be admitted to the hospital on observation status on laboratory monitor. I dianna l check nuclear stress test. We will also check D-dimer to rule out pulmonary embolism, since his mo bility has been low. 2. Diarrhea: The patient endorses having diarrhea until yesterday. He reports the diarrhea has res olved. 3. Hypertension: Monitor vital signs, titrate antihypertensives as needed. 4. Diabetes mellitus type 2: Start Accu-Cheks and insulin sliding scale. 5. Hypothyroidism: Continue Synthroid. 6. Paroxysmal atrial fibrillation: On the monitor, rate is controlled at this time. 7. Deconditioning: The patient to be discharged to rehab once workup is complete. LEVEL OF RISK: High. LEVEL OF COMPLEXITY: High. Many thanks for allowing me to participate in your patient's care. Please feel free to contact me wi th any questions or concerns.
[2017-09-13 13:31] LABS: Troponin I 0.101 ng/mL (< 0.028)
[2017-09-13] MEDS ORDERED: Methocarbamol 500 MG TAB PO PRN (15:16)
[2017-09-13] MEDS ORDERED: traMADol HCl 50 MG TAB PO PRN (15:16)
[2017-09-13] MEDS ORDERED: Acetaminophen 325 MG TAB PO PRN (15:16)
[2017-09-13] MEDS ORDERED: Acetaminophen/Codeine 30-300mg Tablet PO PRN (15:25)
[2017-09-13] MEDS: Acetaminophen/Codeine 30-300mg Tablet PO PRN ×2 (15:48→20:50)
[2017-09-13 16:45] LABS: Troponin I 0.132 ng/mL (< 0.028)
[2017-09-13 18:16] VITALS: BMI 36.1
[2017-09-13] MEDS ORDERED: Morphine 4 MG/ML VIAL SLOW IVP PRN (18:49)
[2017-09-13] MEDS: Ketorolac Tromethamine 30 MG/ML VIAL IVP SCH ×2 (19:00→21:06)
[2017-09-13 19:07] LABS: Troponin I 0.187 ng/mL (< 0.028)
[2017-09-13] MEDS ORDERED: Enoxaparin Sodium 120 MG/0.8 ML SYRINGE SC SCH (19:15)
[2017-09-13] MEDS ORDERED: Sodium Chloride 0.9% 250 ML 250 ML IVPB SCH (19:15)
[2017-09-13] MEDS: Gabapentin 300 MG CAP PO SCH (19:57)
[2017-09-13] MEDS: FLUoxetine HCl 20 MG CAP PO SCH (19:57)
[2017-09-13] MEDS: Atorvastatin Calcium 40 MG TAB PO SCH (19:57)
[2017-09-13] MEDS: Aspirin 81 mg Enteric Coated Tablet PO SCH (19:58)
[2017-09-13] MEDS: Metoprolol Tartrate 25 MG TAB PO SCH (19:58)
--- NOTE | 2017-09-13 20:12 | CT ---
CTA CHEST WITH 3D VOLUME RENDERING: INDICATIONS: Elevated D-dimer with history of chest pain. FINDINGS: There is prominent volume of the pulmonary arteries relative to the adjacent thoracic aorta, which ca n be seen in the setting of pulmonary artery hypertension. Correlate clinically. There is no significant filling defect of the pulmonary arteries to indicate acute pulmonary embolus. Bilateral mild pleural fluid with adjacent parenchymal consolidation is present, more notable on th e left. Diffuse vascular disease is present. There is no pneumothorax. Streak artifact from a left -sided cardiac pacing device does limit visualization. There is a cirrhotic morphology of the liver with ascites at the imaged upper abdomen and moderate gallbladder distention. There are osseous dege nerative changes. IMPRESSION: 1. No evidence of acute pulmonary embolus. 2. Bilateral pleural fluid with adjacent consolidation that may relate to atelectasis and/or pneumon ia. Correlate clinically. 3. Cirrhotic morphology of the liver with ascites and gallbladder distention. 4. Diffuse atherosclerosis. POS: [facility]
[2017-09-13] MEDS ORDERED: Ketorolac Tromethamine 30 MG/ML VIAL ONE (20:44)
[2017-09-13] MEDS ORDERED: Amoxicillin/Potassium Clav 875 MG TAB PO SCH (21:00)
--- NOTE | 2017-09-13 23:35 | PDOC.EVN ---
Event Note - Event Note Event Note: concern for PNA, HAP 2/2 recent hospitalization vanc + cefepime started empirically
[2017-09-13] MEDS: Cefepime 2 GM in Sodium Chloride 0.9% 100 ML IVPB SCH (23:58)
[2017-09-14 01:06] LABS: Actual Bicarbonate (HCO3a) 20.2 mEq/L (22-26); Base Excess (BEa) -4.2 mEq/L (0 (+/-) 2.5); Carboxyhemoglobin (COHb) 1.9 gm% (0.0-3.0); Hematocrit-ABG 40.7 % (42.0-52.0); Hemoglobin (Hb) 13.2 g/dL (14.0-18.0); O2 Tension (PaO2) 65.9 mmHg (80.0-100.0); pH, Arterial 7.38 (7.35-7.45)
[2017-09-14 01:07] LABS: Analyzer IN Cardio OR; Calcium, Ionized 1.2 mmol/L (1.12-1.30); Potassium - ABG Lab 3.8 mmol/L (3.70-5.30); Puncture Site R BRACHIAL
--- NOTE | 2017-09-14 01:20 | PDOC.EVN ---
Event Note - Event Note Event Note: code green for hypotension SBP 60s on routine VS pt is awake, conversant, with slowed speech, @ bedside denies any active CP feels that the patient's mentation has been intact but slowed since taking morphine earlier for CP conversant, NAD, lying in hospital bed, no c/o s1, s2, pulses 2+ b/l UE, no pitting pedal edema limited ant exam, reasoanble air mvmt, no w/r/r, ctab + bs, soft, slightly tender to moderate palpation a/p hypotension IVF NX 1L bolus with serial VSS to closely monitor BP, HR,and respiratory status hypotension improving with IVF, unclear etiology concern for possible SBP? 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 ammonia hx of cirrhosis at risk for fluid "overload" with IVF given for hypotension will need close monitoring concern for PNA as etiology of presenting CP vanc, cefepime given recent hospitalization and possibility of HAP check blood cultures, lactic acid, repeat CBC CP on presentation seen by cardiology troponin elevation likely demand type pattern - will repeat troponin chest pain is resolved continue to monitor for continued ssx CTA ruled out PE despite elev d dimer repeat EKG stat now no change from prior transfer to [facility] critical care time >50 min at bedside d/w bedside nsg, charge nsg, pt's at bedside
[2017-09-14 01:29] LABS: ALT (SGPT) 30 U/L (8-55); AST (SGOT) 37 U/L (5-34); Albumin 2.4 g/dL (3.4-4.8); Alkaline Phosphatase 133 U/L (40-150); Anion Gap 10 mmol/L (10-20); BUN (Urea Nitrogen) 17 mg/dL (8.4-25.7); Calc. Creatinine Clearance 120 mL/min (70-130); Calcium 8.4 mg/dL (7.8-10.44); Carbon Dioxide 20 mmol/L (23-31); Chloride 109 mmol/L (98-107); Estimated GFR-MDRD 73; Globulin 3.2 g/dL (2.4-3.5); Glucose 112 mg/dL (80-115); Magnesium 1.7 mg/dL (1.6-2.6); Potassium 4.1 mmol/L (3.5-5.1); Protein, Total 5.6 g/dL (5.8-8.1); Sodium 135 mmol/L (136-145)
[2017-09-14 01:34] LABS: Troponin I 0.931 ng/mL (< 0.028)
[2017-09-14] MEDS ORDERED: Naloxone HCl 0.4 mg/ml Vial IVP SCH (01:45)
[2017-09-14] MEDS ORDERED: Naloxone HCl 1 MG in Sodium Chloride 0.9% 500 ML IV SCH (01:45)
[2017-09-14] MEDS: Sodium Chloride 0.9% 1,000 ML IV SCH ×3 (02:10→18:19)
[2017-09-14 06:04] LABS: Anion Gap 12 mmol/L (10-20); BUN (Urea Nitrogen) 18 mg/dL (8.4-25.7); Calc. Creatinine Clearance 126 mL/min (70-130); Calcium 8.1 mg/dL (7.8-10.44); Carbon Dioxide 19 mmol/L (23-31); Chloride 109 mmol/L (98-107); Estimated GFR-MDRD 77; Glucose 90 mg/dL (80-115); Potassium 4.2 mmol/L (3.5-5.1); Sodium 136 mmol/L (136-145)
[2017-09-14 06:15] LABS: Band 16 % (5-11); Hemoglobin 12.9 g/dL (14.0-18.0); Lymphocytes 6 % (21-51); MDiff Complete? YES; Mean Corpuscular Hemoglobin 31.9 pg (27.0-31.0); Mean Corpuscular Volume 96.9 fl (80.0-94.0); Mean Platelet Volume 7.5 fL (7.4-10.4); Monocytes 5 % (0-10); Neutrophil 73 % (42-75); Platelet Count 188 thou/uL (130-400); RBC Distribution Width 13.4 % (11.5-14.5); Red Blood Cell (RBC) Count 4.05 mill/uL (4.70-6.10); White Blood Cell (WBC) Count 19.9 thou/uL (4.8-10.8)
[2017-09-14] MEDS: Levothyroxine Sodium 100 MCG TAB PO SCH (06:23)
[2017-09-14 07:52] LABS: Troponin I 1.169 ng/mL (< 0.028)
[2017-09-14 08:40] LABS: Bilirubin Negative (Negative); Blood, Urine Moderate (Negative); Clarity CLEAR (Clear); Glucose, Urine (Dipstick) 100 mg/dL (Negative); Leukocyte Negative (Negative); Nitrite Negative (Negative); Protein, Urine (Dipstick) Trace mg/dL (Neg-Trace); Urobilinogen 0.2 mg/dL (0.2-1.0); pH, Urine 5.5 (5.0-9.0)
[2017-09-14] MEDS: Enoxaparin Sodium 120 MG/0.8 ML SYRINGE SC SCH ×2 (08:42→20:00)
[2017-09-14] MEDS: Albumin 25% 25 GM/100 ML BOT IVPB SCH (08:42)
[2017-09-14 08:43] LABS: Bacteria/HPF None Seen HPF (None Seen); Hyaline Casts/LPF 7-10 HYALINE CAST LPF (0-3 Hyaline); Pathc Cast-AUWi Flag 2.03 (0-2.49); RBC/HPF 21-50 HPF (0-3); Squamous Epithelial 0-3 HPF (0-3); WBC/HPF 0-3 HPF (0-3)
[2017-09-14 08:45] LABS: Specific Gravity, Urine 1.046 (1.002-1.036)
[2017-09-14] MEDS ORDERED: Enoxaparin Sodium 40 MG/0.4 ML SYRINGE SC SCH (09:00)
[2017-09-14] MEDS ORDERED: Allopurinol 100 MG TAB PO SCH (09:00)
[2017-09-14] MEDS ORDERED: Bupropion 150 MG XL TAB PO SCH (09:00)
[2017-09-14] MEDS ORDERED: INSULIN DEGLUDEC 35 UNIT SC SCH (09:00)
[2017-09-14] MEDS ORDERED: Furosemide 40 MG TAB PO SCH (09:00)
[2017-09-14] MEDS ORDERED: Enoxaparin Sodium 120 MG/0.8 ML SYRINGE SC SCH (09:00)
[2017-09-14] MEDS ORDERED: Insulin Glargine 35 UNITS in Pre-Filled Syringe SC SCH (09:00)
--- NOTE | 2017-09-14 09:05 | RAD ---
ABDOMEN ONE VIEW: HISTORY: Code green. FINDINGS: Nonspecific bowel gas pattern. No obvious pneumoperitoneum in the supine projection. Post surgical changes involving the lumbar spine and left SI joint are noted. Contrast is present in the urinary b ladder. IMPRESSION: Nonspecific bowel gas pattern. POS: [facility]
[2017-09-14] MEDS: Amiodarone 200 MG TAB PO SCH (09:48)
[2017-09-14] MEDS: Cyanocobalamin (Vitamin B-12) 1,000 MCG TAB PO SCH (09:49)
[2017-09-14] MEDS: Famotidine 20 MG TAB PO SCH (09:49)
[2017-09-14] MEDS: FLUoxetine HCl 20 MG CAP PO SCH (09:49)
[2017-09-14] MEDS: Gabapentin 300 MG CAP PO SCH ×2 (09:49→16:47)
[2017-09-14] MEDS: Ferrous Sulfate 325 MG TAB PO SCH (09:49)
[2017-09-14] MEDS: Potassium Chloride 20 MEQ TAB PO SCH (09:50)
[2017-09-14] MEDS: Metoprolol Tartrate 25 MG TAB PO SCH (09:50)
--- NOTE | 2017-09-14 12:37 | CON ---
DATE OF CONSULTATION: 09/13/2017 HISTORY: Keith Subramanian is a 72-year-old white male with longstanding history of coronary artery disease. He has undergone previous bypass surgery as well as stent placement in the LAD distal to the WHYTE insertion. He has had an atrial flutter ablation and has paroxysmal atrial fibrillation. He has had gastrointestinal bleeding with anticoagulation and underwent atrial fibrillation ablation in [place]. Also an attempt was made to place a Watchman, but apparently, his left atrial appendage was too small for the Watchman, and it was never delivered. Also, in 08/2015, he had nonsustained ventricular tachycardia, underwent an electrophysiology study. He had inducible ventricular tachycardia. His ejection fraction was 50%-55%. He underwent placement of a dual chamber [employer] ICD. Also, he underwent cardiac catheterization and his grafts were patent and the stent distal to the WHYTE insertion continued to be patent. He has continued to have problems with diastolic heart failure. He was admitted several times with heart failure. His most recent admission was earlier this month and in fact, he was discharged 2 days prior to this admission. He was having weak episodes which was felt this is probably related to nonsustained ventricular tachycardia, which was seen on his ICD. He states that even before he started going home, he started to have more problems with chest pain. He describes this as sharp, stabbing pain in his chest that would last approximately 20 minutes at a time. It is not necessarily related to exertion. The pain is definitely pleuritic in nature. He has noted that his chest feels very tender. PAST MEDICAL HISTORY: Chronic diastolic heart failure, coronary artery disease , diabetes, atrial fibrillation, status post ablation, obesity, history of ventricular tachycardia, hyperlipidemia, obstructive sleep apnea, hypertension and mild aortic stenosis. OPERATIONS: Abdominal aortic aneurysm repair, CABG, back surgery. Attempt at placement of a Watchman; however, the left atrial appendage was too small, right inguinal hernia repair. MEDICATIONS: Augmentin 875 b.i.d. (for Pseudomonas in his stools), allopurinol 100 q.a.m., amiodarone 100 q.a.m., aspirin 81 daily, atorvastatin 40 at bedtime , vitamin D3, vitamin B12, iron 65 daily, Prozac 40 mg b.i.d., furosemide 40 mg q.a.m., gabapentin 300 t.i.d., insulin, levothyroxine 100 mcg q.a.m., metoprolol 25 b.i.d., potassium 20 q.a.m., Zantac 75 q.a.m., Ultram p.r.n. ALLERGIES: CIPRO. SOCIAL HISTORY: Does not smoke or drink. REVIEW OF SYSTEMS: Ten-point review of systems is unremarkable. PHYSICAL EXAMINATION: VITAL SIGNS: Blood pressure 142/83, pulse of 106, atrial fibrillation on the monitor. HEENT: PERRL. NECK: Supple. CHEST: Fairly clear. CARDIAC: S1, S2 normal without any S3 or S4. There is a 1/6 systolic murmur. ABDOMEN: Obese. Normal bowel sounds, without tenderness or organomegaly. EXTREMITIES: Revealed no clubbing, cyanosis or edema. NEUROLOGIC: Grossly intact. MUSCULOSKELETAL: Reveal palpable chest wall tenderness that seemed to reproduce a lot of his pain. LABORATORY DATA AND IMAGING DATA: EKG reveals atrial fibrillation with fast ventricular response with nonspecific ST and T-wave changes. White count is up to 11,900, hemoglobin 14.1, hematocrit 43.3, platelets 188,000. D-dimer 2.20. He underwent CTA of the chest and was found to have no evidence of pulmonary emboli. There was question about infiltrates on the chest x-ray. Sodium 134, potassium 4.2, chloride 106, carbon dioxide 20, BUN 13, creatinine 0.75. Troponin I is up to 0.187 (patient has chronically elevated troponins). IMPRESSION: 1. Probable noncardiac chest pain, sharp stabbing pain with palpable chest wall tenderness. 2. Elevated white count. The patient is somewhat diaphoretic on exam and chest CT possibly showing infiltrates. 3. History of diastolic heart failure. 4. Status post coronary artery bypass graft x3, as well as stent placement in the LAD distal to the WHYTE insertion. 5. History of atrial flutter ablation. 6. History of atrial fibrillation ablation. 7. Unable to place Watchman. 8. Hypertension. 9. Diabetes. 10. Hyperlipidemia. 11. Obesity. 12. Obstructive sleep apnea. 13. Hypothyroidism. PLAN: At the present time, I do not feel any cardiac intervention is warranted. I am somewhat concerned about his elevated white count and the finding on chest x-ray and consideration should be given to a broader spectrum antibiotic therapy. MTDD
--- NOTE | 2017-09-14 12:38 | ULT ---
ABDOMEN ULTRASOUND: HISTORY: Right upper quadrant pain. COMPARISON: None. TECHNIQUE: Utilizing a multihertz transducer, sonographic imaging of the right upper quadrant is performed in th e longitudinal and transverse plane. FINDINGS: Suboptimal evaluation of the pancreas. Suboptimal evaluation of the aorta and inferior vena cava. Increased echogenicity of the liver with nodularity in the hepatic margin suggesting sclerotic change . There is evidence of perihepatic fluid. Right hepatic lobe is enlarged measuring 19.7 cm. Main p ortal vein is patent. Appropriate directional flow. Suboptimal evaluation of the common bile duct. Suggested common bile duct diameter is 0.4 cm. There is fluid in the gallbladder fossa which may result in mild thickening of the gallbladder wall. There is no evidence of sludge or stones. Negative Salas's sign. Both kidneys have a normal cortical echotexture. Bilaterally, no hydronephrosis. The right kidney m easures 14.4 x 7.4 x 5.5 cm. The left kidney measures 5.8 x 6.4 x 13.1 cm. There is mild bilateral renal cortical thinning. The spleen measures 18.7 cm. IMPRESSION: 1. Hepatosplenomegaly. 2. Nodularity of the liver suggesting cirrhotic change. 3. Ascites. POS: [facility]
[2017-09-14] MEDS: Cefepime 2 GM in Sodium Chloride 0.9% 100 ML IVPB SCH (12:43)
[2017-09-14] MEDS: Vancomycin HCl 1.75 GM in Sodium Chloride 0.9% 500 ML IVPB SCH (12:50)
--- NOTE | 2017-09-14 13:35 | PDOC.PN ---
- Subjective Encounter Start Date: 09/14/17 Encounter Start Time: 10:20 Pt seen for followup re: elevated troponin. Denies chest pain, feels weak. No nausea, vomiting or cough. Denies dysuria. - Objective MAR Reviewed: Yes Vital Signs & Weight: Vital Signs (12 hours) Temp Pulse Resp BP Pulse Ox 09/14/17 11:42 97.4 F L 91 20 95/59 L 95 09/14/17 08:45 95 09/14/17 08:00 97.7 F 88 20 94 L 09/14/17 07:29 97.7 F 88 18 97/61 96 Weight Weight 276 lb 9.6 oz I&O: 09/13/17 09/14/17 09/15/17 06:59 06:59 06:59 Intake Total 950 Output Total 325 Balance 950 -325 Result Diagrams: 09/14/17 04:19 09/14/17 04:19 Additional Labs: Accuchecks 09/14/17 09/14/17 09/14/17 11:01 06:27 00:56 POC Glucose 95 97 106 09/13/17 09/13/17 20:43 16:48 POC Glucose 121 H 131 H EKG Reviewed by me: Yes (Tele: a. colleen) Phys Exam - Physical Examination Obese HEENT: moist MMs, sclera anicteric, oral pharynx no lesions, 2+ tonsils Neck: no nodes, no JVD, supple, full ROM Respiratory: no wheezing, no rales, no rhonchi, clear to auscultation bilateral Cardiovascular: no rub, irregular S1, S2 Gastrointestinal: soft, positive bowel sounds distended; mild RUQ tenderness, no guarding or rigidity. Salas's sign neg Musculoskeletal: edema present Neurological: moves all 4 limbs Psychiatric: normal affect Deviation from normal: Oriented to person and place, not to time Dx/Plan (1) Hypotension Status: Acute Comment: Pt to get albumin, getting IV fluids. Etiology unclear , but pt has long history of hypotension. Pt had low TSH on September 05, will check free T3 and free T4. Check cortisol level as well. Continue IV antibiotics for possible sepsis (suspected source of infection lung). (2) Elevated troponin I level Code(s): R74.8 - ABNORMAL LEVELS OF OTHER SERUM ENZYMES Status: Acute Comment: NSTEMI vs. demand ischemia vs. sepsis. (3) DM2 (diabetes mellitus, type 2) Status: Chronic Qualifiers: Diabetes mellitus long term care phlebotomist insulin use: without long term care phlebotomist use Diabetes mellitus complication status: with unspecified complications Qualified Code(s) : E11.8 - Type 2 diabetes mellitus with unspecified complications Comment: continue accuchecks, insulin sliding scale. (4) HLD (hyperlipidemia) Code(s): E78.5 - HYPERLIPIDEMIA, UNSPECIFIED Status: Chronic Qualifiers: Hyperlipidemia type: unspecified Comment: Continue Statin (5) H/O cirrhosis Code(s): Z87.19 - PERSONAL HISTORY OF OTHER DISEASES OF THE DIGESTIVE SYSTEM Status: Chronic Comment: pt to have paracentesis (diagnostic) (6) HTN (hypertension) Code(s): I10 - ESSENTIAL (PRIMARY) HYPERTENSION Status: Chronic Qualifiers: Hypertension type: essential hypertension Comment: Hold antihypertensives due to hypotension (7) Hypothyroidism Code(s): E03.9 - HYPOTHYROIDISM, UNSPECIFIED Status: Chronic Qualifiers: Hypothyroidism type: unspecified Qualified Code(s): E03.9 - Hypothyroidism , unspecified (8) Paroxysmal atrial fibrillation Code(s): I48.0 - PAROXYSMAL ATRIAL FIBRILLATION Status: Chronic - Plan * . Review of Systems - Review of Systems Constitutional: weakness. negative: fever, chills, sweats, malaise Respiratory: negative: Cough, Shortness of Breath, SOB with Excertion, Pleuritic Pain, Wheezing Cardiovascular: negative: chest pain, palpitations, orthopnea, paroxysmal nocturnal dyspnea, edema, light headedness Genitourinary: negative: Dysuria, Frequency, Incontinence, Hematuria, Retention Skin: negative: Rash, Lesions, Homar, Bruising - Medications/Allergies Allergies/Adverse Reactions: Allergies Allergy/AdvReac Type Severity Reaction Status Date / Time ciprofloxacin [From Cipro] Allergy Severe Anaphylaxis Verified 09/05/17 00:54 ciprofloxacin HCl Allergy Unknown Verified 09/05/17 00:54 [From Cipro] Medications: Current Medications Acetaminophen (Tylenol) 650 mg PO Q6HR PRN PRN Reason: Pain Acetaminophen/Codeine Phosphate (Tylenol #3) 1 tab PO Q4H PRN PRN Reason: PAIN SCALE 1-5 Acetaminophen/Codeine Phosphate (Tylenol #3) 2 tab PO Q4H PRN PRN Reason: PAIN SCALE 6-10 Last Admin: 09/13/17 20:50 Dose: 2 tab Albumin Human (Albumin 25%) 25 gm IVPB 0830 [facility] Stop: 09/16/17 10:30 Last Admin: 09/14/17 08:42 Dose: 25 gm Allopurinol (Zyloprim) 100 mg PO QAM [facility] Last Admin: 09/14/17 09:48 Dose: Not Given Amiodarone HCl (Cordarone) 100 mg PO QAM [facility] Last Admin: 09/14/17 09:48 Dose: Not Given Aspirin (Ecotrin) 81 mg PO QPM [facility] Last Admin: 09/13/17 19:58 Dose: 81 mg Atorvastatin Calcium (Lipitor) 40 mg PO HS [facility] Last Admin: 09/13/17 19:57 Dose: 40 mg Bupropion HCl (Wellbutrin Xl) 150 mg PO DAILY [facility] Last Admin: 09/14/17 09:48 Dose: Not Given Cholecalciferol (Vitamin D3) 2,000 units PO DAILY [facility] Last Admin: 09/14/17 09:49 Dose: Not Given Cyanocobalamin (Vitamin B-12) 2,000 mcg PO DAILY [facility] Last Admin: 09/14/17 09:49 Dose: Not Given Enoxaparin Sodium (Lovenox) 120 mg SC 0900,2100 [facility] Last Admin: 09/14/17 08:42 Dose: 120 mg Famotidine (Pepcid) 20 mg PO QAM [facility] Last Admin: 09/14/17 09:49 Dose: Not Given Ferrous Sulfate (Feosol) 325 mg PO DAILY [facility] Last Admin: 09/14/17 09:49 Dose: Not Given Fluoxetine HCl (Prozac) 40 mg PO BID [facility] Last Admin: 09/14/17 09:49 Dose: Not Given Gabapentin (Neurontin) 300 mg PO TID [facility] Last Admin: 09/14/17 09:49 Dose: Not Given Insulin Glargine 35 units/ (Miscellaneous Medication) 0.35 mls @ 0 mls/[facility] [place] [facility] [place] Admin: 09/14/17 09:50 Dose: Not Given Cefepime HCl 2 gm/ Sodium (Chloride) 100 mls @ 200 mls/hr IVPB 1200,2359 [facility] Last Admin: 09/14/17 12:43 Dose: 100 mls Vancomycin HCl 1.75 gm/ Sodium (Chloride) 500 mls @ 250 mls/hr IVPB 0100,1300 [facility] Last Admin: 09/14/17 12:50 Dose: 500 mls Sodium Chloride (Normal Saline 0.9%) 1,000 mls @ 100 mls/hr IV .Q10H [facility] Last Admin: 09/14/17 12:44 Dose: Not Given Levothyroxine Sodium (Synthroid) 100 mcg PO 0600 [facility] Last Admin: 09/14/17 06:23 Dose: Not Given Methocarbamol (Robaxin) 750 mg PO BID PRN PRN Reason: Muscle Spasm Metoprolol Tartrate (Lopressor) 25 mg PO BID [facility] Last Admin: 09/14/17 09:50 Dose: Not Given Miscellaneous Medication (Pharmacy To Dose) 1 each IVPB ONE PRN PRN Reason: Pharmacy to dose Stop: 09/23/17 23:34 Morphine Sulfate (Morphine) 2 mg SLOW IVP Q2H PRN PRN Reason: .CHEST PAIN Last Admin: 09/13/17 19:09 Dose: 2 mg Nitroglycerin (Nitrostat) 0.4 mg PO Q5MIN PRN PRN Reason: Chest Pain Potassium Chloride (K-Dur) 20 meq PO QAM [facility] Last Admin: 09/14/17 09:50 Dose: Not Given Sodium Chloride (Flush - Normal Saline) 10 ml IVF Q12HR [facility] Last Admin: 09/14/17 09:00 Dose: 10 ml Sodium Chloride (Flush - Normal Saline) 10 ml IVF PRN PRN PRN Reason: Saline Flush
[2017-09-14 19:30] LABS: Free T4 (Free Thyroxine) 1.21 ng/dL (0.70-1.48)
[2017-09-14] MEDS: Atorvastatin Calcium 40 MG TAB PO SCH (19:59)
[2017-09-14] MEDS: Aspirin 81 mg Enteric Coated Tablet PO SCH (19:59)
--- NOTE | 2017-09-14 22:27 | CON ---
DATE OF CONSULTATION: 09/14/2017 SERVICE: Pulmonary medicine. REASON FOR CONSULTATION: Severe sepsis. HISTORY OF PRESENT ILLNESS: The patient is a 72-year-old white male with past medical history significant for cirrhosis, who presented to the hospital with chest discomfort on 09/13/2017. Initial blood cultures were positive for coag negative Staph in one out of two. That being said, the patient developed increasing signs of sepsis. Repeat blood culture was performed, associated with an elevated temperature. That is also growing gram-positive cocci. His troponins have started to trend up. He is having intermittent chest discomfort , it still comes and goes. He was recently in the hospital for ventricular tachycardia. He ended up getting an AICD placed. Multiple things have changed in a very short period of time. He was placed on vancomycin and his Augmentin was discontinued. He is also empirically placed on cefepime. He was moved down to the [facility] for closer observation. He is a little encephalopathic right now. He is having a hard time providing details of his presentation. That being said, he is awake though somnolent, and answering questions appropriately. He is extraordinarily thirsty at this point. PAST MEDICAL HISTORY: 1. Coronary artery disease. 2. Chronic diastolic heart failure. 3. Type 2 diabetes mellitus. 4. Dyslipidemia. 5. Hypertension. 6. Paroxysmal atrial fibrillation. 7. 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 8. Deconditioning. 9. Hypothyroidism. 10. Chronic back pain. 11. Obstructive sleep apnea, on CPAP therapy. 12. Major depressive disorder. PAST SURGICAL HISTORY: 1. Coronary artery bypass graft x4 vessels. 2. Cardiac ablation. 3. Back surgery. 4. Right inguinal hernia repair. 5. Colonoscopy. 6. Abdominal aortic aneurysm repair. 7. Cardiac catheterization in 2016. FAMILY HISTORY: Noncontributory. SOCIAL HISTORY: Negative for alcohol, tobacco, or illicit drug use currently. He has no exposure to chemicals, asbestos, or tuberculosis. ALLERGIES: CIPROFLOXACIN. MEDICATIONS: List of his inpatient medications were reviewed. Multiple updates were made. REVIEW OF SYSTEMS: General, head, ears, eyes, nose, throat, cardiovascular, respiratory, GI, , musculoskeletal, neurologic, and skin is negative except as mentioned in the HPI. PHYSICAL EXAMINATION: VITAL SIGNS: Afebrile, pulse 91, blood pressure 103/61, respirations 20, saturation 96% on 3 liters nasal cannula. GENERAL: Patient is somnolent. He is in no apparent distress. His respirations are unlabored. HEENT: Normocephalic, atraumatic. Sclerae are white. Conjunctivae pink. Oral mucosa is moist and without lesions. LUNGS: Reduced air entry. There is no prolonged expiratory phase. I do not appreciate any anterior crackles. Dependently, minimal crackles are present. No wheezing or rhonchi are appreciated. HEART: Normal rate, regular. ABDOMEN: Soft. Nontender to palpation. There is no rebound or guarding, but there is some distention associated with ascites. GENITOURINARY: Raymundo catheter in place. NEUROLOGIC: Grossly nonfocal. He is diffusely encephalopathic, however. LABORATORY DATA: WBC 19.9, hemoglobin 12.9, platelets 188,000. D-dimer 2.2. PH 7.38, pCO2 of 35, pO2 of 66. Basic metabolic profile is essentially unremarkable with a creatinine that is gently down trending to 0.96. Troponin is up trending to 1.2. Glucose is running in the 90s without his insulin. Ammonia level is normal. Liver function studies are essentially unremarkable. Lactate was normal. Urinalysis is positive for ketones, glucose, and blood. Red blood cells are 21-50, but there are no white blood cells present. Gram- positive cocci are growing in the blood culture. Recently, he had blood cultures x2 that were obtained, one of which was growing coag negative staph. IMAGING: Abdominal ultrasound demonstrates no acute process. Liver has a cirrhotic morphology. Hepatosplenomegaly is evident with ascites. CTA of the chest demonstrates no evidence of a pulmonary embolism. There is bilateral pleural fluid with adjacent consolidation, likely associated with passive atelectasis. Atherosclerosis is present diffusely: Chest x-ray demonstrates no lobar or alveolar consolidation is present. AICD is in place. Cervical spine hardware is also noted. ASSESSMENT: 1. Severe sepsis. 2. Metabolic encephalopathy. 3. Bacteremia with gram-positive cocci. 4. Non-ST elevation myocardial infarction. 5. Hematuria. PLAN: We will watch the patient very closely in the ICU. Currently, the only end-organ damage that he has is his encephalopathy. I am going to discontinue all of the centrally acting medications. Agree with good empiric antibiotic coverage. His ABG looks reassuring suggesting that he is handling his respiratory drive quite well. The is suggesting to me that his mentation is actually improving ever so slightly. As such, best supportive care will be continued. If for any reason, urine output starts to drop off significantly. His blood pressures fall off, we will need to transition him to the ICU for central line and initiation of Levophed. I will provide him with his CPAP at night. I think it would be a reasonable idea for him to use this while he is in the hospital to prevent him from having too much stress on his heart. 70 minutes have been devoted to this patient in various activities. I personally reviewed all imaging studies and laboratory data noted within this document. For fifty percent of this time, I was interacting with the patient at the bedside or coordinating care with the care team. For the remainder of the time I was immediately available to the patient in the hospital unit. BEATA
[2017-09-15] MEDS: Cefepime 2 GM in Sodium Chloride 0.9% 100 ML IVPB SCH ×2 (00:32→11:18)
[2017-09-15] MEDS: Vancomycin HCl 1.75 GM in Sodium Chloride 0.9% 500 ML IVPB SCH ×2 (00:32→11:18)
[2017-09-15 04:20] LABS: #Eosinphils 0.1 thou/uL (0.0-0.7); #Lymphocytes 0.9 thou/uL (1.20-3.40); #Neutrophils 9.8 thou/uL (1.40-6.50); %Basophils 0.2 % (0.0-1.0); %Eosinophils 0.5 % (0.0-10.0); %Lymphocytes 7.4 % (21.0-51.0); %Monocytes 8.5 % (0.0-10.0); %Neutrophils 83.4 % (42.0-75.0); Mean Corpuscular HGB CONC 33.2 g/dL (32.0-36.0); Mean Corpuscular Hemoglobin 32.4 pg (27.0-31.0); Mean Corpuscular Volume 97.7 fl (80.0-94.0); Mean Platelet Volume 7.4 fL (7.4-10.4); Platelet Count 194 thou/uL (130-400); RBC Distribution Width 13.5 % (11.5-14.5); Red Blood Cell (RBC) Count 3.99 mill/uL (4.70-6.10); White Blood Cell (WBC) Count 11.7 thou/uL (4.8-10.8)
[2017-09-15 04:28] LABS: Anion Gap 10 mmol/L (10-20); BUN (Urea Nitrogen) 19 mg/dL (8.4-25.7); Calc. Creatinine Clearance 151 mL/min (70-130); Calcium 8.1 mg/dL (7.8-10.44); Carbon Dioxide 19 mmol/L (23-31); Chloride 112 mmol/L (98-107); Estimated GFR-MDRD Greater than 90; Glucose 95 mg/dL (80-115); Potassium 3.9 mmol/L (3.5-5.1); Sodium 137 mmol/L (136-145)
[2017-09-15] MEDS: Levothyroxine Sodium 100 MCG TAB PO SCH (06:45)
[2017-09-15] MEDS: Sodium Chloride 0.9% 1,000 ML IV SCH ×2 (07:56→17:12)
[2017-09-15] MEDS: Albumin 25% 25 GM/100 ML BOT IVPB SCH (07:57)
[2017-09-15] MEDS: Famotidine 20 MG TAB PO SCH (07:57)
[2017-09-15] MEDS: Potassium Chloride 20 MEQ TAB PO SCH (07:57)
[2017-09-15] MEDS: Amiodarone 200 MG TAB PO SCH ×3 (07:58→21:18)
[2017-09-15] MEDS: Cyanocobalamin (Vitamin B-12) 1,000 MCG TAB PO SCH (07:58)
[2017-09-15] MEDS: Ferrous Sulfate 325 MG TAB PO SCH (07:58)
[2017-09-15] MEDS: Enoxaparin Sodium 120 MG/0.8 ML SYRINGE SC SCH (08:00)
--- NOTE | 2017-09-15 11:19 | PRG ---
DATE OF SERVICE: 09/15/2017 HISTORY: Mr. Subramanian feels miserable. He has chest pain when he takes a breath. He feels short of b reath. He is very uncomfortable to Raymundo catheter, and he has blood in the Raymundo catheter. He is al so coughing up some blood. He feels short of breath and just generally miserable. His blood pressure drops when he tries to sit up. PHYSICAL EXAMINATION: VITAL SIGNS: His blood pressure 123/69 in the supine position, but it drops when he tries to sit; pu lse is in the 90-105 range, atrial fibrillation. LUNGS: Some expiratory wheezing. CARDIAC: Irregularly irregular. ABDOMEN: Soft, nontender. EXTREMITIES: There is mild edema. GENITOURINARY: In the Raymundo catheter, there is gross hematuria. LABORATORY DATA: Creatinine is 0.81. The most recent troponin level 1.169. BNP recently 953. ASSESSMENT: 1. Congestive heart failure, diastolic, worsened. 2. Recurrent atrial fibrillation. 3. Recurrent gastrointestinal bleeding due to anticoagulation. 4. Gross hematuria. 5. Coronary artery disease. 6. Chest pain, does not appear to be cardiac. 7. Previous defibrillator implantation. 8. Previous bypass surgery and stent implantation. Most recent cardiac catheterization. He had an internal mammary artery patent to the LAD with good flow. Stent patent, no restenosis. Saphenous ve in graft to the marginal branch patent, good flow, no stenosis. The right coronary did not have obst ructive disease. PLAN: 1. We are going to have to stop anticoagulation due to the hematuria, which is gross. Also, cannot tolerate anticoagulation long-term. He has GI bleeding, if he stays on anticoagulation very long. 2. Watchman was tried to be placed, but cannot be placed successfully for anatomic reasons. 3. We will increase amiodarone. 4. Try to do transesophageal echo and cardioversion later this week after increasing amiodarone dose . 5. Intravenous diuretic. 6. Prognosis is guarded in this gentleman with multiple severe medical problems.
[2017-09-15 12:39] LABS: Vancomycin, Trough 22.8 ug/mL
[2017-09-15] MEDS: Vancomycin HCl 1.25 GM in Sodium Chloride 0.9% 250 ML 250 ML IVPB SCH (12:59)
--- NOTE | 2017-09-15 13:52 | PRG ---
DATE OF SERVICE: 09/15/2017 PHYSICAL EXAMINATION: VITAL SIGNS: Mr. Subramanian is afebrile, heart rate is 109, respiratory rate is 18, oximetry is 99 on 2 liters, blood pressure 128/72. LUNGS: Remarkable for wheezing. He did not tolerate the BiPAP last night. He hated the mask. I reviewed his sleep study of 2014, it showed 14 cm of water pressure eliminated his events. LUNGS: He was wheezing a little bit when I evaluated him today. HEART: Regular rhythm. ABDOMEN: Abdomen is soft. EXTREMITIES: Without asymmetry. One blood culture is positive for Staph, 2 blood cultures from the are negative so far. Urine c ultures negative. IMPRESSION: 1. Obesity. 2. Noncompliance with CPAP for the last couple years. He says he wore CPAP for a year, but had not worn it in a couple of years. 3. Diastolic heart failure. 4. Recurrent atrial fibrillation. 5. History of gastrointestinal bleeding. 6. Hematuria. He has a Raymundo in place. Anticoagulants are on hold. 7. History of coronary disease. 8. Probable noncardiac chest pain. He had bronchitis recently. 9. History of defibrillator. His weakness and deconditioning is a big factor. Hopefully, he will be compliant with CPAP at night. Try going with a lower pressure, just to see if this will improve compliance.
[2017-09-15] MEDS: Furosemide 40 MG/4 ML VIAL SLOW IVP SCH (14:25)
--- NOTE | 2017-09-15 15:47 | PDOC.PN ---
- Subjective Encounter Start Date: 09/15/17 Encounter Start Time: 10:20 Pt seen for followup re: hypotension. c/o chest pain. Reports SOBOE. Has hematuria. No nausea or vomiting. No fevers or chills. - Objective MAR Reviewed: Yes Vital Signs & Weight: Vital Signs (12 hours) Temp Pulse Resp BP Pulse Ox 09/15/17 15:23 97.5 F L 110 H 18 109/61 98 09/15/17 11:21 97.3 F L 109 H 18 128/72 99 09/15/17 08:00 97.3 F L 109 H 18 99 09/15/17 07:37 97.1 F L 99 19 123/69 100 09/15/17 04:00 98.0 F 90 22 H 108/67 97 Weight Weight 271 lb 4.8 oz I&O: 09/14/17 09/15/17 09/16/17 06:59 06:59 06:59 Intake Total 700 2826 Output Total 875 Balance 700 1951 Result Diagrams: 09/15/17 03:50 09/15/17 03:50 Additional Labs: Accuchecks 09/15/17 09/15/17 09/14/17 10:40 03:57 22:07 POC Glucose 104 87 87 09/14/17 16:11 POC Glucose 92 EKG Reviewed by me: Yes (Tele: diogo macias) Phys Exam - Physical Examination Obese HEENT: moist MMs, sclera anicteric, oral pharynx no lesions, 2+ tonsils Neck: no nodes, supple, full ROM JVD Respiratory: no wheezing, no rhonchi Timbo crackles Cardiovascular: no rub, irregular S1, S2 Gastrointestinal: soft, non-tender, no distention, positive bowel sounds Musculoskeletal: edema present Neurological: moves all 4 limbs Psychiatric: normal affect Deviation from normal: Oriented to person and place, not to time Dx/Plan (1) Hypotension Status: Acute Comment: Improving. Continue antibiotics for possible infection. (2) Hematuria Code(s): R31.9 - HEMATURIA, UNSPECIFIED Status: Acute Comment: Lovenox is on hold (3) Elevated troponin I level Code(s): R74.8 - ABNORMAL LEVELS OF OTHER SERUM ENZYMES Status: Acute Comment: demand ischemia vs. sepsis. 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 Diabetes mellitus complication status: with unspecified complications Qualified Code(s) : E11.8 - Type 2 diabetes mellitus with unspecified complications Comment: Controlled (5) HLD (hyperlipidemia) Code(s): E78.5 - HYPERLIPIDEMIA, UNSPECIFIED Status: Chronic Qualifiers: Hyperlipidemia type: unspecified Qualified Code(s): E78.5 - Hyperlipidemia , unspecified Comment: Continue Statin (6) H/O cirrhosis Code(s): Z87.19 - PERSONAL HISTORY OF OTHER DISEASES OF THE DIGESTIVE SYSTEM Status: Chronic (7) HTN (hypertension) Code(s): I10 - ESSENTIAL (PRIMARY) HYPERTENSION Status: Chronic Qualifiers: Hypertension type: essential hypertension Qualified Code(s): I10 - Essential (primary) hypertension Comment: Hold antihypertensives due to hypotension (8) Hypothyroidism Code(s): E03.9 - HYPOTHYROIDISM, UNSPECIFIED Status: Chronic Qualifiers: Hypothyroidism type: unspecified Qualified Code(s): E03.9 - Hypothyroidism , unspecified Comment: Repeat thyroid profile in 6-8 weeks. fT4 normal, fT3 low (9) Paroxysmal atrial fibrillation Code(s): I48.0 - PAROXYSMAL ATRIAL FIBRILLATION Status: Chronic - Plan plan discussed w/ family * . Review of Systems - Review of Systems Constitutional: weakness. negative: fever, chills, sweats, malaise Respiratory: Shortness of Breath, SOB with Excertion. negative: Cough, Pleuritic Pain, Wheezing Cardiovascular: chest pain. negative: palpitations, orthopnea, paroxysmal nocturnal dyspnea, edema, light headedness Gastrointestinal: negative: Nausea, Vomiting, Abdominal Pain, Diarrhea, Constipation, Melena, Hematochezia Genitourinary: Hematuria. negative: Dysuria, Frequency, Incontinence, Retention Musculoskeletal: negative: Neck Pain, Shoulder Pain, Arm Pain, Back Pain, Hand Pain, Leg Pain, Foot Pain Skin: negative: Rash, Lesions, Homar, Bruising - Medications/Allergies Allergies/Adverse Reactions: Allergies Allergy/AdvReac Type Severity Reaction Status Date / Time ciprofloxacin [From Cipro] Allergy Severe Anaphylaxis Verified 09/05/17 00:54 ciprofloxacin HCl Allergy Unknown Verified 09/05/17 00:54 [From Cipro] Medications: Current Medications Acetaminophen (Tylenol) 650 mg PO Q6HR PRN PRN Reason: Pain Acetaminophen/Codeine Phosphate (Tylenol #3) 1 tab PO Q4H PRN PRN Reason: PAIN SCALE 1-5 Acetaminophen/Codeine Phosphate (Tylenol #3) 2 tab PO Q4H PRN PRN Reason: PAIN SCALE 6-10 Last Admin: 09/13/17 20:50 Dose: 2 tab Amiodarone HCl (Cordarone) 400 mg PO TID [facility] Last Admin: 09/15/17 14:25 Dose: 400 mg Aspirin (Ecotrin) 81 mg PO QPM [facility] Last Admin: 09/14/17 19:59 Dose: 81 mg Atorvastatin Calcium (Lipitor) 40 mg PO HS [facility] Last Admin: 09/14/17 19:59 Dose: 40 mg Cholecalciferol (Vitamin D3) 2,000 units PO DAILY [facility] Last Admin: 09/15/17 07:57 Dose: 2,000 units Cyanocobalamin (Vitamin B-12) 2,000 mcg PO DAILY [facility] Last Admin: 09/15/17 07:58 Dose: 2,000 mcg Famotidine (Pepcid) 20 mg PO QAM [facility] Last Admin: 09/15/17 07:57 Dose: 20 mg Ferrous Sulfate (Feosol) 325 mg PO DAILY [facility] Last Admin: 09/15/17 07:58 Dose: 325 mg Furosemide (Lasix) 40 mg SLOW IVP 0600,1400 [facility] Last Admin: 09/15/17 14:25 Dose: 40 mg Cefepime HCl 2 gm/ Sodium (Chloride) 100 mls @ 200 mls/hr IVPB 1200,2359 [facility] Last Admin: 09/15/17 11:18 Dose: 100 mls Sodium Chloride (Normal Saline 0.9%) 1,000 mls @ 100 mls/hr IV .Q10H [facility] Last Admin: 09/15/17 07:56 Dose: 1,000 mls Vancomycin HCl 1.25 gm/ Sodium (Chloride) 250 mls @ 166.667 mls/hr IVPB 0100, 1300 [facility] Last Admin: 09/15/17 12:59 Dose: Not Given Levothyroxine Sodium (Synthroid) 100 mcg PO 0600 [facility] Last Admin: 09/15/17 06:45 Dose: 100 mcg Miscellaneous Medication (Pharmacy To Dose) 1 each IVPB ONE PRN PRN Reason: Pharmacy to dose Stop: 09/23/17 23:34 Nitroglycerin (Nitrostat) 0.4 mg PO Q5MIN PRN PRN Reason: Chest Pain Potassium Chloride (K-Dur) 20 meq PO QAM [facility] Last Admin: 09/15/17 07:57 Dose: 20 meq Sodium Chloride (Flush - Normal Saline) 10 ml IVF Q12HR [facility] Last Admin: 09/15/17 07:59 Dose: 10 ml Sodium Chloride (Flush - Normal Saline) 10 ml IVF PRN PRN PRN Reason: Saline Flush
--- NOTE | 2017-09-15 17:11 | EKG ---
Test Reason : STAT Blood Pressure : / mmHG Vent. Rate : 101 BPM Atrial Rate : 110 BPM P-R Int : 000 ms QRS Dur : 112 ms QT Int : 358 ms P-R-T Axes : 000 -56 234 degrees QTc Int : 464 ms Atrial fibrillation with rapid ventricular response Left axis deviation Abnormal ECG When compared with ECG of 04-SEP-2017 17:40, (Unconfirmed) Atrial fibrillation has replaced Sinus rhythm Confirmed by ADRIANNE LOUIS, SFlora (4) on 09/15/2017 5:11:40 PM Referred By: RAYMOND Confirmed By:DR. Hao SILVER MD
--- NOTE | 2017-09-15 17:12 | EKG ---
Test Reason : Blood Pressure : / mmHG Vent. Rate : 086 BPM Atrial Rate : 079 BPM P-R Int : 000 ms QRS Dur : 116 ms QT Int : 404 ms P-R-T Axes : 000 -30 243 degrees QTc Int : 483 ms Atrial fibrillation Left axis deviation Low voltage QRS Prolonged QT Abnormal ECG When compared with ECG of 14-SEP-2017 00:52, (Unconfirmed) No significant change was found Confirmed by ADRIANNE LOUIS, . SFlora (4) on 09/15/2017 5:12:20 PM Referred By: MILY Confirmed By:DR. Hao SILVER MD
--- NOTE | 2017-09-15 17:12 | EKG ---
Test Reason : CODE GREEN Blood Pressure : / mmHG Vent. Rate : 090 BPM Atrial Rate : 083 BPM P-R Int : 000 ms QRS Dur : 114 ms QT Int : 382 ms P-R-T Axes : 000 -48 255 degrees QTc Int : 467 ms Atrial fibrillation Left anterior fascicular block Prolonged QT Abnormal ECG When compared with ECG of 13-SEP-2017 18:08, (Unconfirmed) No significant change was found Confirmed by ADRIANNE LOUIS, . SFlora (4) on 09/15/2017 5:12:08 PM Referred By: RAYMOND Confirmed By:DR. Hao SILVER MD
--- NOTE | 2017-09-15 17:13 | EKG ---
Test Reason : CP Blood Pressure : / mmHG Vent. Rate : 091 BPM Atrial Rate : 084 BPM P-R Int : 000 ms QRS Dur : 116 ms QT Int : 392 ms P-R-T Axes : 000 -39 240 degrees QTc Int : 482 ms Atrial fibrillation Left axis deviation Prolonged QT Abnormal ECG When compared with ECG of 14-SEP-2017 07:57, (Unconfirmed) No significant change was found Confirmed by ADRIANNE LOUIS, SFlora ([id number]) on 09/15/2017 5:12:45 PM Referred By: RAYMOND Confirmed By:DR. Hao SILVER MD
[2017-09-15] MEDS: Atorvastatin Calcium 40 MG TAB PO SCH (21:18)
[2017-09-15] MEDS: Aspirin 81 mg Enteric Coated Tablet PO SCH (21:18)
[2017-09-16] MEDS: Cefepime 2 GM in Sodium Chloride 0.9% 100 ML IVPB SCH ×3 (00:30→23:11)
[2017-09-16] MEDS: Vancomycin HCl 1.25 GM in Sodium Chloride 0.9% 250 ML 250 ML IVPB SCH ×2 (01:14→12:12)
[2017-09-16] MEDS: Sodium Chloride 0.9% 1,000 ML IV SCH ×3 (05:31→23:12)
[2017-09-16] MEDS: Furosemide 40 MG/4 ML VIAL SLOW IVP SCH ×2 (05:32→12:12)
[2017-09-16] MEDS: Levothyroxine Sodium 100 MCG TAB PO SCH (05:32)
[2017-09-16 05:50] LABS: #Lymphocytes 0.8 thou/uL (1.20-3.40); #Neutrophils 9.2 thou/uL (1.40-6.50); %Basophils 0.1 % (0.0-1.0); %Eosinophils 0.3 % (0.0-10.0); %Lymphocytes 7.6 % (21.0-51.0); %Monocytes 9.2 % (0.0-10.0); %Neutrophils 82.8 % (42.0-75.0); Hemoglobin 13.3 g/dL (14.0-18.0); Mean Corpuscular HGB CONC 33.3 g/dL (32.0-36.0); Mean Corpuscular Hemoglobin 32.5 pg (27.0-31.0); Mean Corpuscular Volume 97.4 fl (80.0-94.0); Mean Platelet Volume 7.5 fL (7.4-10.4); Platelet Count 199 thou/uL (130-400); RBC Distribution Width 13.5 % (11.5-14.5); Red Blood Cell (RBC) Count 4.08 mill/uL (4.70-6.10); White Blood Cell (WBC) Count 11.2 thou/uL (4.8-10.8)
[2017-09-16 05:59] LABS: Anion Gap 11 mmol/L (10-20); BUN (Urea Nitrogen) 18 mg/dL (8.4-25.7); Calc. Creatinine Clearance 147 mL/min (70-130); Calcium 8.1 mg/dL (7.8-10.44); Carbon Dioxide 20 mmol/L (23-31); Chloride 112 mmol/L (98-107); Estimated GFR-MDRD Greater than 90; Glucose 138 mg/dL (80-115); Potassium 3.9 mmol/L (3.5-5.1); Sodium 139 mmol/L (136-145)
[2017-09-16 07:34] LABS: INR-International Normal Ratio 1.2; Prothrombin Time 15.4 SEC (12.0-14.7)
[2017-09-16 07:35] LABS: PTT 44.3 SEC (22.9-36.1)
[2017-09-16] MEDS: Potassium Chloride 20 MEQ TAB PO SCH (07:45)
[2017-09-16] MEDS: Amiodarone 200 MG TAB PO SCH ×3 (07:45→20:50)
[2017-09-16] MEDS: Famotidine 20 MG TAB PO SCH (07:46)
[2017-09-16] MEDS: Ferrous Sulfate 325 MG TAB PO SCH (07:46)
[2017-09-16] MEDS: Cyanocobalamin (Vitamin B-12) 1,000 MCG TAB PO SCH (07:46)
--- NOTE | 2017-09-16 09:47 | PRG ---
DATE OF SERVICE: 09/16/2017 SUBJECTIVE: Mr. Subramanian is getting ready to go downstairs for a paracentesis. PHYSICAL EXAMINATION: VITAL SIGNS: His blood pressure is 115/73, earlier it was in the high 90s systolic when I went in th e room on the automatic cuff, pulse is 110, it is atrial fibrillation. LUNGS: Clear. CARDIAC: Irregularly, irregular. ABDOMEN: Soft, nontender. EXTREMITIES: Mild edema. GENITOURINARY: The patient is making good urine output. ASSESSMENT: 1. Congestive heart failure, diastolic. 2. Atrial fibrillation. 3. Coronary artery disease. 4. History of gastrointestinal bleeds. ADDENDUM: 1. The gross hematuria has improved. 2. Amiodarone. 3. If he maintains atrial fibrillation, we would recommend transesophageal echo and cardioversion. We will continue to follow with you.
--- NOTE | 2017-09-16 12:12 | ULT ---
ABDOMINAL ULTRASOUND LIMITED: Clinical history: Abdominal pain. FINDINGS: Patient presents for evaluation to perform paracentesis. Under real-time visualization the quadrants of the abdomen were performed which reveal scant ascites within the right lower quadrant. There is no t a safe window for percutaneous placement of needle due to very small volume of ascites with intersp ersed bowel within the region of small volume ascites. IMPRESSION: Minimal ascites localizing to right lower abdomen, without sufficient volume for performance of parac entesis at this time. As indicated, imaging re-evaluation may be obtained should patient's symptoms p rogress. POS: PRAVEENA
--- NOTE | 2017-09-16 14:33 | PQF ---
DATE: 09-16-17 ATTN: DR. HYACINTH ANDRADE Please exercise your independent, professional judgment in responding to the clarification form. Clinical indicators are provided on the bottom of this form for your review Please check appropriate box(s) to clarify if the following diagnosis has been ruled in or ruled out: SEVERE SEPSIS [ ] Ruled in diagnosis [ ] Continue to treat [ ] Resolved [ ] Ruled out diagnosis [ X ] Other diagnosis Sepsis [ ] Unable to determine In addition, please specify: Present on Admission (POA): [ X ] Yes [ ] No [ ] Unable to determine For continuity of documentation, please document condition throughout progress notes and discharge summary. Thank You. CLINICAL INDICATORS - SIGNS / SYMPTOMS / LABS EVENT NOTE DR. PEÑA 09-14-17: HYPOTENSION, CONCERN FOR POSSIBLE SBP? CONCERN FOR SEPSIS: HYPOTENSION, TACHYCARDIA, PNA PN DR. ANDRADE 09-14-17: HYPOTENSION, CONTINUE IV ANTIBIOTICS FOR POSSIBLE SEPSIS ( SUSPECT SOURCE OF INFECTION LUNG) CONSULT NOTE DR. CHEN 09-14-17: THE PATIENT DEVELOPED INCREASING SIGNS OF SEPSIS, SEVERE SEPSIS, BACTEREMIA WITH GRAM POSITIVE COCCI WBC: 09-13-17: 11.9 09-14-17: 19.9 09-15-17: 11.7 09-16-17: 11.2 BANDS: 09-14-17: 16 PULSE: 09-13-17: 103, 106, 106 09-14-17: 109, 103, 101, 105 09-15-17: 101, 109, 110, 115 RISK FACTORS: EVENT NOTE DR. PEÑA 09-14-17: HYPOTENSION, CONCERN FOR POSSIBLE SBP? CONCERN FOR SEPSIS: HYPOTENSION, TACHYCARDIA, PNA CONSULT NOTE DR. CHEN 09-14-17: THE PATIENT DEVELOPED INCREASING SIGNS OF SEPSIS, SEVERE SEPSIS, BACTEREMIA WITH GRAM POSITIVE COCCI TREATMENTS: (MAR) IVF, MAXIPIME, VANCOMYCIN (This form is maintained as a part of the permanent medical record) 2014 [employer] All Rights Reserved BONG [email or web address] Office: [phone] [facility] CENTERSabiha
--- NOTE | 2017-09-16 14:48 | PQF ---
DATE: 09-16-17 ATTN : DR. HYACINTH ANDRADE Please exercise your independent, professional judgment in responding to the clarification form. Clinical indicators are provided on the bottom of this form for your review Please check appropriate box(s): [ ] Demand Ischemia [ ] NSTEMI [ ] AMI Type II [ ] Other diagnosis [ X ] Unable to determine In addition, please specify: Present on Admission (POA): [ ] Yes [ ] No [ ] Unable to determine CLINICAL INDICATORS - SIGNS / SYMPTOMS / LABS H&P: CHEST PAIN, GIVEN HIS SIGNIFICANT RISK FACTORS WELL PREVIOUS HISTORY OF CAD, HE WILL BE ADMITTED TO HOSPITAL IN OBS STATUS ON TELEMETRY UNIT. HX OF CAD, DIASTOLIC DYSFUNCTION, CHRONIC ELEVATED TROPONIN I, HTN, DM 2, PAROXYSMAL A FIB PN DR. ANDRADE 09-14-17: ACUTE ELEVATED TROPONIN: NSTEMI VS DEMAND ISCHEMIA VS SEPSIS CONSULT DR. CHEN 09-14-17: NON-ST ELEVATION VA TROP: 09-13-17: 0.091, 0.101, 0.132, 0.187 09-14-17: 0.931, 1.169 ER: C/O NAUSEA, DIAPHORESIS, DIZZINESS, LIGHTHEADEDNESS, DIARRHEA RISKS: H&P: CHEST PAIN, GIVEN HIS SIGNIFICANT RISK FACTORS WELL PREVIOUS HISTORY OF CAD, HE WILL BE ADMITTED TO HOSPITAL IN OBS STATUS ON TELEMETRY UNIT. HX OF CAD, DIASTOLIC DYSFUNCTION, CHRONIC ELEVATED TROPONIN I, HTN, DM 2, PAROXYSMAL A FIB TREATMENTS: H&P: HE REPORTS HE GOT SOME NITROGLYCERIN EARLIER TODAY WITH RELIEF OF THE PAIN, CARDIOLOGY CONSULT CONTINUOS MONITORING (This form is maintained as a part of the permanent medical record) 2014 [employer] All Rights Reserved BONG [email or web address] Office: [phone] [facility]ALSabiha
--- NOTE | 2017-09-16 15:00 | PQF ---
DATE: 09-16-17 ATTN: DR. HYACINTH ANDRADE Please exercise your independent, professional judgment in responding to the clarification form. Clinical indicators are provided on the bottom of this form for your review Please check appropriate box(s): HEART FAILURE: A. TYPE: [ ] Systolic / HFrEF [ X ] Diastolic / HFpEF [ ] Combined Systolic / Diastolic B. ACUITY [ ] Acute [ X ] Acute on Chronic [ ] Chronic [ ] Other diagnosis [ ] Unable to determine In addition, please specify: Present on Admission (POA): [ X ] Yes [ ] No [ ] Unable to determine For continuity of documentation, please document condition throughout progress notes and discharge summary. Thank You. CLINICAL INDICATORS - SIGNS / SYMPTOMS / LABS ER: HX OF CHF, BYPASS, CAD, A FIB, HTN, HYPERLIPIDEMIA, AAA H&P: HE WAS HOSPITALIZED AT THIS FACILITY FROM 09-05-17 TO 09-11-17 FOR NEAR SYNCOPE/DIZZINESS D/T VENTRICULAR TACHYCARDIA, ORTHOSTATIC HYPOTENSION, PHYSICAL DECONDITIONING, ACUTE ON CHRONIC DIASTOLIC HEART FAILURE EXACERBATION. CONSULT DR. BRICEÑO 09-15-17: CHF , DIASTOLIC, WORSENED, WE WEILL INCREASE AMIODARONE, IV DIURETIC CONSULT NOTE DR. BRICEÑO 09-16-17: CONGESTIVE HEART FAILURE, DIASTOLIC CXR 09-13-17: THERE IS MILD PULMONARY VASCULAR CONGESTION RISKS: ER: HX OF CHF, BYPASS, CAD, A FIB, HTN, HYPERLIPIDEMIA, AAA TREATMENTS: CARDIOLOGY CONSULT CONSULT DR. BRICEÑO 09-15-17: CHF , DIASTOLIC, WORSENED, WE WILL INCREASE AMIODARONE, IV DIURETIC (MAR) LASIX (This form is maintained as a part of the permanent medical record) 2014 [employer]. All Rights Reserved BONG [email or web address] Office: [phone] [facility]
--- NOTE | 2017-09-16 17:47 | PDOC.PN ---
- Subjective Encounter Start Date: 09/16/17 Encounter Start Time: 14:00 Pt seen for followup re: hypotension. Feels weak, denies chest pain. No nausea , vomiting or diarrhea. No abdo pain. - Objective MAR Reviewed: Yes Vital Signs & Weight: Vital Signs (12 hours) Temp Pulse Resp BP Pulse Ox 09/16/17 16:20 97.4 F L 116 H 18 127/74 95 09/16/17 12:25 97.6 F 113 H 20 105/67 94 L 09/16/17 08:05 96.7 F L 116 H 18 115/73 93 L 09/16/17 08:00 96.7 F L 116 H 18 93 L Weight Weight 272 lb 9.6 oz I&O: 09/15/17 09/16/17 09/17/17 06:59 06:59 06:59 Intake Total 2826 3278 Output Total 875 2300 Balance 1951 978 Result Diagrams: 09/16/17 05:07 09/16/17 05:07 Additional Labs: Accuchecks 09/16/17 09/16/17 09/15/17 12:20 04:09 22:15 POC Glucose 124 H 124 H 119 H EKG Reviewed by me: Yes (Tele: a. fib) Phys Exam - Physical Examination Obese HEENT: moist MMs, sclera anicteric, oral pharynx no lesions, 2+ tonsils Neck: no nodes, no JVD, supple, full ROM Respiratory: no wheezing, no rhonchi Bibasal crackles Cardiovascular: no rub, irregular S1, S2 Gastrointestinal: soft, non-tender, no distention, positive bowel sounds Musculoskeletal: edema present Neurological: moves all 4 limbs Psychiatric: normal affect Deviation from normal: Oriented to person and place, not to time Dx/Plan (1) Hypotension Status: Acute Comment: Improving. Continue antibiotics for possible infection. Could also be secondary to a. fib (2) Acute on chronic diastolic CHF, NYHA class 2 and ACC/AHA stage C Code(s): I50.33 - ACUTE ON CHRONIC DIASTOLIC (CONGESTIVE) HEART FAILURE Status : Acute Comment: continue IV furosemide (3) Elevated troponin I level Code(s): R74.8 - ABNORMAL LEVELS OF OTHER SERUM ENZYMES Status: Acute Comment: demand ischemia vs. sepsis, unable to determine exact etiology (4) DM2 (diabetes mellitus, type 2) Status: Chronic Qualifiers: Diabetes mellitus marine oil terminal superintendent insulin use: without long-term use Diabetes mellitus complication status: with unspecified complications Qualified Code(s) : E11.8 - Type 2 diabetes mellitus with unspecified complications Comment: Controlled (5) HLD (hyperlipidemia) Code(s): E78.5 - HYPERLIPIDEMIA, UNSPECIFIED Status: Chronic Qualifiers: Hyperlipidemia type: unspecified Qualified Code(s): E78.5 - Hyperlipidemia , unspecified Comment: on Statin (6) H/O cirrhosis Code(s): Z87.19 - PERSONAL HISTORY OF OTHER DISEASES OF THE DIGESTIVE SYSTEM Status: Chronic (7) HTN (hypertension) Code(s): I10 - ESSENTIAL (PRIMARY) HYPERTENSION Status: Chronic Qualifiers: Hypertension type: essential hypertension Qualified Code(s): I10 - Essential (primary) hypertension Comment: Hold antihypertensives due to hypotension (8) Hypothyroidism Code(s): E03.9 - HYPOTHYROIDISM, UNSPECIFIED Status: Chronic Qualifiers: Hypothyroidism type: unspecified Qualified Code(s): E03.9 - Hypothyroidism , unspecified Comment: Repeat thyroid profile in 6-8 weeks. fT4 normal, fT3 low (9) Paroxysmal atrial fibrillation Code(s): I48.0 - PAROXYSMAL ATRIAL FIBRILLATION Status: Chronic (10) Hematuria Code(s): R31.9 - HEMATURIA, UNSPECIFIED Status: Resolved Comment: Lovenox is on hold - Plan * . Review of Systems - Review of Systems Constitutional: weakness. negative: fever, chills, sweats, malaise Respiratory: Shortness of Breath, SOB with Excertion. negative: Cough, Pleuritic Pain, Wheezing Cardiovascular: orthopnea. negative: chest pain, palpitations, paroxysmal nocturnal dyspnea, edema, light headedness Gastrointestinal: negative: Nausea, Vomiting, Abdominal Pain, Diarrhea, Constipation, Melena, Hematochezia Genitourinary: negative: Dysuria, Frequency, Incontinence, Hematuria, Retention - Medications/Allergies Allergies/Adverse Reactions: Allergies Allergy/AdvReac Type Severity Reaction Status Date / Time ciprofloxacin [From Cipro] Allergy Severe Anaphylaxis Verified 09/05/17 00:54 ciprofloxacin HCl Allergy Unknown Verified 09/05/17 00:54 [From Cipro] Medications: Current Medications Acetaminophen (Tylenol) 650 mg PO Q6HR PRN PRN Reason: Pain Acetaminophen/Codeine Phosphate (Tylenol #3) 1 tab PO Q4H PRN PRN Reason: PAIN SCALE 1-5 Acetaminophen/Codeine Phosphate (Tylenol #3) 2 tab PO Q4H PRN PRN Reason: PAIN SCALE 6-10 Last Admin: 09/13/17 20:50 Dose: 2 tab Amiodarone HCl (Cordarone) 400 mg PO TID [facility] Last Admin: 09/16/17 16:15 Dose: 400 mg Aspirin (Ecotrin) 81 mg PO QPM [facility] Last Admin: 09/15/17 21:18 Dose: 81 mg Atorvastatin Calcium (Lipitor) 40 mg PO HS [facility] Last Admin: 09/15/17 21:18 Dose: 40 mg Cholecalciferol (Vitamin D3) 2,000 units PO DAILY [facility] Last Admin: 09/16/17 07:45 Dose: Not Given Cyanocobalamin (Vitamin B-12) 2,000 mcg PO DAILY [facility] Last Admin: 09/16/17 07:46 Dose: Not Given Famotidine (Pepcid) 20 mg PO QAM [facility] Last Admin: 09/16/17 07:46 Dose: Not Given Ferrous Sulfate (Feosol) 325 mg PO DAILY [facility] Last Admin: 09/16/17 07:46 Dose: Not Given Furosemide (Lasix) 40 mg SLOW IVP 0600,1400 [facility] Last Admin: 09/16/17 12:12 Dose: 40 mg Cefepime HCl 2 gm/ Sodium (Chloride) 100 mls @ 200 mls/hr IVPB 1200,2359 [facility] Last Admin: 09/16/17 12:11 Dose: 100 mls Sodium Chloride (Normal Saline 0.9%) 1,000 mls @ 100 mls/hr IV .Q10H [facility] Last Admin: 09/16/17 16:16 Dose: 1,000 mls Vancomycin HCl 1.25 gm/ Sodium (Chloride) 250 mls @ 166.667 mls/hr IVPB 0100, 1300 [facility] Last Admin: 09/16/17 12:12 Dose: 250 mls Levothyroxine Sodium (Synthroid) 100 mcg PO 0600 [facility] Last Admin: 09/16/17 05:32 Dose: 100 mcg Miscellaneous Medication (Pharmacy To Dose) 1 each IVPB ONE PRN PRN Reason: Pharmacy to dose Stop: 09/23/17 23:34 Nitroglycerin (Nitrostat) 0.4 mg PO Q5MIN PRN PRN Reason: Chest Pain Potassium Chloride (K-Dur) 20 meq PO QAM [facility] Last Admin: 09/16/17 07:45 Dose: 20 meq Sodium Chloride (Flush - Normal Saline) 10 ml IVF Q12HR [facility] Last Admin: 09/16/17 07:45 Dose: 10 ml Sodium Chloride (Flush - Normal Saline) 10 ml IVF PRN PRN PRN Reason: Saline Flush
[2017-09-16] MEDS: Aspirin 81 mg Enteric Coated Tablet PO SCH (20:49)
[2017-09-16] MEDS: Atorvastatin Calcium 40 MG TAB PO SCH (20:50)
[2017-09-16] MEDS: Acetaminophen/Codeine 30-300mg Tablet PO PRN (20:54)
[2017-09-17] MEDS: Vancomycin HCl 1.25 GM in Sodium Chloride 0.9% 250 ML 250 ML IVPB SCH (00:26)
[2017-09-17 00:39] LABS: Vancomycin, Trough 27.6 ug/mL
[2017-09-17] MEDS ORDERED: VANCOMYCIN IVPB PRN (01:00)
[2017-09-17] MEDS: Acetaminophen/Codeine 30-300mg Tablet PO PRN ×2 (04:45→20:29)
[2017-09-17] MEDS: Levothyroxine Sodium 100 MCG TAB PO SCH (05:18)
[2017-09-17] MEDS: Furosemide 40 MG/4 ML VIAL SLOW IVP SCH ×2 (05:18→12:21)
[2017-09-17] MEDS: Potassium Chloride 20 MEQ TAB PO SCH (08:02)
[2017-09-17] MEDS: Amiodarone 200 MG TAB PO SCH ×3 (08:02→20:25)
[2017-09-17] MEDS: Sodium Chloride 0.9% 1,000 ML IV SCH ×3 (08:03→23:30)
[2017-09-17] MEDS: Famotidine 20 MG TAB PO SCH ×2 (08:03→20:25)
[2017-09-17] MEDS: Cyanocobalamin (Vitamin B-12) 1,000 MCG TAB PO SCH (08:03)
[2017-09-17] MEDS: Ferrous Sulfate 325 MG TAB PO SCH (08:03)
[2017-09-17] MEDS ORDERED: Enoxaparin Sodium 100 MG/ML SYRINGE SC SCH (10:00)
--- NOTE | 2017-09-17 10:02 | PRG ---
DATE OF SERVICE: 09/17/2017 Mr. Subramanian is weak and fatigued, looks less awake today. He is not feeling well, his breathing is no t a whole lot better. PHYSICAL EXAMINATION: VITAL SIGNS: Blood pressure earlier was 101/69, now it is in the low 90s systolic. Pulse 110, it is irregular, it is atrial fibrillation. LUNGS: Clear. CARDIAC: Irregular, irregular. ABDOMEN: Soft, nontender. EXTREMITIES: Only minimal edema now. The most recent creatinine is 0.8. Attempted paracentesis was done yesterday, but there was not enou gh fluid to drain. Therefore, the paracentesis was not done. In general the patient has not been doing well. ASSESSMENT: 1. Congestive heart failure. 2. Atrial fibrillation. 3. Coronary artery disease. 4. Recent urinary infection. 5. Relatively hypotensive. 6. History of gastrointestinal bleeding with a prolonged anticoagulation. 7. Hematuria has resolved. PLAN: Recommend cardioversion. Will need transesophageal echo first. I discussed risks including i njury to the mouth, esophagus, and stroke. He has been maintaining atrial fibrillation despite incre asing the amiodarone dose. Hopefully, he will be able to tolerate anticoagulation at least for a few weeks. We will start back on the enoxaparin tonight. The patient understands risks and wished to p roceed. Overall, prognosis has not been favorable. He has not really been improving much, not doing well. Family understands.
--- NOTE | 2017-09-17 12:12 | PDOC.PN ---
- Subjective Encounter Start Date: 09/17/17 Encounter Start Time: 10:00 continues to be in atrial fibrillation with HR greater than 100 no other acute night events or new symptoms otherwise - Objective Vital Signs & Weight: Vital Signs (12 hours) Temp Pulse Resp BP BP Pulse Ox 09/17/17 11:53 96.4 F L 107 H 18 107/66 95 09/17/17 08:00 98.1 F 115 H 13 93 L 09/17/17 07:46 98.1 F 115 H 13 101/69 93 L 09/17/17 03:51 117 H 19 103/66 92 L Weight Weight 275 lb 12.8 oz I&O: 09/16/17 09/17/17 09/18/17 06:59 06:59 06:59 Intake Total 3278 2150 Output Total 2300 2800 Balance 978 -650 Result Diagrams: 09/16/17 05:07 09/16/17 05:07 Additional Labs: Accuchecks 09/17/17 09/17/17 09/16/17 04:12 00:13 22:06 POC Glucose 130 H 130 H 175 H 09/16/17 09/16/17 18:31 12:20 POC Glucose 197 H 124 H Phys Exam - Physical Examination Constitutional: NAD HEENT: PERRLA, moist MMs, sclera anicteric Neck: no JVD, supple Respiratory: no wheezing, no rales, no rhonchi Cardiovascular: no rub Gastrointestinal: soft, non-tender Musculoskeletal: pulses present Neurological: non-focal, moves all 4 limbs Psychiatric: A&O x 3 Skin: cap refill <2 seconds Dx/Plan (1) Atrial fibrillation Code(s): I48.91 - UNSPECIFIED ATRIAL FIBRILLATION Status: Acute (2) Acute on chronic diastolic CHF, NYHA class 2 and ACC/AHA stage C Code(s): I50.33 - ACUTE ON CHRONIC DIASTOLIC (CONGESTIVE) HEART FAILURE Status : Acute Comment: continue IV furosemide (3) Elevated troponin I level Code(s): R74.8 - ABNORMAL LEVELS OF OTHER SERUM ENZYMES Status: Acute Comment: demand ischemia vs. sepsis, unable to determine exact etiology (4) Hypotension Status: Acute Comment: Improving. Continue antibiotics for possible infection. Could also be secondary to a. fib (5) Physical deconditioning Code(s): R53.81 - OTHER MALAISE Status: Acute - Plan cont current plan of care, plan discussed w/ family, continue antibiotics * . Will undergo echo today lovenox tonight will cardiovert per cardiology
[2017-09-17] MEDS: Cefepime 2 GM in Sodium Chloride 0.9% 100 ML IVPB SCH (12:21)
[2017-09-17 12:48] LABS: Vancomycin, Random 30.5 ug/mL (See Comment)
--- NOTE | 2017-09-17 14:26 | EKG ---
Test Reason : CHEST PAIN Blood Pressure : / mmHG Vent. Rate : 104 BPM Atrial Rate : 214 BPM P-R Int : 000 ms QRS Dur : 114 ms QT Int : 370 ms P-R-T Axes : 000 -46 211 degrees QTc Int : 486 ms Atrial fibrillation with rapid ventricular response with premature ventricular or aberrantly conducte d complexes Left anterior fascicular block No STEMI Abnormal ECG Confirmed by KAMILLE LOUIS, ROSAURA ([id number]), editorial specialist JOSE LUIS REYES ([id number]) on 09/17/2017 2:26:44 PM Referred By: Confirmed By:ROSAURA SIMENTAL MD
[2017-09-17] MEDS: Enoxaparin Sodium 100 MG/ML SYRINGE SC SCH (20:25)
[2017-09-17] MEDS: Aspirin 81 mg Enteric Coated Tablet PO SCH (20:25)
[2017-09-17] MEDS: Atorvastatin Calcium 40 MG TAB PO SCH (20:25)
[2017-09-18] MEDS: Cefepime 2 GM in Sodium Chloride 0.9% 100 ML IVPB SCH ×2 (00:10→13:12)
[2017-09-18] MEDS: Levothyroxine Sodium 100 MCG TAB PO SCH (05:44)
[2017-09-18] MEDS: Furosemide 40 MG/4 ML VIAL SLOW IVP SCH ×2 (05:44→13:17)
[2017-09-18] MEDS ORDERED: Propofol 1,000 MG/100 ML VIAL IV ONE (11:44)
[2017-09-18] MEDS ORDERED: Vancomycin HCl 1.25 GM in Sodium Chloride 0.9% 250 ML 250 ML IVPB SCH (13:00)
[2017-09-18] MEDS: Cyanocobalamin (Vitamin B-12) 1,000 MCG TAB PO SCH (13:16)
[2017-09-18] MEDS: Famotidine 20 MG TAB PO SCH ×2 (13:16→20:33)
[2017-09-18] MEDS: Potassium Chloride 20 MEQ TAB PO SCH (13:18)
[2017-09-18] MEDS: Ferrous Sulfate 325 MG TAB PO SCH (13:18)
[2017-09-18] MEDS: Enoxaparin Sodium 100 MG/ML SYRINGE SC SCH (13:18)
[2017-09-18] MEDS: Amiodarone 200 MG TAB PO SCH ×3 (13:18→20:33)
[2017-09-18] MEDS: Sodium Chloride 0.9% 1,000 ML IV SCH (13:27)
--- NOTE | 2017-09-18 13:52 | PDOC.PN ---
- Subjective Encounter Start Date: 09/18/17 Encounter Start Time: 14:00 Pt seen and examined, chart reviewed in its entirety. This is my first visit with this patient Pt to [facility] and DC cardioversion earlier, no complications no f/C, no n/V/d/c, SOB improved, no CP overnight No acute events, no new complaints all systems reviewed and neg x as above - Objective MAR Reviewed: Yes Vital Signs & Weight: Vital Signs (12 hours) Temp Pulse Resp BP BP Pulse Ox 09/18/17 13:02 98.0 F 86 16 109/65 92 L 09/18/17 08:00 96.8 F L 113 H 16 110/72 91 L 09/18/17 07:50 96.8 F L 113 H 16 91 L 09/18/17 04:00 95 09/18/17 03:56 97.0 F L 112 H 18 111/77 97 Weight Weight 278 lb 6.4 oz I&O: 09/17/17 09/18/17 09/19/17 06:59 06:59 06:59 Intake Total 2150 1220 670 Output Total 2800 1500 900 Balance -650 -280 -230 Result Diagrams: 09/16/17 05:07 09/16/17 05:07 Additional Labs: Accuchecks 09/18/17 09/18/17 09/17/17 13:07 05:56 22:06 POC Glucose 124 H 131 H 157 H 09/17/17 16:47 POC Glucose 143 H Radiology Reviewed by me: Yes EKG Reviewed by me: Yes Phys Exam - Physical Examination Constitutional: NAD HEENT: PERRLA, moist MMs, sclera anicteric, oral pharynx no lesions Neck: no nodes, no JVD, supple, full ROM Respiratory: no wheezing, no rales, no rhonchi, clear to auscultation bilateral Cardiovascular: RRR, no significant murmur, no rub Gastrointestinal: soft, non-tender, no distention, positive bowel sounds Musculoskeletal: pulses present, edema present Neurological: non-focal, normal sensation, moves all 4 limbs Lymphatic: no nodes Psychiatric: normal affect, A&O x 3 Skin: no rash, normal turgor, cap refill <2 seconds Dx/Plan (1) Acute on chronic diastolic CHF, NYHA class 2 and ACC/AHA stage C Code(s): I50.33 - ACUTE ON CHRONIC DIASTOLIC (CONGESTIVE) HEART FAILURE Status : Acute Comment: continue IV furosemide (2) Atrial fibrillation Code(s): I48.91 - UNSPECIFIED ATRIAL FIBRILLATION Status: Acute Qualifiers: Atrial fibrillation type: paroxysmal Qualified Code(s): I48.0 - Paroxysmal atrial fibrillation Comment: S/p cardioversion, nowin NSR. Dr Bright following. continue to monitor (3) Elevated troponin I level Code(s): R74.8 - ABNORMAL LEVELS OF OTHER SERUM ENZYMES Status: Suspected Comment: demand ischemia vs. sepsis, unable to determine exact etiology (4) Hypotension Status: Acute Qualifiers: Hypotension type: other hypotension type Qualified Code(s): I95.89 - Other hypotension Comment: Improving. Continue antibiotics for possible infection. suspect to be secondary to a. fib (5) Hematuria Code(s): R31.9 - HEMATURIA, UNSPECIFIED Status: Resolved Comment: Lovenox is on hold (6) Orthostatic hypotension Code(s): I95.1 - ORTHOSTATIC HYPOTENSION Status: Acute Comment: monitor, check after cardioversion (7) Physical deconditioning Code(s): R53.81 - OTHER MALAISE Status: Acute (8) Anemia, iron deficiency Code(s): D50.9 - IRON DEFICIENCY ANEMIA, UNSPECIFIED Status: Chronic Qualifiers: Iron deficiency anemia type: inadequate dietary iron intake Qualified Code( s): D50.8 - Other iron deficiency anemias (9) CAD (coronary artery disease) Code(s): I25.10 - ATHSCL HEART DISEASE OF [place] CORONARY ARTERY W/O ANG PCTRS Status: Chronic Qualifiers: Coronary Disease-Associated Artery/Lesion type: bypass graft [place] vs. transplanted heart: [place] heart Associated angina: without angina Qualified Code(s): I25.810 - Atherosclerosis of coronary artery bypass graft(s) without angina pectoris (10) DM2 (diabetes mellitus, type 2) Status: Chronic Qualifiers: Diabetes mellitus mcc insulin use: without terminal supervisor use Diabetes mellitus complication status: with unspecified complications Qualified Code(s) : E11.8 - Type 2 diabetes mellitus with unspecified complications Comment: Controlled (11) H/O cirrhosis Code(s): Z87.19 - PERSONAL HISTORY OF OTHER DISEASES OF THE DIGESTIVE SYSTEM Status: Chronic (12) HLD (hyperlipidemia) Code(s): E78.5 - HYPERLIPIDEMIA, UNSPECIFIED Status: Chronic Qualifiers: Hyperlipidemia type: unspecified Qualified Code(s): E78.5 - Hyperlipidemia , unspecified Comment: on Statin (13) HTN (hypertension) Code(s): I10 - ESSENTIAL (PRIMARY) HYPERTENSION Status: Chronic Qualifiers: Hypertension type: essential hypertension Qualified Code(s): I10 - Essential (primary) hypertension Comment: Hold antihypertensives due to hypotension (14) Hypothyroidism Code(s): E03.9 - HYPOTHYROIDISM, UNSPECIFIED Status: Chronic Qualifiers: Hypothyroidism type: unspecified Qualified Code(s): E03.9 - Hypothyroidism , unspecified Comment: Repeat thyroid profile in 6-8 weeks. fT4 normal, fT3 low (15) JORDAN (obstructive sleep apnea) Code(s): G47.33 - OBSTRUCTIVE SLEEP APNEA (ADULT) (PEDIATRIC) Status: Chronic - Plan cont current plan of care, respiratory therapy, out of bed/ambulate * .
--- NOTE | 2017-09-18 14:36 | ECHO ---
TRANSESOPHAGEAL ECHOCARDIOGRAM: DATE OF PROCEDURE: 09/18/17 INDICATION: 72-year-old gentleman with paroxysmal atrial fibrillation. DESCRIPTION OF PROCEDURE: The patient was taken to the PACU. The patient was sedated by anesthesiology. A transesophageal probe was placed in the distal esophagus and stomach. Echocardiographic images were obtained. The transesophageal probe was removed. FINDINGS/IMPRESSION: 1. Decreased left ventricular systolic function. 2. Biatrial enlargement. 3. Left ventricle is mildly dilated. 4. Aortic valve leaflets are thickened with reduced leaflet excursion. 5. Moderate aortic stenosis. 6. Moderate mitral regurgitation. 7. Mild tricuspid regurgitation. 8. Defibrillator wires noted in the right ventricle. 9. Atherosclerotic debris in the descending aorta. 10. The left atrial appendage appears to be ligated no evidence of thrombus.
--- NOTE | 2017-09-18 14:45 | OP ---
CARDIOLOGY PROCEDURE NOTE: Date: 09/18/17 PROCEDURE: Electrical cardioversion. INDICATION: Persistent atrial fibrillation. DESCRIPTION OF PROCEDURE: The patient was taken to the recovery area in the fasting state. Transesophageal echo revealed no candis dence of formed thrombus. It appears likely that the patient actually had the left atrial appendage o ccluded with possible oversewing, but no evidence of an appendage. He was given 35 joules of direct c urrent synchronized energy through the defibrillator, which successfully converted him to sinus rhyth m. CONCLUSION: Successful cardioversion.
[2017-09-18] MEDS ORDERED: PROPOFOL 200 MG/20 ML VIAL ONE (15:10)
[2017-09-18] MEDS: Acetaminophen/Codeine 30-300mg Tablet PO PRN ×2 (15:47→20:31)
[2017-09-18] MEDS ORDERED: Insulin Regular 300 UNITS/3 ML VIAL SC PRN ×2 (17:51)
[2017-09-18] MEDS ORDERED: Dextrose 5% in Water 1,000 ML IV PRN (17:51)
[2017-09-18] MEDS ORDERED: Dextrose 50% Abboject 50 ML SYRINGE IVP PRN (17:51)
[2017-09-18] MEDS: Vancomycin HCl 750 MG in Sodium Chloride 0.9% 250 ML 250 ML IVPB SCH (17:58)
--- NOTE | 2017-09-18 18:33 | PRG ---
DATE OF SERVICE: 09/18/2017 SUBJECTIVE: Mr. Subramanian underwent cardioversion today. He says he is not feeling much different yet. He is still feeling short of breath. OBJECTIVE: VITAL SIGNS: Blood pressure 117/57, pulse 90. LUNGS: Clear. CARDIAC: Normal S1, normal S2. ABDOMEN: Soft, nontender. EXTREMITIES: There is only mild edema. ASSESSMENT: 1. Diastolic heart failure, appears stable. 2. Status post cardioversion. 3. Previous defibrillator implantation. PLAN: 1. Reduce the amiodarone to 400 mg twice a day. 2. Reduce diuretic dose. He is probably on the dry side now. 3. There is no evidence of any thrombus. We will cut the enoxaparin down to 80 mg every 12 hours. In the past, the patient has had bleeding with anticoagulation. Dr. Lacey did not see any communi cation between the left atrium and the appendage.
[2017-09-18] MEDS: Aspirin 81 mg Enteric Coated Tablet PO SCH (20:33)
[2017-09-18] MEDS: Atorvastatin Calcium 40 MG TAB PO SCH (20:33)
[2017-09-18] MEDS: Enoxaparin Sodium 80 MG/0.8 ML SYRINGE SC SCH (20:33)
[2017-09-19] MEDS: Cefepime 2 GM in Sodium Chloride 0.9% 100 ML IVPB SCH ×2 (00:30→12:24)
[2017-09-19] MEDS: Acetaminophen/Codeine 30-300mg Tablet PO PRN ×3 (04:17→20:44)
[2017-09-19 05:20] LABS: #Eosinphils 0.1 thou/uL (0.0-0.7); #Lymphocytes 0.7 thou/uL (1.20-3.40); #Monocytes 0.7 thou/uL (0.11-0.59); #Neutrophils 7.6 thou/uL (1.40-6.50); %Basophils 0.4 % (0.0-1.0); %Eosinophils 1.5 % (0.0-10.0); %Lymphocytes 7.7 % (21.0-51.0); %Neutrophils 82.5 % (42.0-75.0); Hemoglobin 12.8 g/dL (14.0-18.0); Mean Corpuscular HGB CONC 32.6 g/dL (32.0-36.0); Mean Corpuscular Hemoglobin 31.5 pg (27.0-31.0); Mean Corpuscular Volume 96.7 fl (80.0-94.0); Mean Platelet Volume 7.3 fL (7.4-10.4); Platelet Count 172 thou/uL (130-400); RBC Distribution Width 13.4 % (11.5-14.5); Red Blood Cell (RBC) Count 4.05 mill/uL (4.70-6.10); White Blood Cell (WBC) Count 9.3 thou/uL (4.8-10.8)
[2017-09-19 05:38] LABS: Anion Gap 10 mmol/L (10-20); BUN (Urea Nitrogen) 17 mg/dL (8.4-25.7); Calc. Creatinine Clearance 148 mL/min (70-130); Calcium 7.9 mg/dL (7.8-10.44); Carbon Dioxide 22 mmol/L (23-31); Chloride 108 mmol/L (98-107); Estimated GFR-MDRD Greater than 90; Glucose 153 mg/dL (80-115); Magnesium 1.6 mg/dL (1.6-2.6); Potassium 3.3 mmol/L (3.5-5.1); Sodium 137 mmol/L (136-145)
[2017-09-19] MEDS: Vancomycin HCl 750 MG in Sodium Chloride 0.9% 250 ML 250 ML IVPB SCH (05:55)
[2017-09-19] MEDS: Levothyroxine Sodium 100 MCG TAB PO SCH (05:56)
[2017-09-19] MEDS: Furosemide 40 MG TAB PO SCH (09:07)
[2017-09-19] MEDS: Famotidine 20 MG TAB PO SCH ×2 (09:08→20:42)
[2017-09-19] MEDS: Amiodarone 200 MG TAB PO SCH ×3 (09:08→21:30)
[2017-09-19] MEDS: Ferrous Sulfate 325 MG TAB PO SCH (09:09)
[2017-09-19] MEDS: Potassium Chloride 20 MEQ TAB PO SCH (09:09)
[2017-09-19] MEDS: Cyanocobalamin (Vitamin B-12) 1,000 MCG TAB PO SCH (09:09)
[2017-09-19] MEDS: Enoxaparin Sodium 80 MG/0.8 ML SYRINGE SC SCH ×2 (09:09→20:43)
--- NOTE | 2017-09-19 13:40 | PDOC.PN ---
- Subjective Encounter Start Date: 09/19/17 Encounter Start Time: 09:40 Pt more awake, alert, looks much better, no edema. ailyn meds well, limited movementwith PT earlier, they will return soon FNo f/C,no N/V/d/c, no CP, no orthopnea. Cards note reviewed, looks to be as dry as possible. awaiting insurance decision on IPR all systesm reviewed adn neg x as above - Objective MAR Reviewed: Yes Vital Signs & Weight: Vital Signs (12 hours) Temp Pulse Pulse Pulse Resp BP BP 09/19/17 09:55 76 84 132/60 132/59 L 09/19/17 08:32 85 121/61 09/19/17 07:33 97.2 F L 81 17 09/19/17 04:00 97.4 F L 91 17 BP BP Pulse Ox Pulse Ox 09/19/17 09:55 09/19/17 08:32 92 L 09/19/17 07:33 110/53 L 96 09/19/17 04:00 122/65 91 L Weight Weight 278 lb 6.4 oz I&O: 09/18/17 09/19/17 09/20/17 06:59 06:59 06:59 Intake Total 1220 2444 Output Total 1500 2000 Balance -280 444 Result Diagrams: 09/19/17 04:50 09/19/17 04:50 Additional Labs: Accuchecks 09/19/17 09/19/17 09/18/17 10:44 06:12 21:29 POC Glucose 155 H 139 H 244 H 09/18/17 16:31 POC Glucose 180 H Phys Exam - Physical Examination Constitutional: NAD HEENT: PERRLA, moist MMs, sclera anicteric, oral pharynx no lesions Neck: no nodes, no JVD, supple, full ROM Respiratory: no wheezing, no rhonchi, clear to auscultation bilateral fine bibasilar crackles Cardiovascular: RRR, no rub 3/6 [facility] [place] Gastrointestinal: soft, non-tender, no distention, positive bowel sounds Musculoskeletal: no edema Neurological: non-focal, normal sensation, moves all 4 limbs Lymphatic: no nodes Psychiatric: normal affect, A&O x 3 Skin: no rash, normal turgor, cap refill <2 seconds Dx/Plan (1) Acute on chronic diastolic CHF, NYHA class 2 and ACC/AHA stage C Code(s): I50.33 - ACUTE ON CHRONIC DIASTOLIC (CONGESTIVE) HEART FAILURE Status : Acute Comment: continue IV furosemide (2) Atrial fibrillation Code(s): I48.91 - UNSPECIFIED ATRIAL FIBRILLATION Status: Acute Qualifiers: Atrial fibrillation type: paroxysmal Qualified Code(s): I48.0 - Paroxysmal atrial fibrillation Comment: S/p cardioversion, nowin NSR. Dr Bright following. continue to monitor (3) Elevated troponin I level Code(s): R74.8 - ABNORMAL LEVELS OF OTHER SERUM ENZYMES Status: Suspected Comment: demand ischemia vs. sepsis, unable to determine exact etiology (4) Hypotension Status: Acute Qualifiers: Hypotension type: other hypotension type Qualified Code(s): I95.89 - Other hypotension Comment: Improving. Continue antibiotics for possible infection. suspect to be secondary to a. fib (5) Hematuria Code(s): R31.9 - HEMATURIA, UNSPECIFIED Status: Resolved Comment: Lovenox is on hold (6) Orthostatic hypotension Code(s): I95.1 - ORTHOSTATIC HYPOTENSION Status: Acute Comment: monitor, check after cardioversion (7) Physical deconditioning Code(s): R53.81 - OTHER MALAISE Status: Acute (8) Anemia, iron deficiency Code(s): D50.9 - IRON DEFICIENCY ANEMIA, UNSPECIFIED Status: Chronic Qualifiers: Iron deficiency anemia type: inadequate dietary iron intake Qualified Code( s): D50.8 - Other iron deficiency anemias (9) CAD (coronary artery disease) Code(s): I25.10 - ATHSCL HEART DISEASE OF [place] CORONARY ARTERY W/O ANG PCTRS Status: Chronic Qualifiers: Coronary Disease-Associated Artery/Lesion type: bypass graft [place] vs. transplanted heart: [place] heart Associated angina: without angina Qualified Code(s): I25.810 - Atherosclerosis of coronary artery bypass graft(s) without angina pectoris (10) DM2 (diabetes mellitus, type 2) Status: Chronic Qualifiers: Diabetes mellitus halfway insulin use: without halfway use Diabetes mellitus complication status: with unspecified complications Qualified Code(s) : E11.8 - Type 2 diabetes mellitus with unspecified complications Comment: Controlled (11) H/O cirrhosis Code(s): Z87.19 - PERSONAL HISTORY OF OTHER DISEASES OF THE DIGESTIVE SYSTEM Status: Chronic (12) HLD (hyperlipidemia) Code(s): E78.5 - HYPERLIPIDEMIA, UNSPECIFIED Status: Chronic Qualifiers: Hyperlipidemia type: unspecified Qualified Code(s): E78.5 - Hyperlipidemia , unspecified Comment: on Statin (13) HTN (hypertension) Code(s): I10 - ESSENTIAL (PRIMARY) HYPERTENSION Status: Chronic Qualifiers: Hypertension type: essential hypertension Qualified Code(s): I10 - Essential (primary) hypertension Comment: Hold antihypertensives due to hypotension (14) Hypothyroidism Code(s): E03.9 - HYPOTHYROIDISM, UNSPECIFIED Status: Chronic Qualifiers: Hypothyroidism type: unspecified Qualified Code(s): E03.9 - Hypothyroidism , unspecified Comment: Repeat thyroid profile in 6-8 weeks. fT4 normal, fT3 low (15) JORDAN (obstructive sleep apnea) Code(s): G47.33 - OBSTRUCTIVE SLEEP APNEA (ADULT) (PEDIATRIC) Status: Chronic - Plan cont current plan of care, plan discussed w/ family, PT/OT, out of bed/ambulate * . to IPR when approved
[2017-09-19 17:10] LABS: Bilirubin Negative (Negative); Blood, Urine Large (Negative); Clarity CLOUDY (Clear); Glucose, Urine (Dipstick) Negative (Negative); Leukocyte Small (Negative); Nitrite Negative (Negative); Protein, Urine (Dipstick) Trace mg/dL (Neg-Trace); Specific Gravity, Urine 1.016 (1.002-1.036); Urobilinogen 0.2 mg/dL (0.2-1.0); pH, Urine 5.5 (5.0-9.0)
[2017-09-19 17:12] LABS: Bacteria/HPF None Seen HPF (None Seen); RBC/HPF GREATER THAN 50-TNTC HPF (0-3); Squamous Epithelial 0-3 HPF (0-3)
[2017-09-19 17:18] LABS: Pathc Cast-AUWi Flag 2.61 (0-2.49)
[2017-09-19 17:36] LABS: Hyaline Casts/LPF 0-3 HYALINE CAST LPF (0-3 Hyaline); Other Casts/LPF None Seen LPF (0-3 Hyaline)
--- NOTE | 2017-09-19 18:53 | PDOC.CTH ---
Cardiology Progress Note - Subjective He is doing better. He remains in sinus. - Objective Vital Signs Temp Pulse Pulse Pulse Resp BP BP 09/19/17 09:55 76 84 132/60 132/59 L 09/19/17 08:32 85 121/61 09/19/17 07:33 97.2 F L 81 17 BP Pulse Ox Pulse Ox 09/19/17 09:55 09/19/17 08:32 92 L 09/19/17 07:33 110/53 L 96 Weight 278 lb 6.4 oz 09/18/17 09/19/17 09/20/17 06:59 06:59 06:59 Intake Total 1220 2444 Output Total 1500 2000 Balance -280 444 - Physical Examination General/Neuro: NAD Neck: no JVD present Lungs: CTA, unlabored respirations Heart: RRR Abdomen: NT/ND Extremities: + edema B (1+) - Telemetry Telemetry Rhythm: NSR - Labs Result Diagrams: 09/19/17 04:50 09/19/17 04:50 Troponin/CKMB CK-MB (CK-2) 1.7 ng/mL (0-6.6) 09/13/17 10:05 Troponin I 1.169 ng/mL (< 0.028) H* 09/14/17 07:11 - Assessment/Plan 1. Acute on chronic diastolic heart failure. 2. Paroxysmal afib 3. S/P DCCV 4. Presence of an AICD. 5. S/P BLANCO ligation during open heart surgery with no flow seen on CESAR. 6. S/P CABG in the past 7. S/P Aflutter ablation in the past. PLAN: - Continue amiodarone at current dose for 10 more days then down to 200 mg daily. - No anticoagulation required as BLANCO is well ligated. - Replace K - Continue other meds. - Placement
[2017-09-19 19:22] LABS: Hemoglobin 13.8 g/dL (14.0-18.0); Platelet Count 154 thou/uL (130-400)
[2017-09-19] MEDS: Aspirin 81 mg Enteric Coated Tablet PO SCH (20:42)
[2017-09-19] MEDS: Atorvastatin Calcium 40 MG TAB PO SCH (20:42)
[2017-09-20] MEDS: Levothyroxine Sodium 100 MCG TAB PO SCH (06:32)
[2017-09-20] MEDS: Acetaminophen/Codeine 30-300mg Tablet PO PRN ×3 (06:34→20:36)
[2017-09-20] MEDS: Furosemide 40 MG TAB PO SCH (08:37)
[2017-09-20] MEDS: Ferrous Sulfate 325 MG TAB PO SCH (08:38)
[2017-09-20] MEDS: Amiodarone 200 MG TAB PO SCH ×2 (08:38→20:32)
[2017-09-20] MEDS: Famotidine 20 MG TAB PO SCH ×2 (08:39→20:35)
[2017-09-20] MEDS: Cyanocobalamin (Vitamin B-12) 1,000 MCG TAB PO SCH (08:39)
[2017-09-20] MEDS: Enoxaparin Sodium 80 MG/0.8 ML SYRINGE SC SCH ×2 (08:39→20:33)
[2017-09-20] MEDS: Potassium Chloride 20 MEQ TAB PO SCH (08:39)
--- NOTE | 2017-09-20 16:36 | PDOC.PN ---
- Subjective Encounter Start Date: 09/20/17 Encounter Start Time: 13:50 Pt with stridor this afternoon, nof/C. says difficulty swallowng, pt says it just phlegm. no F/C, no N/V/d/C. Case management notes reivewed. pt accepted, but no beds. expected to be able to go to [facility] friday all systems neg x as above - Objective MAR Reviewed: Yes Vital Signs & Weight: Vital Signs (12 hours) Temp Pulse Resp BP Pulse Ox 09/20/17 12:35 97.4 F L 87 18 125/59 L 95 09/20/17 08:54 98.7 F 88 17 113/58 L 89 L 09/20/17 08:05 98.7 F 88 17 Weight Weight 276 lb 6.4 oz I&O: 09/19/17 09/20/17 09/21/17 06:59 06:59 06:59 Intake Total 2444 320 Output Total 2000 400 Balance 444 -80 Result Diagrams: 09/19/17 18:49 09/19/17 18:49 Additional Labs: Accuchecks 09/20/17 09/20/17 09/19/17 10:39 05:54 21:00 POC Glucose 157 H 144 H 202 H 09/19/17 16:51 POC Glucose 136 H Phys Exam - Physical Examination Constitutional: NAD HEENT: PERRLA, moist MMs, sclera anicteric, oral pharynx no lesions Neck: no nodes, no JVD, supple, full ROM Respiratory: no wheezing, no rales, no rhonchi, clear to auscultation bilateral upper airway stridor with forceful expiration Cardiovascular: RRR, no significant murmur, no rub Gastrointestinal: soft, non-tender, no distention, positive bowel sounds Musculoskeletal: pulses present, edema present Neurological: non-focal, normal sensation, moves all 4 limbs Lymphatic: no nodes Psychiatric: normal affect, A&O x 3 Skin: no rash, normal turgor, cap refill <2 seconds Dx/Plan (1) Acute on chronic diastolic CHF, NYHA class 2 and ACC/AHA stage C Code(s): I50.33 - ACUTE ON CHRONIC DIASTOLIC (CONGESTIVE) HEART FAILURE Status : Acute Comment: continue IV furosemide (2) Atrial fibrillation Code(s): I48.91 - UNSPECIFIED ATRIAL FIBRILLATION Status: Acute Qualifiers: Atrial fibrillation type: paroxysmal Qualified Code(s): I48.0 - Paroxysmal atrial fibrillation Comment: S/p cardioversion, now in NSR. Dr Bright/Kristine following. continue to monitor. IPR friday? (3) Elevated troponin I level Code(s): R74.8 - ABNORMAL LEVELS OF OTHER SERUM ENZYMES Status: Suspected Comment: demand ischemia vs. sepsis, unable to determine exact etiology (4) Hypotension Status: Resolved Qualifiers: Hypotension type: other hypotension type Qualified Code(s): I95.89 - Other hypotension Comment: Improved, off abx, not reoccurring suspect to be secondary to a. fib (5) Hematuria Code(s): R31.9 - HEMATURIA, UNSPECIFIED Status: Resolved Comment: Lovenox is on hold (6) Orthostatic hypotension Code(s): I95.1 - ORTHOSTATIC HYPOTENSION Status: Resolved Comment: monitor, gone after cardioversion (7) Physical deconditioning Code(s): R53.81 - OTHER MALAISE Status: Acute (8) Anemia, iron deficiency Code(s): D50.9 - IRON DEFICIENCY ANEMIA, UNSPECIFIED Status: Chronic Qualifiers: Iron deficiency anemia type: inadequate dietary iron intake Qualified Code( s): D50.8 - Other iron deficiency anemias (9) CAD (coronary artery disease) Code(s): I25.10 - ATHSCL HEART DISEASE OF [place] CORONARY ARTERY W/O ANG PCTRS Status: Chronic Qualifiers: Coronary Disease-Associated Artery/Lesion type: bypass graft [place] vs. transplanted heart: [place] heart Associated angina: without angina Qualified Code(s): I25.810 - Atherosclerosis of coronary artery bypass graft(s) without angina pectoris (10) DM2 (diabetes mellitus, type 2) Status: Chronic Qualifiers: Diabetes mellitus usp insulin use: without usp use Diabetes mellitus complication status: with unspecified complications Qualified Code(s) : E11.8 - Type 2 diabetes mellitus with unspecified complications Comment: Controlled (11) H/O cirrhosis Code(s): Z87.19 - PERSONAL HISTORY OF OTHER DISEASES OF THE DIGESTIVE SYSTEM Status: Chronic (12) HLD (hyperlipidemia) Code(s): E78.5 - HYPERLIPIDEMIA, UNSPECIFIED Status: Chronic Qualifiers: Hyperlipidemia type: unspecified Qualified Code(s): E78.5 - Hyperlipidemia , unspecified Comment: on Statin (13) HTN (hypertension) Code(s): I10 - ESSENTIAL (PRIMARY) HYPERTENSION Status: Chronic Qualifiers: Hypertension type: essential hypertension Qualified Code(s): I10 - Essential (primary) hypertension Comment: Hold antihypertensives due to hypotension (14) Hypothyroidism Code(s): E03.9 - HYPOTHYROIDISM, UNSPECIFIED Status: Chronic Qualifiers: Hypothyroidism type: unspecified Qualified Code(s): E03.9 - Hypothyroidism , unspecified Comment: Repeat thyroid profile in 6-8 weeks. fT4 normal, fT3 low (15) JORDAN (obstructive sleep apnea) Code(s): G47.33 - OBSTRUCTIVE SLEEP APNEA (ADULT) (PEDIATRIC) Status: Chronic - Plan cont current plan of care, plan discussed w/ family, PT/OT, out of bed/ambulate * . ? aspiration, racemic epi nebs PRN, guaifen added, NT suctioning as needed
--- NOTE | 2017-09-20 20:31 | PDOC.CTH ---
Cardiology Progress Note - Subjective He is doing better today. breathing is better. - Objective Vital Signs Temp Pulse Resp BP Pulse Ox 09/20/17 19:00 98.7 F 89 18 106/50 L 92 L 09/20/17 16:31 97.8 F 92 18 121/57 L 95 09/20/17 12:35 97.4 F L 87 18 125/59 L 95 09/20/17 08:54 98.7 F 88 17 113/58 L 89 L Weight 276 lb 6.4 oz 09/19/17 09/20/17 09/21/17 06:59 06:59 06:59 Intake Total 2444 320 987 Output Total 1999 400 880 Balance 444 -80 107 - Physical Examination General/Neuro: alert & oriented x3, NAD Neck: no JVD present Lungs: unlabored respirations Heart: RRR Abdomen: NT/ND Extremities: + edema B (1+) - Telemetry Telemetry Rhythm: NSR - Labs Result Diagrams: 09/19/17 18:49 09/19/17 18:49 Troponin/CKMB CK-MB (CK-2) 1.7 ng/mL (0-6.6) 09/13/17 10:05 Troponin I 1.169 ng/mL (< 0.028) H* 09/14/17 07:11 - Assessment/Plan 1. Acute on chronic diastolic heart failure. 2. Paroxysmal afib 3. S/P DCCV 4. Presence of an AICD. 5. S/P BLANCO ligation during open heart surgery with no flow seen on CESAR. 6. S/P CABG in the past 7. S/P Aflutter ablation in the past. PLAN: - Continue amiodarone at current dose for 9 more days then down to 200 mg daily. - No anticoagulation required for afib as BLANCO is well ligated. Aspirin alone for stroke prophylaxis. - Replace K - Continue other meds. - Placement
[2017-09-20] MEDS: Atorvastatin Calcium 40 MG TAB PO SCH (20:33)
[2017-09-20] MEDS: Aspirin 81 mg Enteric Coated Tablet PO SCH (20:33)
[2017-09-20] MEDS: guaiFENesin ER 600 MG TAB PO SCH (20:35)
[2017-09-21] MEDS: Levothyroxine Sodium 100 MCG TAB PO SCH (05:40)
[2017-09-21] MEDS: Famotidine 20 MG TAB PO SCH ×2 (08:47→21:56)
[2017-09-21] MEDS: Amiodarone 200 MG TAB PO SCH ×2 (08:47→21:56)
[2017-09-21] MEDS: Furosemide 40 MG TAB PO SCH (08:48)
[2017-09-21] MEDS: Potassium Chloride 20 MEQ TAB PO SCH (08:50)
[2017-09-21] MEDS: guaiFENesin ER 600 MG TAB PO SCH ×2 (08:50→21:57)
[2017-09-21] MEDS: Cyanocobalamin (Vitamin B-12) 1,000 MCG TAB PO SCH (08:50)
[2017-09-21] MEDS: Ferrous Sulfate 325 MG TAB PO SCH (08:50)
[2017-09-21] MEDS: Enoxaparin Sodium 80 MG/0.8 ML SYRINGE SC SCH ×2 (08:51→21:56)
[2017-09-21] MEDS ORDERED: Ondansetron PF 4 MG/2 ML Vial IVP PRN (12:05)
[2017-09-21] MEDS ORDERED: Ondansetron ODT 8 MG TAB SL PRN (12:06)
--- NOTE | 2017-09-21 15:05 | PDOC.CTH ---
Cardiology Progress Note - Subjective Has been having nausea today and is vomiting. - Objective Vital Signs Temp Pulse Resp BP BP Pulse Ox 09/21/17 12:00 97.8 F 89 18 121/62 94 L 09/21/17 11:30 92 L 09/21/17 08:00 98 F 86 20 131/67 131/67 94 L 09/21/17 04:00 97.7 F 89 24 H 125/60 95 Weight 276 lb 12.8 oz 09/20/17 09/21/17 09/22/17 06:59 06:59 06:59 Intake Total 320 987 Output Total 400 880 Balance -80 107 - Physical Examination General/Neuro: alert & oriented x3, NAD Neck: no JVD present Lungs: CTA, unlabored respirations Heart: RRR Abdomen: NT/ND Extremities: + edema B (1+) - Telemetry Telemetry Rhythm: NSR - Labs Result Diagrams: 09/19/17 18:49 09/19/17 18:49 Troponin/CKMB CK-MB (CK-2) 1.7 ng/mL (0-6.6) 09/13/17 10:05 Troponin I 1.169 ng/mL (< 0.028) H* 09/14/17 07:11 - Assessment/Plan 1. Acute on chronic diastolic heart failure. 2. Paroxysmal afib 3. S/P DCCV 4. Presence of an AICD. 5. S/P BLANCO ligation during open heart surgery with no flow seen on CESAR. 6. S/P CABG in the past 7. S/P Aflutter ablation in the past. 8. Nausea PLAN: - Continue amiodarone at current dose for 8 more days then down to 200 mg daily. - No anticoagulation required for afib as BLANCO is well ligated. Aspirin alone for stroke prophylaxis. - Continue other meds. - Placement
[2017-09-21 19:32] LABS: Hemoglobin 15.1 g/dL (14.0-18.0); Platelet Count 177 thou/uL (130-400)
[2017-09-21] MEDS: Aspirin 81 mg Enteric Coated Tablet PO SCH (21:56)
[2017-09-21] MEDS: Atorvastatin Calcium 40 MG TAB PO SCH (21:56)
[2017-09-21] MEDS: Acetaminophen/Codeine 30-300mg Tablet PO PRN (21:57)
[2017-09-22] MEDS: Levothyroxine Sodium 100 MCG TAB PO SCH (05:22)
--- NOTE | 2017-09-22 06:37 | PDOC.PN ---
- Subjective Encounter Start Date: 09/21/17 Encounter Start Time: 13:50 Follow up for Afib with RVR, hypotension and acute on chronic combined CHF Pt awaitng placement at [facility] Pt complains that PT got him up and left him on the toilet for 20 mins. called nrses, PT had removed his gait belt. was concerned becasue return to his bed with nurses was difficult Still with trouble with swallowing, less phlem today NO F/C, no N/V/D/c, no CP or SOB All systems reviewed and neg x as above - Objective MAR Reviewed: Yes Vital Signs & Weight: Vital Signs (12 hours) Temp Pulse Resp BP Pulse Ox 09/22/17 04:00 98.9 F 92 22 H 114/51 L 93 L 09/21/17 19:00 97.7 F 94 18 118/57 L 95 Weight Weight 276 lb 12.8 oz I&O: 09/20/17 09/21/17 09/22/17 06:59 06:59 06:59 Intake Total 320 987 600 Output Total 937 109 1936 Balance -80 107 -650 Result Diagrams: 09/21/17 19:24 09/21/17 19:24 Additional Labs: Accuchecks 09/21/17 09/21/17 09/21/17 20:46 17:15 11:02 POC Glucose 179 H 142 H 154 H Phys Exam - Physical Examination Constitutional: NAD HEENT: PERRLA, moist MMs, sclera anicteric, oral pharynx no lesions Neck: no nodes, no JVD, supple, full ROM Respiratory: no wheezing, no rales, no rhonchi, clear to auscultation bilateral Cardiovascular: RRR, no rub HSM stable Gastrointestinal: soft, non-tender, no distention, positive bowel sounds Musculoskeletal: no edema Neurological: non-focal, normal sensation, moves all 4 limbs Lymphatic: no nodes Psychiatric: normal affect, A&O x 3 Skin: no rash, normal turgor, cap refill <2 seconds Dx/Plan (1) Acute on chronic diastolic CHF, NYHA class 2 and ACC/AHA stage C Code(s): I50.33 - ACUTE ON CHRONIC DIASTOLIC (CONGESTIVE) HEART FAILURE Status : Acute Comment: continue IV furosemide (2) Atrial fibrillation Code(s): I48.91 - UNSPECIFIED ATRIAL FIBRILLATION Status: Acute Qualifiers: Atrial fibrillation type: paroxysmal Qualified Code(s): I48.0 - Paroxysmal atrial fibrillation Comment: S/p cardioversion, now in NSR. Dr Bright/Kristine following. continue to monitor. IPR friday? (3) Elevated troponin I level Code(s): R74.8 - ABNORMAL LEVELS OF OTHER SERUM ENZYMES Status: Suspected Comment: demand ischemia vs. sepsis, unable to determine exact etiology (4) Hypotension Status: Resolved Qualifiers: Hypotension type: other hypotension type Qualified Code(s): I95.89 - Other hypotension Comment: Improved, off abx, not reoccurring suspect to be secondary to a. fib (5) Hematuria Code(s): R31.9 - HEMATURIA, UNSPECIFIED Status: Resolved Comment: Lovenox is on hold (6) Orthostatic hypotension Code(s): I95.1 - ORTHOSTATIC HYPOTENSION Status: Resolved Comment: monitor, gone after cardioversion (7) Physical deconditioning Code(s): R53.81 - OTHER MALAISE Status: Acute (8) Anemia, iron deficiency Code(s): D50.9 - IRON DEFICIENCY ANEMIA, UNSPECIFIED Status: Chronic Qualifiers: Iron deficiency anemia type: inadequate dietary iron intake Qualified Code( s): D50.8 - Other iron deficiency anemias (9) CAD (coronary artery disease) Code(s): I25.10 - ATHSCL HEART DISEASE OF [place] CORONARY ARTERY W/O ANG PCTRS Status: Chronic Qualifiers: Coronary Disease-Associated Artery/Lesion type: bypass graft [place] vs. transplanted heart: [place] heart Associated angina: without angina Qualified Code(s): I25.810 - Atherosclerosis of coronary artery bypass graft(s) without angina pectoris (10) DM2 (diabetes mellitus, type 2) Status: Chronic Qualifiers: Diabetes mellitus director long term care insulin use: without director long term care use Diabetes mellitus complication status: with unspecified complications Qualified Code(s) : E11.8 - Type 2 diabetes mellitus with unspecified complications Comment: Controlled (11) H/O cirrhosis Code(s): Z87.19 - PERSONAL HISTORY OF OTHER DISEASES OF THE DIGESTIVE SYSTEM Status: Chronic (12) HLD (hyperlipidemia) Code(s): E78.5 - HYPERLIPIDEMIA, UNSPECIFIED Status: Chronic Qualifiers: Hyperlipidemia type: unspecified Qualified Code(s): E78.5 - Hyperlipidemia , unspecified Comment: on Statin (13) HTN (hypertension) Code(s): I10 - ESSENTIAL (PRIMARY) HYPERTENSION Status: Chronic Qualifiers: Hypertension type: essential hypertension Qualified Code(s): I10 - Essential (primary) hypertension Comment: Hold antihypertensives due to hypotension (14) Hypothyroidism Code(s): E03.9 - HYPOTHYROIDISM, UNSPECIFIED Status: Chronic Qualifiers: Hypothyroidism type: unspecified Qualified Code(s): E03.9 - Hypothyroidism , unspecified Comment: Repeat thyroid profile in 6-8 weeks. fT4 normal, fT3 low (15) JORDAN (obstructive sleep apnea) Code(s): G47.33 - OBSTRUCTIVE SLEEP APNEA (ADULT) (PEDIATRIC) Status: Chronic - Plan cont current plan of care, plan discussed w/ family, PT/OT, social media developer, respiratory therapy, out of bed/ambulate * .
[2017-09-22] MEDS: Furosemide 40 MG TAB PO SCH (09:03)
[2017-09-22] MEDS: Amiodarone 200 MG TAB PO SCH (09:04)
[2017-09-22] MEDS: guaiFENesin ER 600 MG TAB PO SCH (09:04)
[2017-09-22] MEDS: Famotidine 20 MG TAB PO SCH (09:04)
[2017-09-22] MEDS: Acetaminophen/Codeine 30-300mg Tablet PO PRN (09:05)
[2017-09-22] MEDS: Cyanocobalamin (Vitamin B-12) 1,000 MCG TAB PO SCH (09:07)
[2017-09-22] MEDS: Ferrous Sulfate 325 MG TAB PO SCH (09:07)
[2017-09-22] MEDS: Potassium Chloride 20 MEQ TAB PO SCH (09:10)
--- NOTE | 2017-09-22 10:31 | PRG ---
DATE OF SERVICE: 09/22/2017 SUBJECTIVE: Mr. Subramanian is eating small amounts. He cannot eat much. He says back of his neck hurts and cannot get comfortable. He is very inactive. Says his breathing is a little bit short. PHYSICAL EXAMINATION: VITAL SIGNS: Blood pressure 132/60, pulse is 90, it is sinus. LUNGS: Clear. CARDIAC: Normal S1, S2. ABDOMEN: Soft, nontender. EXTREMITIES: There is moderate edema. ASSESSMENT: 1. Diastolic congestive heart failure. 2. Atrial fibrillation, back in sinus rhythm. 3. Previous pacemaker defibrillator. PLAN: 1. We will increase furosemide orally. 2. Continue anticoagulation for now. 3. Awaiting placement. Long-term prognosis appears poor due to severe and activity and seems to be unable to eat adequately.
[2017-09-22] MEDS ORDERED: Furosemide 40 MG TAB PO SCH (14:00)
[2017-09-22] MEDS: Enoxaparin Sodium 80 MG/0.8 ML SYRINGE SC SCH (15:37)
[2017-09-22] MEDS ORDERED: Albuterol Sulfate 2.5 mg/3 ml Neb NEB PRN (16:29)
[2017-09-22 16:55] LABS: Hemoglobin 14.4 g/dL (14.0-18.0); Mean Corpuscular HGB CONC 32.4 g/dL (32.0-36.0); Mean Corpuscular Hemoglobin 31.3 pg (27.0-31.0); Mean Corpuscular Volume 96.4 fl (80.0-94.0); Mean Platelet Volume 7.7 fL (7.4-10.4); Platelet Count 160 thou/uL (130-400); RBC Distribution Width 13.7 % (11.5-14.5); Red Blood Cell (RBC) Count 4.59 mill/uL (4.70-6.10); White Blood Cell (WBC) Count 19.5 thou/uL (4.8-10.8)
[2017-09-22 17:05] LABS: pH, Arterial 7.43 (7.35-7.45)
[2017-09-22 17:06] LABS: Actual Bicarbonate (HCO3a) 22.2 mEq/L (22-28); Base Excess (BEa) -1.3 mEq/L (-2.0 to +3.0); Calcium, Ionized 1.1 mmol/L (1.12-1.30); Hematocrit-ABG 45.5 % (42.0-52.0); Hemoglobin (Hb) 13.5 g/dL (14.0-18.0); O2 Tension (PaO2) 54.2 mmHg (> 70.0); Potassium - ABG Lab 3.6 mmol/L (3.70-5.30); Puncture Site RBA
[2017-09-22 17:19] LABS: Anion Gap 13 mmol/L (10-20); BUN (Urea Nitrogen) 15 mg/dL (8.4-25.7); Calc. Creatinine Clearance 106 mL/min (70-130); Calcium 8.5 mg/dL (7.8-10.44); Carbon Dioxide 24 mmol/L (23-31); Chloride 103 mmol/L (98-107); Estimated GFR-MDRD 63; Glucose 174 mg/dL (80-115); Magnesium 1.8 mg/dL (1.6-2.6); Potassium 4.3 mmol/L (3.5-5.1); Sodium 136 mmol/L (136-145)
[2017-09-22 17:22] LABS: Band 3 % (5-11); Lymphocytes 5 % (21-51); MDiff Complete? YES; Monocytes 5 % (0-10); Neutrophil 87 % (42-75); PLT Morphology Comment Appears Adequate; RBC Morphology Normal
[2017-09-22] MEDS ORDERED: Cefepime 2 GM in Sodium Chloride 0.9% 100 ML IVPB SCH (17:45)
--- NOTE | 2017-09-22 18:21 | RAD ---
PORTABLE CHEST: HISTORY: Respiratory distress. COMPARISON: 09/13/2017 FINDINGS: Heart size is enlarged with an internal defibrillator device. There are asymmetric right-sided inter stitial alveolar lung changes present in both upper and lower lung zones. IMPRESSION: Cardiomegaly with asymmetric interstitial alveolar lung changes in the right lung as compared to the left. This could represent pneumonia or an asymmetric edema pattern. Follow-up chest films would be recommended. POS: [facility]
[2017-09-22] MEDS ORDERED: Lorazepam 1 MG TAB PO SCH (20:15)
[2017-09-22] MEDS ORDERED: Furosemide 40 MG/4 ML VIAL SLOW IVP SCH (21:30)
[2017-09-22 21:42] LABS: Actual Bicarbonate (HCO3a) 13.2 mEq/L (22-28); Base Excess (BEa) 13.2 mEq/L (-2.0 to +3.0); CO2 Tension 26.9 mmHg (35.0-45.0); Carboxyhemoglobin (COHb) 1.8 gm% (0.0-3.0); Hematocrit-ABG 48.6 % (42.0-52.0); Hemoglobin (Hb) 14.1 g/dL (14.0-18.0); O2 Tension (PaO2) 65.9 mmHg (> 70.0); Potassium - ABG Lab 4.1 mmol/L (3.70-5.30); pH, Arterial 7.31 (7.35-7.45)
[2017-09-22 21:43] LABS: ALV-art Gradient 185.675 (0-20); Calcium, Ionized 1.1 mmol/L (1.12-1.30); Puncture Site LRA
--- NOTE | 2017-09-22 22:15 | PDOC.EVN ---
Event Note - Event Note Event Note: Called by nursing with patient in resp distress on BiPAP transferred from telemetry to [facility] 09/22/17. PCXR showing increasing infiltrate of entire R hemithorax previously receiving Cefepime for suspected pneumonia. Hx significant for diastolic CHF and CAD. Ramón Canela called as pt needing higher level of care and transferred to CCU. PE: resp distress, accessory muscle use, lethargic and somnolent, RR 50's on BiPAP 50% FIO2, O2 sats in 90's, HR 110's Chest: Coarse sounds in R chest and diminished bilaterally, accessory muscle use CV: S1, S2 tachycardic ABD: obese, soft, NT, no mass palpable EXT: mottled, diaphoretic, thready pulses distally Neuro: lethargic, somnolent, does not follow commands : Raymundo with clear urine Labs reviewed: Lactate 11, ABG: pH 7.31, pCO2 26.9, pO2 65.9, HCO3 13, WBC 37K, 12% bands PCXR - R hemithorax with diffuse infiltrate, PM in place, cardiomegaly Tele - tachycardia in 110's, pacer spike noted A/P: Septic shock/severe sepsis - pt transferred to CCU and Code Blue initiated, pt intubated per ER attending and airway secured, tachycardia noted on telemetry with ventricular tachycardia, pt shocked x 1 and given ACLS protocol with Epinephrine, sodium bicarbonate, Amiodarone and chest compressions. Code continued from 2242 until 2342. After multiple rounds of epinephrine and return of pulse for approximately 15 minutes an epinephrine gtt was started. Pt remained critical and tenuous with loss of pulse and tx directed at PEA. Attempts were made to place a R femoral CVC but this was unsuccessful. Aggressive and sustained ACLS continued for approximately 1 hour, however, resuscitation efforts were unsuccessful. Discussed situation with pt's family and spouse and the decision to terminate CPR was made. Pt at 2342, no palpable pulse, no spontaneous respirations, pupils fixed and dilated. Family present at bedside. Decedent affairs notified. Total critical care time: 65min
--- NOTE | 2017-09-22 22:51 | RAD ---
CHEST ONE VIEW: HISTORY: Re-evaluate pulmonary status. COMPARISON: 09/22/2017 FINDINGS: Persistent cardiomegaly. Redemonstration of left-sided transvenous pacemaker. Essentially diffuse i nterstitial and alveolar infiltrates, right greater than left. Small bilateral pleural effusion. No pneumothorax. IMPRESSION: 1. No significant interval change. 2. Pneumonia versus congestive heart failure. POS: [facility]
[2017-09-22] MEDS ORDERED: Sodium Bicarb 50 MEQ/50 ML Abboject 8.4% SYRINGE ONE (23:00)
[2017-09-22] MEDS ORDERED: EPINEPHrine 4 MG in Dextrose 5% in Water 250 ML IV SCH (23:00)
[2017-09-22] MEDS ORDERED: PROPOFOL 200 MG/20 ML VIAL ONE (23:00)
[2017-09-22] MEDS ORDERED: EPINEPHrine 1 MG/10 ML Abboject SYRINGE ONE (23:00)
[2017-09-22] MEDS ORDERED: DOPamine/D5W 400 mg/250 ml PREMIX ONE (23:00)
[2017-09-22 23:24] LABS: ALT (SGPT) 50 U/L (8-55); AST (SGOT) 99 U/L (5-34); Albumin 2.4 g/dL (3.4-4.8); Alkaline Phosphatase 219 U/L (40-150); Anion Gap 23 mmol/L (10-20); BUN (Urea Nitrogen) 18 mg/dL (8.4-25.7); Bilirubin, Total 1.5 mg/dL (0.2-1.2); Calc. Creatinine Clearance 80 mL/min (70-130); Calcium 8.5 mg/dL (7.8-10.44); Carbon Dioxide 13 mmol/L (23-31); Chloride 104 mmol/L (98-107); Estimated GFR-MDRD 46; Glucose 157 mg/dL (80-115); Magnesium 1.8 mg/dL (1.6-2.6); Phosphorus 5.7 mg/dL (2.3-4.7); Potassium 4.3 mmol/L (3.5-5.1); Protein, Total 6.4 g/dL (5.8-8.1); Sodium 136 mmol/L (136-145)
[2017-09-22 23:29] LABS: Hemoglobin 14.6 g/dL (14.0-18.0); Mean Corpuscular HGB CONC 31.7 g/dL (32.0-36.0); Mean Corpuscular Hemoglobin 31.3 pg (27.0-31.0); Mean Corpuscular Volume 98.7 fl (80.0-94.0); Mean Platelet Volume 8.7 fL (7.4-10.4); Platelet Count 242 thou/uL (130-400); RBC Distribution Width 13.9 % (11.5-14.5); Red Blood Cell (RBC) Count 4.66 mill/uL (4.70-6.10)
[2017-09-22 23:32] LABS: CO2 Tension 43.8 mmHg (35.0-45.0); pH, Arterial 7.17 (7.35-7.45)
[2017-09-22 23:33] LABS: Actual Bicarbonate (HCO3a) 15.4 mEq/L (22-28); Base Excess (BEa) -12.6 mEq/L (-2.0 to +3.0); O2 Tension (PaO2) 48.6 mmHg (> 70.0)
[2017-09-22 23:34] LABS: Carboxyhemoglobin (COHb) 1.5 gm% (0.0-3.0); Hematocrit-ABG 34.8 % (42.0-52.0); Hemoglobin (Hb) 11.6 g/dL (14.0-18.0)
[2017-09-22 23:35] LABS: Calcium, Ionized 0.9 mmol/L (1.12-1.30); Potassium - ABG Lab 4.5 mmol/L (3.70-5.30); Puncture Site ALINE
[2017-09-22 23:47] LABS: Band 12 % (5-11); Lymphocytes 5 % (21-51); MDiff Complete? YES; Macrocytosis SLIGHT = 6-15 cells (100X) (0-5/hpf); Monocytes 5 % (0-10); Neutrophil 77 % (42-75); PLT Morphology Comment Appears Adequate; Reactive Lymphocytes 1 % (0-10)
[2017-09-23 00:45] VITALS: TEMP 99.7
[2017-09-23 01:35] VITALS: BP 136/66
[2017-09-23] MEDS ORDERED: Cefepime 2 GM in Sodium Chloride 0.9% 100 ML IVPB SCH (09:00)
--- NOTE | 2017-09-23 11:23 | DS ---
DATE OF ADMISSION: 09/13/2017 DATE OF : 09/22/2017 TIME OF : 2342 hours. PRIMARY CARE PHYSICIAN: Dr. Moncho Rivera. PRIMARY AMBULANCE OFFICER: Dr. Jessica Bright. CAUSE OF : 1. Cardiac arrest on immediate onset. 2. Respiratory arrest, 1 hour. 3. Acute on chronic hypoxic respiratory failure. 4. Septic shock. 5. Healthcare associated pneumonia, right hemithorax. 6. Atrial fibrillation, status post cardioversion. 7. Acute on chronic diastolic congestive heart failure. CONSULTATIONS: Cardiology, Dr. Ilya Norton taken over by Dr. Jessica Bright, Pulmonary Critical C are, Dr. Mainor Santoyo. PROCEDURES: 1. Transesophageal echocardiogram, 09/18/2017. 2. Discontinue cardioversion, 09/18/2017. HISTORY AND PHYSICAL: Mr. Subramanian is a 72-year-old white male who was in the emergency department on the day of admission for complaints of low blood pressure, shortness of breath. Workup showed acute heart failure, low blood pressure, atrial fibrillation, possible pneumonia. White blood cell count w as elevated. He was started on broad spectrum antibiotics for possible sepsis. HOSPITAL COURSE: The patient was admitted by Dr. Cadet, vancomycin and cefepime was started empirical ly, a chest x-ray was largely unrevealing. The patient was found to be in atrial fibrillation with l ow output hypotension. He was remained in the ICU from 09/13/2017 to 09/19/2017. He was been adequately diuresed, cardiover enma on 09/18/2017 after a negative CESAR for clot burden, and blood pressure recovered nicely. His [facility] te blood cell count remained normal, no signs of infection, antibiotics were stopped. The patient was transferred to the floor. It was felt the evaluation by Cardiology with rehab approp shanel. We are awaiting for insurance approval. From 09/19/2017 to 09/22/2017, the patient awaited r ehab approval; however, in the morning of 09/22/2017, he looked more tired and with slightly increase d work of breathing. His chest exam remained clear. He remained afebrile, chemistries to be normal with H&H to be stable. Later that afternoon at 09/22/2017, the patient looked to be in more respirat ory distress. It was elected not to discharge the patient and continue to treat. Due to increased w ork of breathing, chest x-ray and ABG were obtained. ABG was largely normal, chest x-ray showed a ri ght hemithorax infiltrate that was new. He developed increasing respiratory distress and was transfe rred to the [facility] for BiPAP and antibiotics. Patient was tenuous to the evening, on around 9:30 p.m. on 09/22/2017, the patient developed acute re spiratory failure, septic shock, and a code blue was initiated. He did lose pulse several times thro ughout the code, and despite a prolonged resuscitative efforts over an hour, the patient at 2 342. Family was notified. DISCHARGE CONDITION: . DISPOSITION: Family was notified and the patient was pronounced in the ICU. The patient was transfe rred to [facility] after they were contacted for remaining preparation.
== END 2017-09-23 04:25 | disposition expired | DRG 871 ==
LOC: ERS 09:38 → 2NO 14:00 → IMCU/EMU 09-14 01:08 → OBSVTOIN 09-14 01:52 → 2NO 09-18 16:56 → IMCU/EMU 09-22 17:42 → CCU 09-22 22:18
PROVIDERS: ADMIT Internal Medicine; ATTEND Internal Medicine
PROC: 5A09357 Assistance with Respiratory Ventilation, Less than 24 Consecutive Hours, Continuous Positive Airway Pressure (ICD-10-PCS; 2017-09-16)
PROC: 5A2204Z Restoration of Cardiac Rhythm, Single (ICD-10-PCS; principal; 2017-09-18)
PROC: 0BH17EZ Insertion of Endotracheal Airway into Trachea, Via Natural or Artificial Opening (ICD-10-PCS; 2017-09-23)
PROC: 5A12012 Performance of Cardiac Output, Single, Manual (ICD-10-PCS; 2017-09-23)
DX: A41.9 Sepsis, unspecified organism (principal); I50.33 Acute on chronic diastolic (congestive) heart failure; J96.21 Acute and chronic respiratory failure with hypoxia; R65.21 Severe sepsis with septic shock; J18.9 Pneumonia, unspecified organism; G93.41 Metabolic encephalopathy; I48.1 Persistent atrial fibrillation; I11.0 Hypertensive heart disease with heart failure; G47.33 Obstructive sleep apnea (adult) (pediatric); I25.10 Atherosclerotic heart disease of native coronary artery without angina pectoris; E03.9 Hypothyroidism, unspecified; E11.9 Type 2 diabetes mellitus without complications; E78.5 Hyperlipidemia, unspecified; K74.60 Unspecified cirrhosis of liver; F32.9 Major depressive disorder, single episode, unspecified; R31.0 Gross hematuria; I46.9 Cardiac arrest, cause unspecified; E66.9 Obesity, unspecified; Z68.36 Body mass index [BMI] 36.0-36.9, adult; G89.29 Other chronic pain; M54.9 Dorsalgia, unspecified; Z95.1 Presence of aortocoronary bypass graft; Z95.5 Presence of coronary angioplasty implant and graft; Z88.1 Allergy status to other antibiotic agents; Z79.82 Long term (current) use of aspirin; Z79.4 Long term (current) use of insulin; Z79.899 Other long term (current) drug therapy; Z95.810 Presence of automatic (implantable) cardiac defibrillator; Y95 Nosocomial condition
CPT/HCPCS: 36415; 36416; 71045; 71275; 74018; 76700; 76705; 80048; 80053; 80202; 81001; 81003; 81015; 82140; 82533; 82553; 82565; 82805; 83605; 83735; 83880; 84100; 84439; 84481; 84484; 85014; 85018; 85025; 85049; 85379; 85610; 85730; 87040; 87077; 87086; 87186; 92960; 93005; 93010; 93312; 94640; 94660; 96360; C1769; G8978-GP-CL; G8979-GP-CJ; G8987-GO-CL; G8988-GO-CJ; G8996-GN-CJ; G8996-GN-CK; G8996-GN-CL; G8997-GN-CI; J0171; J0282; J0692; J1265; J1650; J1885; J1956; J2270; J2405; J2704; J3370; J7050; J7070; J7611; J7620; Q0162